=== PATIENT | male | born 1960 | race Two or more races ===

== ENCOUNTER 2023-04-22 11:21 | Inpatient (IN) | payer MEDICAID, OTHER ==
[~2023-04-22] VITALS: Ht 172.7 cm; Wt 80.4 kg
[2023-04-22 12:37] LABS: Basophils # (auto) 0 10 ^3/uL (0-0.2); Basophils % (auto) 0.6 % (0.0-2.0); Eosinophils # (auto) 0.2 10 ^3/uL (0-0.8); Eosinophils % (auto) 2.4 % (0.0-7.0); Hematocrit 42.5 % (41.0-53.0); Hemoglobin 13.9 g/dL (13.5-17.5); Lymphocytes # (auto) 2.6 10 ^3/uL (0.4-5.4); Lymphocytes % (auto) 37.5 % (10.0-50.0); Mean Corpuscular Hemoglobin 29.8 pg (28.0-32.0); Mean Corpuscular Hgb Conc. 32.7 g/dL (32.0-36.0); Mean Corpuscular Volume 91.1 fL (80.0-100.0); Monocytes # (auto) 0.5 10 ^3/uL (0-1.3); Monocytes % (auto) 6.5 % (0.0-12.0); Neutrophils # (auto) 3.7 10 ^3/uL (1.6-8.6); Nucleated Red Blood Cells % 0.1 %; Red Blood Cells 4.66 10^6/uL (4.5-5.90); Red Cell Distribution Width 14.3 % (11.8-14.3)
[2023-04-22 12:45] LABS: INR 0.97 (0.9-1.15); Prothrombin Time 10.2 sec (9.3-11.8)
[2023-04-22 12:48] LABS: Alanine Aminotransferase 34 U/L (7-40); Albumin 4.9 g/dL (3.2-4.8); Alkaline Phosphatase 116 U/L (46-116); Anion Gap 7 (5-15); Aspartate Aminotransferase 15 U/L (13-40); BUN/Creatinine Ratio 11.3 (10.0-20.0); Bilirubin, Direct 0.1 mg/dL (<0.3); Bilirubin, Total 0.4 mg/dL (0.2-1.0); Blood Alcohol < 3.0 mg/dL (<10); Blood Urea Nitrogen 8 mg/dL (9-23); Carbon Dioxide 28 mmol/L (20-30); Chloride 106 mmol/L (98-107); Glucose 108 mg/dL (74-106); Potassium 3.8 mmol/L (3.5-5.1); Sodium 141 mmol/L (136-145)
[2023-04-22 12:49] LABS: Total Protein 7.1 g/dL (5.7-8.2)
[2023-04-22 12:50] LABS: Acetaminophen < 2.0 UG/ML (10.0-20.0)
[2023-04-22 12:56] LABS: Salicylate < 3.0 mg/dL (2.8-20.0)
[2023-04-22 13:19] LABS: Lipase 30 U/L (12-53)
[2023-04-22 13:20] LABS: Magnesium 2.1 mg/dL (1.6-2.6)
[2023-04-22 14:23] LABS: Phosphorus 3.9 mg/dL (2.4-5.1)
[2023-04-22 14:59] LABS: Erythrocyte Sedimentation Rate 64 mm/hr (0-20)
[2023-04-22 15:53] VITALS: PULSE 78; RESP 17; O2SAT 98
[2023-04-22 17:15] VITALS: BP 138/54; PULSE 80; RESP 16; TEMP 98; O2SAT 96
[2023-04-22 17:32] VITALS: BP 138/54; PULSE 80; RESP 16; TEMP 98; O2SAT 96
[2023-04-22] MEDS ORDERED: DEXTROSE (50%) 50ML SYRG IV PRN (18:30)
[2023-04-22] MEDS: METOPROLOL TARTRATE 25 MG TAB PO ONE (18:45)
[2023-04-22 20:26] VITALS: PULSE 83; RESP 16; O2SAT 95
[2023-04-22 21:00] VITALS: BP 125/59; PULSE 83; RESP 16; TEMP 97.8; O2SAT 95
[2023-04-22] MEDS: ATORVASTATIN 20 MG TAB PO SCH (22:06)
[2023-04-22] MEDS: ACCU-CHEK COMFORT CURVE STRIP VI SCH (22:06)
[2023-04-22] MEDS: ACETAMINOPHEN 325 MG TAB PO PRN (22:06)
[2023-04-22] MEDS: METOPROLOL TARTRATE 25 MG TAB PO SCH (22:07)
[2023-04-22] MEDS: ASPirin 81 mg TAB PO SCH (22:10)
[2023-04-22] MEDS: InsuLIN REG 1unit/0.01ml Soln (100units/ml) SC SCH (22:15)
[2023-04-23] VITALS (7 sets, daily range): BP systolic 95–122; BP diastolic 54–80; PULSE 71–84; RESP 16–20; TEMP 97.7–98.7; O2SAT 93–100
[2023-04-23 06:06] LABS: RPR Non Reactive (Non Reactive)
[2023-04-23] MEDS ORDERED: FAMO20TA10 PO (08:46)
[2023-04-23] MEDS ORDERED: METF-370 PO (08:46)
[2023-04-23] MEDS ORDERED: CLOP75TA70 PO (08:46)
[2023-04-23] MEDS ORDERED: ATO40T PO (08:46)
[2023-04-23] MEDS ORDERED: EMPA1TAB3 PO (08:46)
[2023-04-23] MEDS ORDERED: INSLANTI SC (08:46)
[2023-04-23] MEDS ORDERED: ASPirin 81 mg TAB PO SCH (10:00)
[2023-04-23] MEDS: CLOPIDOGREL BISULFATE 75 MG TAB PO SCH (12:16)
[2023-04-23] MEDS: ENOXAPARIN SOD 40 MG/0.4 ML SYRINGE SC SCH (12:16)
[2023-04-23] MEDS: LORazepam 2MG/ML-1ML VIAL IV PRN (13:41)
[2023-04-23] MEDS: LORazepam 2MG/ML-1ML VIAL ONE (13:48)
[2023-04-23] MEDS: LORazepam 2MG/ML-1ML VIAL IV ONE (13:49)
[2023-04-24 01:00] VITALS: BP 125/74; PULSE 70; RESP 17; TEMP 98.1; O2SAT 94
[2023-04-24 05:00] VITALS: BP 115/67; PULSE 68; RESP 17; TEMP 97.8; O2SAT 96
[2023-04-24 08:56] VITALS: BP 110/65; PULSE 82; RESP 19; TEMP 98.4; O2SAT 96
[2023-04-24 12:47] VITALS: BP 104/60; PULSE 91; RESP 19; TEMP 97.7; O2SAT 98
== END 2023-04-24 15:05 | disposition home or self-care (01) | DRG 111 ==
LOC: ER 11:21 → OVERFLOW 13:41 → EAST 16:01
PROVIDERS: ADMIT Nurse Practitioner Family; ATTEND Nurse Practitioner Family
DX: R42 Dizziness and giddiness (principal); I69.351 Hemiplegia and hemiparesis following cerebral infarction affecting right dominant side; H53.8 Other visual disturbances; R26.81 Unsteadiness on feet; E11.9 Type 2 diabetes mellitus without complications; Z83.3 Family history of diabetes mellitus; Z82.49 Family history of ischemic heart disease and other diseases of the circulatory system; I69.393 Ataxia following cerebral infarction; Z90.49 Acquired absence of other specified parts of digestive tract; Z82.5 Family history of asthma and other chronic lower respiratory diseases; Z80.1 Family history of malignant neoplasm of trachea, bronchus and lung; Z79.82 Long term (current) use of aspirin; Z79.02 Long term (current) use of antithrombotics/antiplatelets; Z79.899 Other long term (current) drug therapy
CPT/HCPCS: 36415; 70450; 70551; 71045; 80048; 80061; 80076; 80320; 80329; 82962; 83690; 83735; 84100; 84443; 84484; 85025; 85610; 85652; 86592; 92610; 93005; 93306; 93886; 97163; G0378; J1815

== ENCOUNTER 2023-06-08 14:02 | Inpatient (IN) | payer MEDICAID ==
[~2023-06-08] VITALS: Ht 172.7 cm; Wt 83.0 kg
[~2023-06-08 14:02] MED LIST: ATOR-507 PO; CLOP75TA70 PO; EMPA1TAB3 PO; FAMO20TA10 PO; INSLANTI SC; METF-370 PO
[2023-06-08 15:53] LABS: Basophils # (auto) 0.1 10 ^3/uL (0-0.2); Basophils % (auto) 0.6 % (0.0-2.0); Eosinophils # (auto) 0.4 10 ^3/uL (0-0.8); Eosinophils % (auto) 4.7 % (0.0-7.0); Hematocrit 42.9 % (41.0-53.0); Hemoglobin 14.4 g/dL (13.5-17.5); Lymphocytes # (auto) 3.3 10 ^3/uL (0.4-5.4); Lymphocytes % (auto) 39.6 % (10.0-50.0); Mean Corpuscular Hemoglobin 29.6 pg (28.0-32.0); Mean Corpuscular Hgb Conc. 33.5 g/dL (32.0-36.0); Mean Corpuscular Volume 88.2 fL (80.0-100.0); Monocytes # (auto) 0.5 10 ^3/uL (0-1.3); Monocytes % (auto) 6.5 % (0.0-12.0); Neutrophils # (auto) 4.1 10 ^3/uL (1.6-8.6); Neutrophils % (auto) 48.6 % (37.0-80.0); Nucleated Red Blood Cells % 0.1 %; Red Blood Cells 4.86 10^6/uL (4.5-5.90); Red Cell Distribution Width 14.2 % (11.8-14.3); White Blood Cell 8.4 10^3/uL (4.4-10.8)
[2023-06-08 16:12] LABS: Chloride 105 mmol/L (98-107); Potassium 4.1 mmol/L (3.5-5.1); Sodium 141 mmol/L (136-145)
[2023-06-08 16:13] LABS: Anion Gap 7 (5-15); Carbon Dioxide 29 mmol/L (20-30)
[2023-06-08 16:14] LABS: Calcium 9.7 mg/dL (8.5-10.1)
[2023-06-08 16:18] LABS: BUN/Creatinine Ratio 17.2 (10.0-20.0); Blood Urea Nitrogen 16 mg/dL (9-23); Glucose 169 mg/dL (74-106)
[2023-06-08] MEDS ORDERED: DEXTROSE (50%) 50ML SYRG IV PRN (17:15)
[2023-06-08] MEDS ORDERED: MORPHINE SULFATE INJ 2 MG/ml SYRG IV PRN (17:15)
[2023-06-08] MEDS ORDERED: NITROGLYCERIN 0.4 MG SL TAB SL PRN (17:15)
[2023-06-08] MEDS ORDERED: ONDANSETRON HCL 4 MG/2 ML VIAL IV PRN (17:15)
[2023-06-08 18:14] LABS: Free T4 (Free Thyroxine) 1.07 ng/dL (0.89-1.76)
[2023-06-08] MEDS: ACETAMINOPHEN 325 MG TAB PO PRN (21:32)
[2023-06-08] MEDS: LORazepam 2MG/ML-1ML VIAL IV ONE (21:32)
[2023-06-08] MEDS: ACCU-CHEK COMFORT CURVE STRIP VI SCH (21:35)
[2023-06-08] MEDS: InsuLIN REG 1unit/0.01ml Soln (100units/ml) SC SCH (21:53)
[2023-06-08] MEDS: INSULIN LANTUS (GLARGINE) 1 /0.01ml (100units/ml) SC SCH (21:53)
[2023-06-08 21:54] VITALS: PULSE 76; RESP 18; O2SAT 96
[2023-06-08] MEDS: ATORVASTATIN 20 MG TAB PO SCH (22:23)
[2023-06-08] MEDS: FAMOTIDINE 20 MG TAB PO SCH (22:23)
[2023-06-09] VITALS (7 sets, daily range): BP systolic 113–128; BP diastolic 65–77; PULSE 62–97; RESP 15–18; TEMP 97.9–98.3; O2SAT 77–97
[2023-06-09] MEDS: CLOPIDOGREL BISULFATE 75 MG TAB PO SCH (10:17)
[2023-06-09] MEDS: ASPirin 81 mg TAB PO SCH (10:18)
[2023-06-09] MEDS: LORazepam 2MG/ML-1ML VIAL IV ONE (10:46)
[2023-06-10 01:00] VITALS: BP 137/68; PULSE 78; RESP 18; TEMP 97.6; O2SAT 93
[2023-06-10 05:00] VITALS: BP 145/78; PULSE 76; RESP 18; TEMP 98.1; O2SAT 95
[2023-06-10 07:35] VITALS: PULSE 65
[2023-06-10 09:00] VITALS: BP 131/72; PULSE 78; RESP 18; TEMP 97.7; O2SAT 97
[2023-06-10 13:00] VITALS: BP 105/75; PULSE 73; RESP 18; TEMP 97.5; O2SAT 97
[2023-06-10] MEDS ORDERED: EMPA1TAB3 PO (14:28)
[2023-06-10] MEDS ORDERED: CLOP75TA70 PO (14:28)
[2023-06-10] MEDS ORDERED: ATOR-507 PO (14:28)
[2023-06-10] MEDS ORDERED: INSLANTI SC (14:28)
[2023-06-10 16:38] VITALS: BP 101/65; PULSE 75; RESP 17; TEMP 98.3; O2SAT 98
== END 2023-06-10 16:40 | disposition home health service (06) | DRG 47 ==
LOC: ER 14:02 → TELE 17:07 → TELE-WESTW 17:07
PROVIDERS: ADMIT Hospitalist; ATTEND Hospitalist
DX: G45.9 Transient cerebral ischemic attack, unspecified (principal); I69.351 Hemiplegia and hemiparesis following cerebral infarction affecting right dominant side; I69.393 Ataxia following cerebral infarction; R26.81 Unsteadiness on feet; Z83.3 Family history of diabetes mellitus; Z82.49 Family history of ischemic heart disease and other diseases of the circulatory system
CPT/HCPCS: 36415; 70450; 70545; 70551; 80048; 82607; 82962; 83036; 84439; 84443; 84484; 85025; 93005; 93886; 96372; 97163; G0378; J1815

== ENCOUNTER 2023-06-20 09:56 | Inpatient (IN) | payer MEDICAID ==
[~2023-06-20] VITALS: Ht 172.7 cm; Wt 81.3 kg
[2023-06-20 10:35] LABS: Basophils # (auto) 0 10 ^3/uL (0-0.2); Basophils % (auto) 0.6 % (0.0-2.0); Eosinophils # (auto) 0.3 10 ^3/uL (0-0.8); Eosinophils % (auto) 4.1 % (0.0-7.0); Hematocrit 43.9 % (41.0-53.0); Hemoglobin 14.5 g/dL (13.5-17.5); Lymphocytes # (auto) 2.9 10 ^3/uL (0.4-5.4); Lymphocytes % (auto) 37.9 % (10.0-50.0); Mean Corpuscular Hemoglobin 28.9 pg (28.0-32.0); Mean Corpuscular Volume 87.8 fL (80.0-100.0); Monocytes # (auto) 0.5 10 ^3/uL (0-1.3); Neutrophils # (auto) 3.9 10 ^3/uL (1.6-8.6); Neutrophils % (auto) 51.4 % (37.0-80.0); Nucleated Red Blood Cells % 0.1 %; Red Cell Distribution Width 14.3 % (11.8-14.3); White Blood Cell 7.6 10^3/uL (4.4-10.8)
[2023-06-20 10:53] LABS: Chloride 109 mmol/L (98-107); Potassium 4.2 mmol/L (3.5-5.1); Sodium 141 mmol/L (136-145)
[2023-06-20 10:54] LABS: Anion Gap 9 (5-15); Carbon Dioxide 23 mmol/L (20-30)
[2023-06-20 10:55] LABS: Calcium 10.1 mg/dL (8.5-10.1)
[2023-06-20 11:00] LABS: BUN/Creatinine Ratio 15.5 (10.0-20.0); Blood Urea Nitrogen 13 mg/dL (9-23); Glucose 195 mg/dL (74-106)
[2023-06-20] MEDS ORDERED: MORPHINE SULFATE INJ 2 MG/ml SYRG IV PRN (15:15)
[2023-06-20] MEDS ORDERED: ACETAMINOPHEN 325 MG TAB PO PRN (15:15)
[2023-06-20] MEDS ORDERED: NITROGLYCERIN 0.4 MG SL TAB SL PRN (15:15)
[2023-06-20] MEDS ORDERED: HYDROcodone-ACET 5/325MG TAB PO PRN (15:15)
[2023-06-20] MEDS ORDERED: DEXTROSE (50%) 50ML SYRG IV PRN (15:30)
[2023-06-20] MEDS: LORazepam 2MG/ML-1ML VIAL IV ONE (16:29)
[2023-06-20] MEDS: ACCU-CHEK COMFORT CURVE STRIP VI SCH (17:00)
[2023-06-20] MEDS: InsuLIN REG 1unit/0.01ml Soln (100units/ml) SC SCH (17:00)
[2023-06-20] MEDS: ATORVASTATIN 20 MG TAB PO SCH (18:00)
[2023-06-21] MEDS: InsuLIN REG 1unit/0.01ml Soln (100units/ml) SC SCH (00:53)
[2023-06-21] MEDS: ONDANSETRON HCL 4 MG/2 ML VIAL IV PRN (00:53)
[2023-06-21] MEDS: MORPHINE SULFATE INJ 2 MG/ml SYRG IV PRN (00:54)
[2023-06-21] MEDS: FAMOTIDINE 20 MG TAB PO SCH (00:54)
[2023-06-21 08:00] VITALS: PULSE 69; RESP 13; O2SAT 94
[2023-06-21] MEDS: CLOPIDOGREL BISULFATE 75 MG TAB PO SCH (10:42)
[2023-06-21] MEDS: EMPAGLIFLOZIN 10 MG TAB PO SCH (10:43)
[2023-06-21] MEDS: ENOXAPARIN SOD 40 MG/0.4 ML SYRINGE SC SCH (10:44)
[2023-06-21 18:18] VITALS: BP 124/70; PULSE 75; RESP 18; TEMP 97.9; O2SAT 95
[2023-06-21 18:45] VITALS: TEMP 97.8
== END 2023-06-21 18:56 | disposition home or self-care (01) | DRG 861 ==
LOC: ER 09:56 → TELE 15:09
PROVIDERS: ADMIT Internal Medicine; ATTEND Internal Medicine
DX: R53.1 Weakness (principal); I66.01 Occlusion and stenosis of right middle cerebral artery; E78.5 Hyperlipidemia, unspecified; I10 Essential (primary) hypertension; E11.9 Type 2 diabetes mellitus without complications; Z79.02 Long term (current) use of antithrombotics/antiplatelets; Z79.4 Long term (current) use of insulin; Z82.49 Family history of ischemic heart disease and other diseases of the circulatory system; Z83.3 Family history of diabetes mellitus; Z86.73 Personal history of transient ischemic attack (TIA), and cerebral infarction without residual deficits; Z90.49 Acquired absence of other specified parts of digestive tract
CPT/HCPCS: 36415; 70496; 70551; 80048; 82962; 84484; 85025; 93005; 97163; G0378; J1815; J2405

== ENCOUNTER 2023-07-18 17:08 | Emergency (ER) | payer MEDICAID ==
[~2023-07-18] VITALS: Ht 172.7 cm; Wt 81.8 kg
[2023-07-18 19:15] LABS: Basophils # (auto) 0.1 10 ^3/uL (0-0.2); Basophils % (auto) 0.5 % (0.0-2.0); Eosinophils # (auto) 0.3 10 ^3/uL (0-0.8); Eosinophils % (auto) 2.6 % (0.0-7.0); Hematocrit 42.9 % (41.0-53.0); Hemoglobin 14.5 g/dL (13.5-17.5); Lymphocytes # (auto) 3.3 10 ^3/uL (0.4-5.4); Lymphocytes % (auto) 33.1 % (10.0-50.0); Mean Corpuscular Hemoglobin 30.1 pg (28.0-32.0); Mean Corpuscular Hgb Conc. 33.9 g/dL (32.0-36.0); Mean Corpuscular Volume 88.6 fL (80.0-100.0); Monocytes # (auto) 0.8 10 ^3/uL (0-1.3); Monocytes % (auto) 8.1 % (0.0-12.0); Neutrophils # (auto) 5.6 10 ^3/uL (1.6-8.6); Neutrophils % (auto) 55.7 % (37.0-80.0); Red Blood Cells 4.84 10^6/uL (4.5-5.90); Red Cell Distribution Width 13.9 % (11.8-14.3)
[2023-07-18 19:35] LABS: Alanine Aminotransferase 26 U/L (7-40); Albumin 4.9 g/dL (3.2-4.8); Alkaline Phosphatase 109 U/L (46-116); Anion Gap 10 (5-15); Aspartate Aminotransferase 9 U/L (13-40); BUN/Creatinine Ratio 12.3 (10.0-20.0); Bilirubin, Total 0.9 mg/dL (0.2-1.0); Blood Urea Nitrogen 10 mg/dL (9-23); Calcium 10.3 mg/dL (8.7-10.4); Carbon Dioxide 26 mmol/L (20-30); Chloride 104 mmol/L (98-107); Glucose 98 mg/dL (74-106); Potassium 3.7 mmol/L (3.5-5.1); Sodium 140 mmol/L (136-145); Total Protein 7.3 g/dL (5.7-8.2)
[2023-07-18] MEDS ORDERED: NAP500T GT (20:06)
[2023-07-18 22:22] VITALS: BP 137/72; PULSE 79; RESP 19; TEMP 97.9; O2SAT 97
== END 2023-07-18 22:24 | disposition home or self-care (01) ==
LOC: ER 17:08
DX: S50.01XA Contusion of right elbow, initial encounter (principal); R55 Syncope and collapse; E11.9 Type 2 diabetes mellitus without complications; Z86.73 Personal history of transient ischemic attack (TIA), and cerebral infarction without residual deficits; W18.2XXA Fall in (into) shower or empty bathtub, initial encounter; Y93.89 Activity, other specified; Y92.89 Other specified places as the place of occurrence of the external cause; Y99.8 Other external cause status
CPT/HCPCS: 36415; 70450; 73070; 74176; 80053; 82962; 84484; 85025; 93005

== ENCOUNTER 2023-09-11 01:34 | Emergency (ER) | payer MEDICAID ==
[~2023-09-11] VITALS: Ht 172.7 cm; Wt 82.0 kg
[~2023-09-11 01:34] MED LIST changes: +NAP500T GT
[2023-09-11 01:52] VITALS: BP 177/83; PULSE 87; RESP 18; TEMP 98.8; O2SAT 97
[2023-09-11] MEDS: FLUORESCEIN SOD OPTH TEST STRIP LEFTEYE ONE (03:03)
[2023-09-11] MEDS: TETRACAINE HCL 0.5% OPTH(EYE) SOLN 4ML LEFTEYE ONE (03:04)
== END 2023-09-11 03:27 | disposition home or self-care (01) ==
LOC: ER 01:34
DX: H57.8A3 Foreign body sensation, bilateral eyes (principal); E11.9 Type 2 diabetes mellitus without complications; Z86.73 Personal history of transient ischemic attack (TIA), and cerebral infarction without residual deficits; Z98.890 Other specified postprocedural states; Z79.899 Other long term (current) drug therapy

== ENCOUNTER 2024-02-09 12:35 | Emergency (ER) | payer MEDICAID ==
[~2024-02-09] VITALS: Ht 172.7 cm; Wt 79.0 kg
--- NOTE | 2024-02-09 13:17 | ED.PDOC ---
History of Present Illness HPI Comments 63Y M with PMHx DM and CVA presents to ED for chief complaint headache x1week. Additional symptoms include nausea and RLE pain. Pt states he has chronic RUE pain after the CVA, but the RLE pain is new. Pt denies chest pain, SOB, weakness, vomiting, and diarrhea. Pt states OTC pain meds have not provided reli ef. Chief Complaint: Headache Time Seen by MD: 12:52 Primary Care Provider: SAMANTA Reviewed Notes: Nurses Notes, Medications, Allergies Allergies: Coded Allergies: NO KNOWN ALLERGIES (Unverified , 04/22/23) Home Meds Active Scripts Naproxen (NAPROSYN TABLET) 500 Mg Tb, 500 MG GT BID for 10 Days, #20 TAB Prov:PABLITO CHARLES MD 07/18/23 Insulin Glargine (Lantus) 100 Unit/Ml Inj, 45 UNIT SC HS, #10 INJ Prov:BELLO GUERRERO MD 06/10/23 Clopidogrel Bisulfate (CLOPIDOGREL) 75 Mg Tab, 75 MG PO DAILY for 30 Days, #60 MG Prov:BELLO GUERRERO MD 06/10/23 Empagliflozin (Jardiance) 25 Mg Tab, 25 MG PO DAILY, #60 TAB Prov:BELLO GUERRERO MD 06/10/23 Atorvastatin Calcium (Lipitor) 40 Mg Tab, 1 TAB PO QPM, #90 TAB 1 Refill Prov:BELLO GUERRERO MD 06/10/23 Reported Medications Metformin Hydrochloride (Metformin Hcl) 500 Mg Tab, 1000 MG PO BID for 30 Days, MG 04/23/23 Famotidine (PEPCID TABLET) 20 Mg Tb, 1 TAB PO BID, #60 TAB 5 Refills 04/23/23 Information Source: Patient Mode of Arrival: Ambulatory Severity: Mild Timing: Weeks Duration: Since onset Past Medical History PAST MEDICAL HISTORY: CVA, DM Surgical History: Appendectomy, Hernia Repair Family History Family History: Family hx of DM, Family hx of HTN Social History Smoker: Non-Smoker Alcohol: Denies ETOH Use Drugs: Denies Drug Use Lives In: Home Constitutional: denies: chills, diaphoresis, fatigue, fever, malaise, sweats, weakness, others EENTM: denies: blurred vision, double vision, ear bleeding, ear discharge, ear drainage, ear pain, ear ringing, eye pain, eye redness, hearing loss, mouth pain, mouth swelling, nasal discharge, nose bleeding, nose congestion, nose pain, photophobia, tearing, throat pain, throat swelling, voice changes, others Respiratory: denies: cough, hemoptysis, orthopnea, SOB at rest, shortness of breath, SOB with excertion, stridor, wheezing, others Cardiovascular: denies: chest pain, dizzy spells, diaphoresis, Dyspnea on exertion, edema, irregular heart beat, left arm pain, lightheadedness, palpitations, PND, syncope, others Gastrointestinal: reports: nausea; denies: abdomen distended, abdominal pain, blood streaked bowels, constipated, diarrhea, dysphagia, difficulty swallowing, hematemesis, melena, poor appetite, poor fluid intake, rectal bleeding, rectal pain, vomiting, others Genitourinary: denies: burning, dysuria, flank pain, frequency, hematuria, incontinence, penile discharge, penile sore, pain, testicle pain, testicle swelling, urgency, others Neurological: reports: headache; denies: dizziness, fainting, left sided numbness, left sided weakness, numbness, paresthesia, pre-existing deficit, right sided numbness, right sided weakness, seizure, speech problems, tingling, tremors, weakness, others Musculoskeletal: reports: others (RLE pain); denies: back pain, gout, joint pain, joint swelling, muscle pain, muscle stiffness, neck pain Integumetry: denies: bruises, change in color, change in hair/nails, dryness, laceration, lesions, lumps, rash, wounds, others Allergic/Immunocompromised: denies: Difficulty Healing, Frequent Infections, Hives, Itching, others Hematologic/Lymphatic: denies: anemia, blood clots, easy bleeding, easy bruising, swollen glands, others Endocrine: denies: excessive hunger, excessive sweating, excessive thirst, excessive urination, flushing, intolerance to cold, intolerance to heat, unexplained weight gain, unexplained weight loss, others Psychiatric: denies: anxiety, bipolar disorder, depression, hopeless, panic disorder, schizophrenia, sleepless, suicidal, others All Other Systems: Reviewed and Negative Physical Exam General Appearance: No Apparent Distress, Normal HEENT: Normal ENT Inspection, Pharynx Normal, TMs Normal Neck: Full Range of Motion, Non-Tender, Normal, Normal Inspection Respiratory: Chest Non-Tender, Lungs Clear, No Accessory Muscle Use, No Respiratory Distress, Normal Breath Sounds Cardiovascular: No Edema, No JVD, No Murmur, No Gallop, Normal Peripheral Pulses, Regular Rate/Rhythm Breast Exam: Deferred Gastrointestinal: No Organomegaly, Non Tender, No Pulsatile Mass, Normal Bowel Sounds, Soft Genitalia: Deferred Pelvic: Deferred Rectal: Deferred Extremities: No calf tenderness, Normal capillary refill, Normal inspection, Normal range of motion, Non-tender, No pedal edema Musculoskeletal : Apperance: Normal Neurologic: Alert, doll wig maker rooted hair II-XII nml as Tested, No Motor Deficits, Normal Affect, Normal Mood, No Sensory Deficits Cerebellar Function: NOT DONE Reflexes: NOT DONE Skin: Dry, Normal Color, Warm Lymphatic: No Adenopathy Was a procedure done? Was a procedure done?: No Differential Dx Considerations may include: Migraine, CVA, ACS, electrolyte abnormality X-Ray, Labs, Meds, VS Vital Signs Date Time Temp Pulse Resp B/P (MAP) Pulse Ox O2 Delivery O2 Flow Rate FiO2 02/09/24 16:13 71 18 98 Room Air 02/09/24 16:13 97.6 71 18 122/62 (82) 98 97.6 02/09/24 16:07 97.6 71 18 122/62 (82) 98 97.6 02/09/24 13:03 97.9 90 18 123/80 (94) 97 Current Medications Medications (Trade) Dose Ordered Sig/Carly Route Start Time Stop Time Status Last Admin Acetaminophen (Tylenol Tablet) 650 mg ONCE ONCE PO 02/09/24 13:00 02/09/24 13:01 DC 02/09/24 16:11 Ketorolac Tromethamine (Toradol Injection) 15 mg ONCE ONCE IV 02/09/24 13:00 02/09/24 13:01 DC 02/09/24 16:24 Metoclopramide HCl (Reglan Injection) 10 mg ONCE ONCE IV 02/09/24 13:00 02/09/24 13:01 DC 02/09/24 16:23 Sodium Chloride 1,000 ml @ 1,000 mls/hr Q1H ONCE IV 02/09/24 13:00 02/09/24 13:59 DC 02/09/24 14:17 Time of 1ST Reevaluation: 13:22 Reevaluation 1ST: Unchanged Patient Education/Counseling: Diagnosis, Treatment Family Education/Counseling: No Family Present Departure 1 Departure Time of Disposition: 17:40 (Patient likely with a migraine. Patient is feeling better would like to go home. We will discharge patient home with outpatient follow up) Impression: Primary Impression: Migraine Qualified Codes: G43.109 - Migraine with aura, not intractable, without status migrainosus Disposition: HOME / SELF CARE / HOMELESS Condition: Stable Additional Instructions: You likely had a migraine. You received medications in the ER. You can take tylenol and motrin as needed for pain. You should stay well rested and well hydrated. It is important to follow up with your regular doctor within one week. If your symptoms worsen or you have any other concerns then please return to the ER. Discharged With: Self Critical Care Note Critical Care Time?: No Stability Stability form required: No Heart Score Heart Score: Heart Score Response (Comments) Value History N/A 0 EKG N/A 0 Age N/A 0 Risk Factors N/A 0 Troponin N/A 0 Total 0 I personally scribed for AVINASH TOBIAS MD ([email or web address]) on 02/09/24 at 13:17. Electronically submitted by Coby Eli ([email or web address]). AVINASH TOBIAS MD Feb 09, 2024 13:17
[2024-02-09] MEDS: SODIUM CHLORIDE 0.9% 1,000 ML IV ONE (14:17)
[2024-02-09 16:07] VITALS: BP 122/62; PULSE 71; RESP 18; TEMP 97.6; O2SAT 98
[2024-02-09] MEDS: ACETAMINOPHEN 325 MG TAB PO ONE (16:11)
[2024-02-09 16:13] VITALS: BP 122/62; PULSE 71; RESP 18; TEMP 97.6; O2SAT 98
[2024-02-09] MEDS: METOCLOPRAMIDE HCL 5MG/ml INJ 2ml VIAL IV ONE (16:23)
[2024-02-09] MEDS: KETOROLAC TROMETH 30 MG/ML 1ML VIAL IV ONE (16:24)
== END 2024-02-09 18:04 | disposition home or self-care (01) ==
LOC: ER 12:35
DX: G43.109 Migraine with aura, not intractable, without status migrainosus (principal); E11.9 Type 2 diabetes mellitus without complications; Z79.02 Long term (current) use of antithrombotics/antiplatelets; Z79.1 Long term (current) use of non-steroidal anti-inflammatories (NSAID); Z79.84 Long term (current) use of oral hypoglycemic drugs; Z86.73 Personal history of transient ischemic attack (TIA), and cerebral infarction without residual deficits; Z90.49 Acquired absence of other specified parts of digestive tract; Z98.890 Other specified postprocedural states
CPT/HCPCS: 96361; 96374; 96375; 99284; J1885; J2765; J7030

== ENCOUNTER 2024-04-07 09:26 | Emergency (ER) | payer MEDICAID ==
[~2024-04-07] VITALS: Ht 172.7 cm; Wt 104.5 kg
[2024-04-07 09:58] VITALS: BP 163/78; PULSE 84; RESP 18; TEMP 97.9; O2SAT 98
--- NOTE | 2024-04-07 10:12 | ED.PDOC ---
History of Present Illness(SKN HPI Comments A 63 YEAR OLD MALE PRESENTS TO THE ED WITH COMPLAINT OF RASH. PATIENT STATES HE HAS BEEN EXPERIENCING AN ITCHY GENERALIZED BODY RASH FOR THE PAST 3 DAYS. PATIENT DENIES FEVER, CHILLS, SHORTNESS OF BREATH, CHEST PAIN, ABDOMINAL PAIN, NAUSEA, VOMITING, HEADACHE, OR OTHER COMPLAINTS. NO OTHER SYMPTOMS OR MODIFYING FACTORS AT THIS TIME. PATIENT IS ALERT, ORIENTED X 4, AND HAS STEADY GAIT. Chief Complaint: Rash Time Seen by MD: 09:43 Primary Care Provider: SAMANTA History of Present Illness: Nurses Notes, Medications, Allergies Allergies: Coded Allergies: NO KNOWN ALLERGIES (Unverified , 04/22/23) Home Meds Active Scripts Triamcinolone Acetonide (Triamcinolone Acetonide) 0.1 % Oin, 1 APPLIC TOP BID, #80 GRAMS Prov:DANDRE ARZOLA 04/07/24 Methylprednisolone (Medrol Dosepak) 4 Mg David, 4 MG PO UD, #21 TAB UAD Prov:DANDRE ARZOLA 04/07/24 Naproxen (NAPROSYN TABLET) 500 Mg Tb, 500 MG GT BID for 10 Days, #20 TAB Prov:PABLITO CHARLES MD 07/18/23 Insulin Glargine (Lantus) 100 Unit/Ml Inj, 45 UNIT SC HS, #10 INJ Prov:BELLO GUERRERO MD 06/10/23 Clopidogrel Bisulfate (CLOPIDOGREL) 75 Mg Tab, 75 MG PO DAILY for 30 Days, #60 MG Prov:BELLO GUERRERO MD 06/10/23 Empagliflozin (Jardiance) 25 Mg Tab, 25 MG PO DAILY, #60 TAB Prov:BELLO GUERRERO MD 06/10/23 Atorvastatin Calcium (Lipitor) 40 Mg Tab, 1 TAB PO QPM, #90 TAB 1 Refill Prov:BELLO GUERRERO MD 06/10/23 Reported Medications Metformin Hydrochloride (Metformin Hcl) 500 Mg Tab, 1000 MG PO BID for 30 Days, MG 04/23/23 Famotidine (PEPCID TABLET) 20 Mg Tb, 1 TAB PO BID, #60 TAB 5 Refills 04/23/23 Information Source: Patient Mode of Arrival: Ambulatory Severity: Moderate Timing: Days Duration: Since onset, Days Prehospital treatment: None Location: Abdomen, Arm, Back, Extremities Mechanism: Spontaneous Onset Developed: Rash Occurence: Indoors Object: None Condition of Object: None Retained Foreign Body: No Wound Type: None Immunization Status of Animal: NA Tetanus: Unknown History of: None Associated Signs and Symptoms: Redness Past Medical History PAST MEDICAL HISTORY: CVA, DM Surgical History: Appendectomy, Hernia Repair Family History Family History: Reviewed,noncontributory to illness, Family hx of DM, Family hx of HTN Social History Smoker: Non-Smoker Alcohol: Denies ETOH Use Drugs: Denies Drug Use Lives In: Home Constitutional: denies: chills, diaphoresis, fatigue, fever, malaise, sweats, weakness, others EENTM: denies: blurred vision, double vision, ear bleeding, ear discharge, ear drainage, ear pain, ear ringing, eye pain, eye redness, hearing loss, mouth pain, mouth swelling, nasal discharge, nose bleeding, nose congestion, nose pain, photophobia, tearing, throat pain, throat swelling, voice changes, others Respiratory: denies: cough, hemoptysis, orthopnea, SOB at rest, shortness of breath, SOB with excertion, stridor, wheezing, others Cardiovascular: denies: chest pain, dizzy spells, diaphoresis, Dyspnea on exertion, edema, irregular heart beat, left arm pain, lightheadedness, palpitations, PND, syncope, others Gastrointestinal: denies: abdomen distended, abdominal pain, blood streaked bowels, constipated, diarrhea, dysphagia, difficulty swallowing, hematemesis, melena, nausea, poor appetite, poor fluid intake, rectal bleeding, rectal pain, vomiting, others Genitourinary: denies: burning, dysuria, flank pain, frequency, hematuria, incontinence, penile discharge, penile sore, pain, testicle pain, testicle swelling, urgency, others Neurological: denies: dizziness, fainting, headache, left sided numbness, left sided weakness, numbness, paresthesia, pre-existing deficit, right sided numbness, right sided weakness, seizure, speech problems, tingling, tremors, weakness, others Musculoskeletal: denies: back pain, gout, joint pain, joint swelling, muscle pain, muscle stiffness, neck pain, others Integumetry: reports: rash; denies: bruises, change in color, change in hair/nails, dryness, laceration, lesions, lumps, wounds, others Allergic/Immunocompromised: reports: Hives, Itching; denies: Difficulty Healing, Frequent Infections, others Hematologic/Lymphatic: denies: anemia, blood clots, easy bleeding, easy bruising, swollen glands, others Endocrine: denies: excessive hunger, excessive sweating, excessive thirst, excessive urination, flushing, intolerance to cold, intolerance to heat, unexp lained weight gain, unexplained weight loss, others Psychiatric: denies: anxiety, bipolar disorder, depression, hopeless, panic disorder, schizophrenia, sleepless, suicidal, others All Other Systems: Reviewed and Negative Physical Exam General Appearance: No Apparent Distress, Normal HEENT: Normal ENT Inspection, PERRL/EOMI, Pharynx Normal, TMs Normal Neck: Full Range of Motion, Non-Tender, Normal, Normal Inspection Respiratory: Chest Non-Tender, Lungs Clear, No Accessory Muscle Use, No Resp iratory Distress, Normal Breath Sounds Cardiovascular: No Edema, No JVD, No Murmur, No Gallop, Normal Peripheral Pulses, Regular Rate/Rhythm Breast Exam: Deferred Gastrointestinal: No Organomegaly, Non Tender, No Pulsatile Mass, Normal Bowel Sounds, Soft Genitalia: Deferred Pelvic: Deferred Rectal: Deferred Extremities: No calf tenderness, Normal capillary refill, Normal inspection, Normal range of motion, Non-tender, No pedal edema Musculoskeletal : Apperance: Normal Neurologic: Alert, knowledge management consultant II-XII nml as Tested, No Motor Deficits, Normal Affect, Normal Mood, No Sensory Deficits Cerebellar Function: Normal Reflexes: Normal Skin: Dry, Rash (ERYTHEMA PAPULAR AND MACULAR SKIN RASH ON UPPER AND LOWER EXTREMITY, ABD WALL AND BACK, NO TENDERNESS, SWELLING AND DEFORMITY. ), Warm Peripheral Pulses: 2+ carotid (R), 2+ carotid (L) Lymphatic: No Adenopathy Was a procedure done? Was a procedure done?: No Differential Diagnosis (INTG) Differential Diagnosis: N/A Differential Diagnosis: Atopic dermatitis, Contact Dermatitis, Intertrigo, Scabies, Tinea, Urticaria Differential Diagnosis: N/A Abscess: N/A Differential Diagnosis: N/A X-Ray, Labs, Meds, VS Vital Signs Date Time Temp Pulse Resp B/P (MAP) Pulse Ox O2 Delivery O2 Flow Rate FiO2 3/1/25 09:58 84 18 98 Room Air 04/07/24 09:58 97.9 84 18 163/78 (106) 98 97.9 04/07/24 09:30 97.9 84 18 163/78 (106) 98 Current Medications Medications (Trade) Dose Ordered Sig/Carly Route Start Time Stop Time Status Last Admin Methylprednisolone Sodium Succinate (Solu Medrol) 125 mg ONCE ONCE IM 04/07/24 10:30 04/07/24 10:31 DC 04/07/24 10:30 X-Ray, Labs, Meds, VS Comment EXTERNAL MEDICAL RECORDS REVIEWED: [NONE] INDEPENDENT HISTORIANS: [NONE] SOCIAL DETERMINANTS OF HEALTH: [NONE] LABS ORDERED: NONE REVIEWED AND INTERPRETED RESULTS: NONE IMAGING ORDERED: NONE TREATMENTS ORDERED: SOLU-MEDROL 125 MG IM PROCEDURES PERFORMED: NONE CRITICAL CARE TIME: NONE I HAVE DISCUSSED THE PATIENT WITH THE ATTENDING PHYSICIAN DR. NOAM LOPEZ AND HE AGREES WITH THE PATIENT'S PLAN OF CARE AND DISPOSITION. BASED ON HISTORY OF PRESENT ILLNESS, AND PHYSICAL EXAM, PATIENT WILL BE DISCHARGED HOME. DISCUSSED PLAN FOR DISCHARGE HOME WITH RX []. MEDICATION WARNINGS GIVEN. SHARED DECISION MAKING: PATIENT INSTRUCTED TO FOLLOW UP WITH PRIMARY CARE PROVIDER IN 1-2 DAYS FOR RE-EVALUATION OF SYMPTOMS. PATIENT VERBALIZES UNDERSTANDING TO RETURN TO ED FOR NEW OR WORSENING SYMPTOMS OR IF FOLLOW UP WITH PCP CANNOT BE OBTAINED. PATIENT FEELS COMFORTABLE GOING HOME AT THIS TIME. ALL QUESTIONS ADDRESSED AT TIME OF DISCHARGE. Time of 1ST Reevaluation: 10:50 Reevaluation 1ST: Improved Patient Education/Counseling: Diagnosis, Treatment, Need For Follow Up Family Education/Counseling: Diagnosis, Treatment, Need For Follow Up Medical Screening: No EMC Exist At This Time Departure 1 Departure Time of Disposition: 10:50 Impression: Primary Impression: Allergic contact dermatitis Qualified Codes: L23.9 - Allergic contact dermatitis, unspecified cause Disposition: HOME / SELF CARE / HOMELESS Condition: Stable Additional Instructions: FOLLOW-UP WITH PCP IN 1 TO 2 DAYS. TAKE MEDICATIONS PRESCRIBED. RETURN TO ED FOR ANY NEW OR WORSENING SYMPTOMS. e-Prescriptions Triamcinolone Acetonide (Triamcinolone Acetonide) 0.1 % Oin 1 APPLIC TOP BID, #80 GRAMS Prov: DANDRE ARZOLA 04/07/24 Methylprednisolone (Medrol Dosepak) 4 Mg David 4 MG PO UD, #21 TAB UAD Prov: DANDRE ARZOLA 04/07/24 Discharged With: Self Critical Care Note Critical Care Time?: No Stability Stability form required: No I personally scribed for DANDRE ARZOLA ([email or web address]) on 04/07/24 at 10:12. Electronically submitted by Scott Dahl ([email or web address]). DANDRE ARZOLA Apr 07, 2024 10:12
[2024-04-07] MEDS: methylPREDNISolone SOD SUCC 125 MG/2 ML VL IM ONE (10:30)
[2024-04-07] MEDS ORDERED: TRIA0.1O TOP (10:31)
[2024-04-07] MEDS ORDERED: METH4PAK PO (10:31)
== END 2024-04-07 10:44 | disposition home or self-care (01) ==
LOC: ER 09:26
DX: L23.9 Allergic contact dermatitis, unspecified cause (principal); E11.9 Type 2 diabetes mellitus without complications; Z79.02 Long term (current) use of antithrombotics/antiplatelets; Z79.1 Long term (current) use of non-steroidal anti-inflammatories (NSAID); Z79.84 Long term (current) use of oral hypoglycemic drugs; Z86.73 Personal history of transient ischemic attack (TIA), and cerebral infarction without residual deficits; Z90.49 Acquired absence of other specified parts of digestive tract; Z98.890 Other specified postprocedural states
CPT/HCPCS: 96372; 99283; J2919

== ENCOUNTER 2024-06-20 02:55 | Emergency (ER) | payer MEDICAID ==
[~2024-06-20] VITALS: Ht 172.7 cm; Wt 87.2 kg
[~2024-06-20 02:55] MED LIST changes: +METH4PAK PO; +TRIA0.1O TOP
[2024-06-20] MEDS: predniSONE 20 MG TAB PO ONE (03:23)
--- NOTE | 2024-06-20 03:23 | ED.PDOC ---
History of Present Illness HPI Comments 63 y/o M presents with 3-4 week history of shortness of breath and nonproductive cough, with associated bilateral rib pain. Patient endorses on symptoms worsening, today, after persisting following initial, unprovoked onset. Symptoms worsen whenever laying for prolong periods of time. Reports history of stroke in January 2023 and developing PNA afterwards in addition to DMII, and HTN. Denies any chest pain, phlegm production, fever, chills, or further associated symptoms or modifiers. Chief Complaint: Cough Time Seen by MD: 03:15 Primary Care Provider: SAMANTA Reviewed Notes: Nurses Notes, Medications, Allergies Allergies: Coded Allergies: NO KNOWN ALLERGIES (Unverified , 04/22/23) Home Meds Active Scripts Prednisone (Prednisone) 20 Mg Tab, 20 MG PO BID for 5 Days, #10 MG Prov:CELY BERNAL MD 06/20/24 Azithromycin (Azithromycin) 500 Mg Tab, 1 TAB PO DAILY for 7 Days, #7 TAB Prov:CELY BERNAL MD 06/20/24 Albuterol Sulfate (Albuterol Sulfate Hfa) 108 Mcg/Act Aer, 108 MCG IN Q6HP PRN, #1 AER 3 Refills Prov:CELY BERNAL MD 06/20/24 Triamcinolone Acetonide (Triamcinolone Acetonide) 0.1 % Oin, 1 APPLIC TOP BID, #80 GRAMS Prov:DANDRE ARZOLA 04/07/24 Methylprednisolone (Medrol Dosepak) 4 Mg David, 4 MG PO UD, #21 TAB UAD Prov:DANDRE ARZOLA 04/07/24 Naproxen (NAPROSYN TABLET) 500 Mg Tb, 500 MG GT BID for 10 Days, #20 TAB Prov:PABLITO CHARLES MD 07/18/23 Insulin Glargine (Lantus) 100 Unit/Ml Inj, 45 UNIT SC HS, #10 INJ Prov:BELLO GUERRERO MD 06/10/23 Clopidogrel Bisulfate (CLOPIDOGREL) 75 Mg Tab, 75 MG PO DAILY for 30 Days, #60 MG Prov:BELLO GUERRERO MD 06/10/23 Empagliflozin (Jardiance) 25 Mg Tab, 25 MG PO DAILY, #60 TAB Prov:BELLO GUERRERO MD 06/10/23 Atorvastatin Calcium (Lipitor) 40 Mg Tab, 1 TAB PO QPM, #90 TAB 1 Refill Prov:BELLO GUERRERO MD 06/10/23 Reported Medications Metformin Hydrochloride (Metformin Hcl) 500 Mg Tab, 1000 MG PO BID for 30 Days, MG 04/23/23 Famotidine (PEPCID TABLET) 20 Mg Tb, 1 TAB PO BID, #60 TAB 5 Refills 04/23/23 Information Source: Patient Mode of Arrival: Ambulatory Severity: Moderate Timing: Weeks Duration: Since onset Prehospital treatment: None Past Medical History PAST MEDICAL HISTORY: CVA, DM, HTN Past Medical History (Other): PNA Surgical History: Appendectomy, Hernia Repair Surgical History (Other): leg surgery Family History Family History: Reviewed,noncontributory to illness, Family hx of DM, Family hx of HTN Social History Smoker: Non-Smoker Alcohol: Denies ETOH Use Drugs: Denies Drug Use Lives In: Home All Other Systems: Reviewed and Negative (Comprehensive systems review obtained and negative except for what is stated in the HPI.) Physical Exam General Appearance: Mild Distress, Normal HEENT: Normal ENT Inspection, Pharynx Normal, TMs Normal Neck: Full Range of Motion, Non-Tender, Normal, Normal Inspection Respiratory: Chest Non-Tender, No Accessory Muscle Use, No Respiratory Distress, Wheezing (mild, scattered wheezing, bilaterally) Cardiovascular: No Edema, No JVD, No Murmur, No Gallop, Normal Peripheral Pulses, Regular Rate/Rhythm Breast Exam: Deferred Gastrointestinal: No Organomegaly, Non Tender, No Pulsatile Mass, Normal Bowel Sounds, Soft Genitalia: Deferred Pelvic: Deferred Rectal: Deferred Extremities: No calf tenderness, Normal capillary refill, Normal inspection, Normal range of motion, Non-tender, No pedal edema Musculoskeletal : Apperance: Normal Neurologic: Alert, licensed investment sales assistant II-XII nml as Tested, No Motor Deficits, Normal Affect, Normal Mood, No Sensory Deficits Cerebellar Function: Normal Reflexes: Normal Skin: Dry, Normal Color, Warm Lymphatic: No Adenopathy Was a procedure done? Was a procedure done?: No EKG EKG : Pulse Rate (adult): 72 [place]: Normal Cardiac Rhythm: NSR Block: None Hypertrophy: None ST: Normal Differential Dx Considerations may include: PNA, URI, viral syndrome, among others X-Ray, Labs, Meds, VS Vital Signs Date Time Temp Pulse Resp B/P (MAP) Pulse Ox O2 Delivery O2 Flow Rate FiO2 06/20/24 03:30 18 96 Room Air* 0 21 06/20/24 03:23 72 06/20/24 03:00 97.8 76 16 177/78 (111) 96 97.8 06/20/24 03:00 16 96 Room Air* 0 21 Lab Test 06/20/24 04:37 06/20/24 03:22 Range/Units Troponin I High Sensitivity Pending 10 </=54 ng/L White Blood Count 12.4 H 4.4-10.8 10^3/uL Red Blood Count 4.94 4.5-5.90 10^6/uL Hemoglobin 14.9 13.5-17.5 g/dL Hematocrit 44.7 41.0-53.0 % Mean Corpuscular Volume 90.5 80.0-100.0 fL Mean Corpuscular Hemoglobin 30.1 28.0-32.0 pg Mean Corpuscular Hemoglobin Concent 33.2 32.0-36.0 g/dL Red Cell Distribution Width 14.1 11.8-14.3 % Platelet Count 333 140-450 10^3/uL Mean Platelet Volume 8.8 6.9-10.8 fL Neutrophils (%) (Auto) 59.3 37.0-80.0 % Lymphocytes (%) (Auto) 28.9 10.0-50.0 % Monocytes (%) (Auto) 6.3 0.0-12.0 % Eosinophils (%) (Auto) 4.9 0.0-7.0 % Basophils (%) (Auto) 0.6 0.0-2.0 % Neutrophils # (Auto) 7.4 1.6-8.6 10 ^3/uL Lymphocytes # (Auto) 3.6 0.4-5.4 10 ^3/uL Monocytes # (Auto) 0.8 0-1.3 10 ^3/uL Eosinophils # (Auto) 0.6 0-0.8 10 ^3/uL Basophils # (Auto) 0.1 0-0.2 10 ^3/uL Nucleated Red Blood Cells 0.0 % Sodium Level 141 136-145 mmol/L Potassium Level 4.5 3.5-5.1 mmol/L Chloride Level 104 98-107 mmol/L Carbon Dioxide Level 27 20-31 mmol/L Anion Gap 10 5-15 Blood Urea Nitrogen 16 9-23 mg/dL Creatinine 1.08 0.700-1.30 mg/dL Glomerular Filtration Rate Calc 78 >90 mL/min BUN/Creatinine Ratio 14.8 10.0-20.0 Serum Glucose 139 H 74-106 mg/dL Calcium Level 9.6 8.7-10.4 mg/dL Total Bilirubin 0.6 0.2-1.0 mg/dL Aspartate Amino Transferase (AST) 18 13-40 U/L Alanine Aminotransferase (ALT) 33 7-40 U/L Alkaline Phosphatase 93 46-116 U/L B-Type Natriuretic Peptide 11.81 0-100 pg/mL Total Protein 7.4 5.7-8.2 g/dL Albumin 5.3 H 3.2-4.8 g/dL Current Medications Medications (Trade) Dose Ordered Sig/Carly Route Start Time Stop Time Status Last Admin Prednisone 40 mg ONCE ONCE PO 06/20/24 03:30 06/20/24 03:31 DC 06/20/24 03:23 Albuterol (Ventolin Medneb) 5 mg ONCE ONCE NEB 06/20/24 03:30 06/20/24 03:31 DC 06/20/24 03:27 Ipratropium [place] (Atrovent Medneb) 0.5 mg ONCE ONCE NEB 06/20/24 03:30 06/20/24 03:31 DC 06/20/24 03:27 Time of 1ST Reevaluation: 03:45 Reevaluation 1ST: Unchanged Patient Education/Counseling: Diagnosis, Treatment, Need For Follow Up Family Education/Counseling: No Family Present Departure 1 Departure Time of Disposition: 04:56 Impression: Primary Impression: Bronchospasm Additional Impression: Cough Disposition: 01 HOME / SELF CARE / HOMELESS Condition: Stable e-Prescriptions Prednisone (Prednisone) 20 Mg Tab 20 MG PO BID for 5 Days, #10 MG Prov: CELY BERNAL MD 06/20/24 Azithromycin (Azithromycin) 500 Mg Tab 1 TAB PO DAILY for 7 Days, #7 TAB Prov: CELY BERNAL MD 06/20/24 Albuterol Sulfate (Albuterol Sulfate Hfa) 108 Mcg/Act Aer 108 MCG IN Q6HP PRN, #1 AER 3 Refills Prov: CELY BERNAL MD 06/20/24 Discharged With: Self Critical Care Note Critical Care Time?: No Stability Stability form required: No Heart Score Heart Score: Heart Score Response (Comments) Value History N/A 0 EKG N/A 0 Age N/A 0 Risk Factors N/A 0 Troponin N/A 0 Total 0 I personally scribed for CELY BERNAL MD ([email or web address]) on 06/20/24 at 03:23. Electronically submitted by Cedric Pelaez ([email or web address]). CELY BERNAL MD June 20, 2024 03:23
[2024-06-20] MEDS: ALBUTEROL SULF 2.5 MG/0.5ML(0.5%) NEB SOLN NEB ONE (03:27)
[2024-06-20] MEDS: IPRATROPIUM BROM 0.5 MG/2.5ML INH SOL NEB ONE (03:27)
--- NOTE | 2024-06-20 03:46 | DVH ---
CHEST RADIOGRAPH Indication: SOB Technique: Single frontal view of the chest was obtained COMPARISON: XY CHEST XRAY 1 VIEW on DOS: 04/22/23 FINDINGS: Lines and Tubes: None Lungs: Clear Pleura: No effusion. No pneumothorax. Cardiomediastinal contours: Unremarkable Bones: Unremarkable IMPRESSION: 1. No acute disease.
[2024-06-20 03:55] LABS: Basophils # (auto) 0.1 10 ^3/uL (0-0.2); Basophils % (auto) 0.6 % (0.0-2.0); Eosinophils # (auto) 0.6 10 ^3/uL (0-0.8); Eosinophils % (auto) 4.9 % (0.0-7.0); Hematocrit 44.7 % (41.0-53.0); Hemoglobin 14.9 g/dL (13.5-17.5); Lymphocytes # (auto) 3.6 10 ^3/uL (0.4-5.4); Lymphocytes % (auto) 28.9 % (10.0-50.0); Mean Corpuscular Hemoglobin 30.1 pg (28.0-32.0); Mean Corpuscular Hgb Conc. 33.2 g/dL (32.0-36.0); Mean Corpuscular Volume 90.5 fL (80.0-100.0); Monocytes # (auto) 0.8 10 ^3/uL (0-1.3); Monocytes % (auto) 6.3 % (0.0-12.0); Neutrophils # (auto) 7.4 10 ^3/uL (1.6-8.6); Neutrophils % (auto) 59.3 % (37.0-80.0); Platelet Count (auto) 333 10^3/uL (140-450); Red Blood Cells 4.94 10^6/uL (4.5-5.90); Red Cell Distribution Width 14.1 % (11.8-14.3); White Blood Cell 12.4 10^3/uL (4.4-10.8)
[2024-06-20 04:13] LABS: Alanine Aminotransferase 33 U/L (7-40); Alkaline Phosphatase 93 U/L (46-116); Anion Gap 10 (5-15); Aspartate Aminotransferase 18 U/L (13-40); BUN/Creatinine Ratio 14.8 (10.0-20.0); Blood Urea Nitrogen 16 mg/dL (9-23); Calcium 9.6 mg/dL (8.7-10.4); Carbon Dioxide 27 mmol/L (20-31); Chloride 104 mmol/L (98-107); Potassium 4.5 mmol/L (3.5-5.1); Sodium 141 mmol/L (136-145); Total Protein 7.4 g/dL (5.7-8.2)
[2024-06-20 04:14] LABS: Albumin 5.3 g/dL (3.2-4.8); Bilirubin, Total 0.6 mg/dL (0.2-1.0); Glucose 139 mg/dL (74-106)
[2024-06-20] MEDS ORDERED: PRED20TA2 PO (04:55)
[2024-06-20] MEDS ORDERED: ALBU108A5 IN (04:55)
[2024-06-20] MEDS ORDERED: AZIT500T66 PO (04:55)
[2024-06-20 06:15] VITALS: BP 113/51; PULSE 68; RESP 15; TEMP 98.1; O2SAT 95
--- NOTE | 2024-06-21 09:50 | ECG ---
[facility] Test Date: 2024-06-20 Test Time: 03:18:56 Pat Name: OLIVIA ASHFORD Department: ER Room: Gender: M Head Orthopedic Team Physician: DREW : [id number] Requested By: CELY BERNAL Order Number: [id number] Reading MD: Sam Palacios Measurements Intervals [place] Rate: 72 P: 98 [place]: 207 QRS: 82 QRSD: 112 T: 68 QT: 426 QTc: 467 Interpretive Statements Sinus rhythm Borderline intraventricular conduction delay Electronically Signed On 06-21-2024 13:13:12 PDT by Sam Palacios Please click the below link to view image of tracing.
== END 2024-06-20 06:23 | disposition home or self-care (01) ==
LOC: ER 02:58
DX: J98.01 Acute bronchospasm (principal); I10 Essential (primary) hypertension; E11.9 Type 2 diabetes mellitus without complications; Z98.890 Other specified postprocedural states; Z90.49 Acquired absence of other specified parts of digestive tract; Z87.01 Personal history of pneumonia (recurrent); Z86.73 Personal history of transient ischemic attack (TIA), and cerebral infarction without residual deficits; Z79.02 Long term (current) use of antithrombotics/antiplatelets; Z79.1 Long term (current) use of non-steroidal anti-inflammatories (NSAID); Z79.52 Long term (current) use of systemic steroids; Z79.84 Long term (current) use of oral hypoglycemic drugs
CPT/HCPCS: 36415; 71045; 80053; 82947; 83880; 84484; 85025; 93005; 94640; 99285; J7512

== ENCOUNTER 2024-08-05 11:06 | Emergency (ER) | payer MEDICAID ==
[~2024-08-05] VITALS: Ht 350.5 cm; Wt 85.3 kg
[~2024-08-05 11:06] MED LIST changes: +ALBU108A5 IN; +AZIT500T66 PO; +PRED20TA2 PO
--- NOTE | 2024-08-05 11:47 | ED.PDOC ---
History of Present Illness(SKN HPI Comments 64y M who presents to the ED for chief compliant of rash. Pt states he has been having whole body rash for the past 1x month. Pt states he saw provider 1x month prior and was placed on creams and ointments but states they have not been helping so he came to the ED for further evaluation. Pt has noted diffusely located rash across his body with pt noted whole body pruritics. Pt otherwise denies any associated symptoms. Pt denies any other symptoms at this time. Chief Complaint: Rash Time Seen by MD: 11:30 Primary Care Provider: MG History of Present Illness: Medications, Allergies Allergies: Coded Allergies: NO KNOWN ALLERGIES (Unverified , 04/22/23) Home Meds Active Scripts Prednisone (Prednisone) 20 Mg Tab, 20 MG PO BID for 5 Days, #10 MG Prov:CELY BERNAL MD 06/20/24 Azithromycin (Azithromycin) 500 Mg Tab, 1 TAB PO DAILY for 7 Days, #7 TAB Prov:CELY BERNAL MD 06/20/24 Albuterol Sulfate (Albuterol Sulfate Hfa) 108 Mcg/Act Aer, 108 MCG IN Q6HP PRN, #1 AER 3 Refills Prov:CELY BERNAL MD 06/20/24 Triamcinolone Acetonide (Triamcinolone Acetonide) 0.1 % Oin, 1 APPLIC TOP BID, #80 GRAMS Prov:DANDRE ARZOLA 04/07/24 Methylprednisolone (Medrol Dosepak) 4 Mg David, 4 MG PO UD, #21 TAB UAD Prov:DANDRE ARZOLA 04/07/24 Naproxen (NAPROSYN TABLET) 500 Mg Tb, 500 MG GT BID for 10 Days, #20 TAB Prov:PABLITO CHARLES MD 07/18/23 Insulin Glargine (Lantus) 100 Unit/Ml Inj, 45 UNIT SC HS, #10 INJ Prov:BELLO GUERRERO MD 06/10/23 Clopidogrel Bisulfate (CLOPIDOGREL) 75 Mg Tab, 75 MG PO DAILY for 30 Days, #60 MG Prov:BELLO GUERRERO MD 06/10/23 Empagliflozin (Jardiance) 25 Mg Tab, 25 MG PO DAILY, #60 TAB Prov:BELLO GUERRERO MD 06/10/23 Atorvastatin Calcium (Lipitor) 40 Mg Tab, 1 TAB PO QPM, #90 TAB 1 Refill Prov:BELLO GUERRERO MD 06/10/23 Reported Medications Metformin Hydrochloride (Metformin Hcl) 500 Mg Tab, 1000 MG PO BID for 30 Days, MG 04/23/23 Famotidine (PEPCID TABLET) 20 Mg Tb, 1 TAB PO BID, #60 TAB 5 Refills 04/23/23 Information Source: Patient Mode of Arrival: Ambulatory Past Medical History PAST MEDICAL HISTORY: CVA, DM, HTN Surgical History: Appendectomy, Hernia Repair Family History Family History: Reviewed,noncontributory to illness, Family hx of DM, Family hx of HTN Social History Smoker: Non-Smoker Alcohol: Denies ETOH Use Drugs: Denies Drug Use Lives In: Home Constitutional: denies: chills, diaphoresis, fatigue, fever, malaise, sweats, weakness, others EENTM: denies: blurred vision, double vision, ear bleeding, ear discharge, ear drainage, ear pain, ear ringing, eye pain, eye redness, hearing loss, mouth pain, mouth swelling, nasal discharge, nose bleeding, nose congestion, nose pain, photophobia, tearing, throat pain, throat swelling, voice changes, others Respiratory: denies: cough, hemoptysis, orthopnea, SOB at rest, shortness of breath, SOB with excertion, stridor, wheezing, others Cardiovascular: denies: chest pain, dizzy spells, diaphoresis, Dyspnea on exertion, edema, irregular heart beat, left arm pain, lightheadedness, palpitations, PND, syncope, others Gastrointestinal: denies: abdomen distended, abdominal pain, blood streaked bowels, constipated, diarrhea, dysphagia, difficulty swallowing, hematemesis, melena, nausea, poor appetite, poor fluid intake, rectal bleeding, rectal pain, vomiting, others Genitourinary: denies: burning, dysuria, flank pain, frequency, hematuria, incontinence, penile discharge, penile sore, pain, testicle pain, testicle swelling, urgency, others Neurological: denies: dizziness, fainting, headache, left sided numbness, left sided weakness, numbness, paresthesia, pre-existing deficit, right sided numbness, right sided weakness, seizure, speech problems, tingling, tremors, weakness, others Musculoskeletal: denies: back pain, gout, joint pain, joint swelling, muscle pain, muscle stiffness, neck pain, others Integumetry: denies: bruises, change in color, change in hair/nails, dryness, laceration, lesions, lumps, rash, wounds, others Allergic/Immunocompromised: reports: Hives, Itching; denies: Difficulty Healing, Frequent Infections, others Hematologic/Lymphatic: denies: anemia, blood clots, easy bleeding, easy bruising, swollen glands, others Endocrine: denies: excessive hunger, excessive sweating, excessive thirst, excessive urination, flushing, intolerance to cold, intolerance to heat, unexplained weight gain, unexplained weight loss, others Psychiatric: denies: anxiety, bipolar disorder, depression, hopeless, panic disorder, schizophrenia, sleepless, suicidal, others All Other Systems: Reviewed and Negative Physical Exam General Appearance: Moderate Distress, Normal HEENT: Normal ENT Inspection, Pharynx Normal, TMs Normal Neck: Full Range of Motion, Non-Tender, Normal, Normal Inspection Respiratory: Chest Non-Tender, Lungs Clear, No Accessory Muscle Use, No Respiratory Distress, Normal Breath Sounds Cardiovascular: No Edema, No JVD, No Murmur, No Gallop, Normal Peripheral Pulses, Regular Rate/Rhythm Breast Exam: Deferred Gastrointestinal: No Organomegaly, Non Tender, No Pulsatile Mass, Normal Bowel Sounds, Soft Genitalia: Deferred Pelvic: Deferred Rectal: Deferred Extremities: No calf tenderness, Normal capillary refill, Normal inspection, Normal range of motion, Non-tender, No pedal edema Musculoskeletal : Apperance: Normal Neurologic: Alert, clinical rn manager II-XII nml as Tested, No Motor Deficits, Normal Affect, Normal Mood, No Sensory Deficits Cerebellar Function: Normal Reflexes: Normal Skin: Rash (diffusely located across body) Lymphatic: No Adenopathy Was a procedure done? Was a procedure done?: No Differential Diagnosis (INTG) Differential Diagnosis: Cellulitis, Contact Dermatitis, Drug Reaction, Psoriasis, Scabies, Urticaria X-Ray, Labs, Meds, VS Vital Signs Date Time Temp Pulse Resp B/P (MAP) Pulse Ox O2 Delivery O2 Flow Rate FiO2 08/05/24 13:30 64 16 99/46 (63) 97 08/05/24 12:48 98.7 70 16 92/64 (73) 97 98.7 08/05/24 12:48 57 17 98 Room Air 08/05/24 11:20 98.4 83 16 119/74 (89) 97 98.4 Patient alert. Mentating well. Vitals stable. Answering all questions. Has a rash for many weeks mainly in the extremities. Was given prescription of prednisone. Explained to the patient. Was told to follow up with his primary care physician. Was told to come back if there is any problem. Time of 1ST Reevaluation: 12:00 Reevaluation 1ST: Unchanged Patient Education/Counseling: Diagnosis, Treatment Family Education/Counseling: No Family Present SEPSIS Sepsis Screen Date sepsis recognized/suspect: Aug 05, 2024 Time Sepsis recognized/suspect: 1119 Recent Procedure: No On Antibiotic Therapy: No Respiratory Rate >20: No Heart Rate >90: No Temp<36 C (96.8 F) or >38.3 C: No SBP <90 or MAP <65 mmHG: No New Acute Mental Status Change: No Is the patient on CPAP, BIPAP,: No Vital Signs Date Time Temp Pulse Resp B/P (MAP) Pulse Ox O2 Delivery O2 Flow Rate FiO2 08/05/24 13:30 64 16 99/46 (63) 97 08/05/24 12:48 98.7 70 16 92/64 (73) 97 98.7 08/05/24 12:48 57 17 98 Room Air 08/05/24 11:20 98.4 83 16 119/74 (89) 97 98.4 Departure 1 Departure Time of Disposition: 13:44 Impression: Primary Impression: Eczema Qualified Codes: L30.9 - Dermatitis, unspecified Disposition: 01 HOME / SELF CARE / HOMELESS Condition: Good e-Prescriptions Prednisone (Prednisone) 10 Mg Tab 10 MG PO DAILY for 7 Days, #7 MG Prov: MINAL WILCOX MD 08/05/24 Discharged With: Self Critical Care Note Critical Care Time?: No Stability Stability form required: No Heart Score Heart Score: Heart Score Response (Comments) Value History N/A 0 EKG N/A 0 Age N/A 0 Risk Factors N/A 0 Troponin N/A 0 Total 0 I personally scribed for MINAL WILCOX MD ([email or web address]) on 08/05/24 at 11:47. Electronically submitted by Graham Fang ([email or web address]). MINAL WILCOX MD Aug 05, 2024 11:47
[2024-08-05 12:48] VITALS: TEMP 98.7
[2024-08-05 13:30] VITALS: BP 99/46; PULSE 64; RESP 16; O2SAT 97
[2024-08-05] MEDS ORDERED: PRED10TA PO (13:45)
== END 2024-08-05 14:07 | disposition home or self-care (01) ==
LOC: ER 11:06
DX: L30.9 Dermatitis, unspecified (principal); I10 Essential (primary) hypertension; E11.9 Type 2 diabetes mellitus without complications; Z79.84 Long term (current) use of oral hypoglycemic drugs; Z86.73 Personal history of transient ischemic attack (TIA), and cerebral infarction without residual deficits; Z90.49 Acquired absence of other specified parts of digestive tract; Z98.890 Other specified postprocedural states

== ENCOUNTER 2024-09-18 17:25 | Emergency (ER) | payer MEDICAID ==
[~2024-09-18] VITALS: Ht 175.3 cm; Wt 86.0 kg
[~2024-09-18 17:25] MED LIST changes: +PRED10TA PO
[2024-09-18] MEDS ORDERED: LORA10CA PO (19:02)
[2024-09-18] MEDS ORDERED: PRED20TA2 PO (19:02)
--- NOTE | 2024-09-18 19:03 | ED.PDOC ---
History of Present Illness(SKN HPI Comments 64-year-old male presents to ER with complaints of rash x1 day. Patient reports that he has been experiencing an itchy red rash to bilateral legs x1 day with associated 6/10 sore throat pain x 2 days. Notes that he followed-up with his PCP with regards to his sore throat yesterday and was prescribed a z-pack but notes he never mentioned the rash to his PCP at that time. Denies fever, body aches, chills, cough, shortness of breath, hx shingles, headache or any further symptoms/complaints Chief Complaint: Rash Time Seen by MD: 18:19 Primary Care Provider: MG History of Present Illness: Nurses Notes, Medications, Allergies Allergies: Coded Allergies: NO KNOWN ALLERGIES (Unverified , 04/22/23) Home Meds Active Scripts Loratadine (Claritin) 10 Mg Cap, 10 MG PO DAILY PRN, #30 CAP 0 Refills Prov:ELYSSA BENITEZ 09/18/24 Prednisone (Prednisone) 20 Mg Tab, 20 MG PO BID for 5 Days, #10 TAB 0 Refills Prov:ELYSSA BENITEZ 09/18/24 Prednisone (Prednisone) 10 Mg Tab, 10 MG PO DAILY for 7 Days, #7 MG Prov:MINAL WILCOX MD 08/05/24 Prednisone (Prednisone) 20 Mg Tab, 20 MG PO BID for 5 Days, #10 MG Prov:CELY BERNAL MD 06/20/24 Azithromycin (Azithromycin) 500 Mg Tab, 1 TAB PO DAILY for 7 Days, #7 TAB Prov:CELY BERNAL MD 06/20/24 Albuterol Sulfate (Albuterol Sulfate Hfa) 108 Mcg/Act Aer, 108 MCG IN Q6HP PRN, #1 AER 3 Refills Prov:CELY BERNAL MD 06/20/24 Triamcinolone Acetonide (Triamcinolone Acetonide) 0.1 % Oin, 1 APPLIC TOP BID, #80 GRAMS Prov:DANDRE ARZOLA 04/07/24 Methylprednisolone (Medrol Dosepak) 4 Mg David, 4 MG PO UD, #21 TAB UAD Prov:DANDRE ARZOLA 04/07/24 Naproxen (NAPROSYN TABLET) 500 Mg Tb, 500 MG GT BID for 10 Days, #20 TAB Prov:OBIEKWE,PABLITO R MD 07/18/23 Insulin Glargine (Lantus) 100 Unit/Ml Inj, 45 UNIT SC HS, #10 INJ Prov:BELLO GUERRERO MD 06/10/23 Clopidogrel Bisulfate (CLOPIDOGREL) 75 Mg Tab, 75 MG PO DAILY for 30 Days, #60 MG Prov:BELLO GUERRERO MD 06/10/23 Empagliflozin (Jardiance) 25 Mg Tab, 25 MG PO DAILY, #60 TAB Prov:BELLO GUERRERO MD 06/10/23 Atorvastatin Calcium (Lipitor) 40 Mg Tab, 1 TAB PO QPM, #90 TAB 1 Refill Prov:BELLO GUERRERO MD 06/10/23 Reported Medications Metformin Hydrochloride (Metformin Hcl) 500 Mg Tab, 1000 MG PO BID for 30 Days, MG 04/23/23 Famotidine (PEPCID TABLET) 20 Mg Tb, 1 TAB PO BID, #60 TAB 5 Refills 04/23/23 Information Source: Patient Mode of Arrival: Ambulatory Past Medical History PAST MEDICAL HISTORY: CVA, DM, HTN Past Medical History (Other): ECZEMA Surgical History: Appendectomy, Hernia Repair, Tonsillectomy Family History Family History: Family hx of DM, Family hx of HTN Social History Smoker: Non-Smoker Alcohol: Denies ETOH Use Drugs: Denies Drug Use Lives In: Home Constitutional: denies: chills, diaphoresis, fatigue, fever, malaise, sweats, weakness, others EENTM: reports: others (As stated in HPI) Respiratory: denies: cough, hemoptysis, orthopnea, SOB at rest, shortness of breath, SOB with excertion, stridor, wheezing, others Cardiovascular: denies: chest pain, dizzy spells, diaphoresis, Dyspnea on exertion, edema, irregular heart beat, left arm pain, lightheadedness, palpitations, PND, syncope, others Gastrointestinal: denies: abdomen distended, abdominal pain, blood streaked bowels, constipated, diarrhea, dysphagia, difficulty swallowing, hematemesis, melena, nausea, poor appetite, poor fluid intake, rectal bleeding, rectal pain, vomiting, others Genitourinary: denies: burning, dysuria, flank pain, frequency, hematuria, incontinence, penile discharge, penile sore, pain, testicle pain, testicle swelling, urgency, others Neurological: denies: dizziness, fainting, headache, left sided numbness, left sided weakness, numbness, paresthesia, pre-existing deficit, right sided numbness, right sided weakness, seizure, speech problems, tingling, tremors, weakness, others Musculoskeletal: denies: back pain, gout, joint pain, joint swelling, muscle pain, muscle stiffness, neck pain, others Integumetry: reports: others (As stated in HPI) Allergic/Immunocompromised: reports: others (As stated in HPI) Hematologic/Lymphatic: denies: anemia, blood clots, easy bleeding, easy bruising, swollen glands, others Endocrine: denies: excessive hunger, excessive sweating, excessive thirst, excessive urination, flushing, intolerance to cold, intolerance to heat, unexplained weight gain, unexplained weight loss, others Psychiatric: denies: anxiety, bipolar disorder, depression, hopeless, panic disorder, schizophrenia, sleepless, suicidal, others Physical Exam General Appearance: No Apparent Distress HEENT: PERRL/EOMI, Pharyngeal Erythema (Mild pharyngeal erythema noted bilaterally. Absent tonsils appreciated. Uvula-normal), TMs Normal Neck: Full Range of Motion, Non-Tender, Normal Respiratory: Chest Non-Tender, Lungs Clear, No Accessory Muscle Use, No Respiratory Distress, Normal Breath Sounds Cardiovascular: No Murmur, No Gallop, Normal Peripheral Pulses, Regular Rate/Rhythm Breast Exam: Deferred Gastrointestinal: NOT DONE Genitalia: Deferred Pelvic: Deferred Rectal: Deferred Extremities: Normal capillary refill, Normal range of motion Neurologic: Alert, No Motor Deficits, Normal Affect, Normal Mood, No Sensory Deficits Cerebellar Function: Normal Reflexes: Normal Skin: Dry, Warm, Other (Mild urticaria noted to bilateral thighs. No further skin changes noted) Peripheral Pulses: 2+ Radial (R), 2+ Radial (L), 2+ Brachial (R), 2+ Brachial (L) Lymphatic: No Adenopathy Was a procedure done? Was a procedure done?: No Sedation Sedation?: No Differential Diagnosis (INTG) Differential Diagnosis: Abscess Differential Diagnosis: Cellulitis, Other (URI, insect bite) X-Ray, Labs, Meds, VS Vital Signs Date Time Temp Pulse Resp B/P (MAP) Pulse Ox O2 Delivery O2 Flow Rate FiO2 8/12/25 17:27 97.6 72 16 134/57 96 97.6 Rocephin 1 g IM ordered Solu-Medrol 125 mg IM ordered Patient in no distress during ER visit/prior to discharge Advised to continue Z-David as prescribed Advised to drink plenty of fluids Advised to follow up with PCP in 1-2 days Patient verbalized understanding and agreeable with current plan of care Advised to return to ER immediately if symptoms worsen Time of 1ST Reevaluation: 18:44 Reevaluation 1ST: N/A Patient Education/Counseling: Diagnosis, Treatment, Prognosis, Need For Follow Up Family Education/Counseling: No Family Present SEPSIS Sepsis Screen Date sepsis recognized/suspect: Sep 18, 2024 Time Sepsis recognized/suspect: 1728 Recent Procedure: No On Antibiotic Therapy: No Respiratory Rate >20: No Heart Rate >90: No Temp<36 C (96.8 F) or >38.3 C: No SBP <90 or MAP <65 mmHG: No New Acute Mental Status Change: No Is the patient on CPAP, BIPAP,: No Vital Signs Date Time Temp Pulse Resp B/P (MAP) Pulse Ox O2 Delivery O2 Flow Rate FiO2 09/18/24 17:27 97.6 72 16 134/57 96 97.6 Departure 1 Departure Time of Disposition: 19:00 Impression: Primary Impression: Allergic contact dermatitis Qualified Codes: L23.9 - Allergic contact dermatitis, unspecified cause Additional Impression: Pharyngitis Qualified Codes: J02.9 - Acute pharyngitis, unspecified Disposition: HOME / SELF CARE / HOMELESS Condition: Stable e-Prescriptions Loratadine (Claritin) 10 Mg Cap 10 MG PO DAILY PRN, #30 CAP 0 Refills Prov: ELYSSA BENITEZ 09/18/24 Prednisone (Prednisone) 20 Mg Tab 20 MG PO BID for 5 Days, #10 TAB 0 Refills Prov: ELYSSA BENITEZ 09/18/24 Discharged With: Self Critical Care Note Critical Care Time?: No Stability Stability form required: No Heart Score Heart Score: Heart Score Response (Comments) Value History N/A 0 EKG N/A 0 Age N/A 0 Risk Factors N/A 0 Troponin N/A 0 Total 0 ELYSSA BENITEZ Sep 18, 2024 19:03
[2024-09-18] MEDS: methylPREDNISolone SOD SUCC 125 MG/2 ML VL IM ONE (19:05)
[2024-09-18] MEDS: cefTRIAXone SOD 1,000 MG VL IM ONE (19:07)
[2024-09-18 19:57] VITALS: BP 121/70; PULSE 64; RESP 16; TEMP 98.2; O2SAT 96
== END 2024-09-18 20:35 | disposition home or self-care (01) ==
LOC: ER 17:25
DX: L23.9 Allergic contact dermatitis, unspecified cause (principal); J02.9 Acute pharyngitis, unspecified; E11.9 Type 2 diabetes mellitus without complications; I10 Essential (primary) hypertension; Z86.73 Personal history of transient ischemic attack (TIA), and cerebral infarction without residual deficits; Z90.49 Acquired absence of other specified parts of digestive tract; Z98.890 Other specified postprocedural states
CPT/HCPCS: 96372; 99284; J0696; J2919

== ENCOUNTER 2024-10-20 14:13 | Inpatient (IN) | payer MEDICAID ==
[~2024-10-20] VITALS: Ht 172.7 cm; Wt 79.9 kg
[~2024-10-20 14:13] MED LIST changes: +LORA10CA PO
--- NOTE | 2024-10-20 14:34 | ED.PDOC ---
HPI (NEURO) HPI Comments 64 y.o male presents to the ED for a chief complaint of dizziness associated with blurred vision and unsteady gait that started this morning. Patient was ambulatory upon ED arrival with no complaint of numbness or tingling sensation. He mentions hx of CVA with right sided deficits and denies any worsening numbness to right side. No recent head injury, chest pain, SOB, nausea, vomiting noted. Chief Complaint: Dizziness Time Seen by MD: 14:19 Primary Care Provider: MG Sterling Notes: Nurses Notes, Medications, Allergies Information Source: Patient Mode of Arrival: Ambulatory Severity: Moderate Timing: Hours Duration: Since onset Onset: At rest Circumstances: Spontaneous Symptoms: Imbalance, Change of vision History of: CVA, DM, Hypertension Modifying factors: Nothing Associated Signs and Symptoms: Blurred Vision Past Medical History PAST MEDICAL HISTORY: CVA, DM, HTN Surgical History: Appendectomy, Hernia Repair, Tonsillectomy Family History Family History: Family hx of DM, Family hx of HTN Social History Smoker: Non-Smoker Alcohol: Denies ETOH Use Drugs: Denies Drug Use Lives In: Home Constitutional: denies: chills, diaphoresis, fatigue, fever, malaise, sweats, weakness, others EENTM: reports: blurred vision; denies: double vision, ear bleeding, ear discharge, ear drainage, ear pain, ear ringing, eye pain, eye redness, hearing loss, mouth pain, mouth swelling, nasal discharge, nose bleeding, nose congestion, nose pain, photophobia, tearing, throat pain, throat swelling, voice changes, others Respiratory: denies: cough, hemoptysis, orthopnea, SOB at rest, shortness of breath, SOB with excertion, stridor, wheezing, others Cardiovascular: denies: chest pain, dizzy spells, diaphoresis, Dyspnea on exertion, edema, irregular heart beat, left arm pain, lightheadedness, palpitations, PND, syncope, others Gastrointestinal: denies: abdomen distended, abdominal pain, blood streaked bowels, constipated, diarrhea, dysphagia, difficulty swallowing, hematemesis, melena, nausea, poor appetite, poor fluid intake, rectal bleeding, rectal pain, vomiting, others Genitourinary: denies: burning, dysuria, flank pain, frequency, hematuria, incontinence, penile discharge, penile sore, pain, testicle pain, testicle swelling, urgency, others Neurological: reports: dizziness; denies: fainting, headache, left sided numbness, left sided weakness, numbness, paresthesia, pre-existing deficit, right sided numbness, right sided weakness, seizure, speech problems, tingling, tremors, weakness, others Musculoskeletal: denies: back pain, gout, joint pain, joint swelling, muscle pain, muscle stiffness, neck pain, others Integumetry: denies: bruises, change in color, change in hair/nails, dryness, laceration, lesions, lumps, rash, wounds, others Allergic/Immunocompromised: denies: Difficulty Healing, Frequent Infections, Hives, Itching, others Hematologic/Lymphatic: denies: anemia, blood clots, easy bleeding, easy bruising, swollen glands, others Endocrine: denies: excessive hunger, excessive sweating, excessive thirst, excessive urination, flushing, intolerance to cold, intolerance to heat, unexplained weight gain, unexplained weight loss, others Psychiatric: denies: anxiety, bipolar disorder, depression, hopeless, panic disorder, schizophrenia, sleepless, suicidal, others All Other Systems: Reviewed and Negative Physical Exam General Appearance: Moderate Distress HEENT: Normal ENT Inspection, Pharynx Normal, TMs Normal Neck: Full Range of Motion, Non-Tender, Normal, Normal Inspection Respiratory: Chest Non-Tender, Lungs Clear, No Accessory Muscle Use, No Respiratory Distress, Normal Breath Sounds Cardiovascular: No Edema, No JVD, No Murmur, No Gallop, Normal Peripheral P ulses, Regular Rate/Rhythm Breast Exam: Deferred Gastrointestinal: No Organomegaly, Non Tender, No Pulsatile Mass, Normal Bowel Sounds, Soft Genitalia: Deferred Pelvic: Deferred Rectal: Deferred Extremities: No calf tenderness, Normal capillary refill, Normal inspection, Normal range of motion, Non-tender, No pedal edema Musculoskeletal : Apperance: Normal Neurologic: Alert, commercial drone software developer II-XII nml as Tested, No Motor Deficits, Normal Affect, Normal Mood, No Sensory Deficits Cerebellar Function: NOT DONE Reflexes: NOT DONE Skin: Dry, Normal Color, Warm Peripheral Pulses: 3+ Radial (R), 3+ Radial (L) Lymphatic: No Adenopathy Was a procedure done? Was a procedure done?: No Differential Diagnosis (SZ) Seizure: Psychogenic Seizure, Closed Head Injury, CVA/TIA CVA: CVA, Electrolyte Imbalance, TIA X-Ray, Labs, Meds, VS Vital Signs Date Time Temp Pulse Resp B/P (MAP) Pulse Ox O2 Delivery O2 Flow Rate FiO2 10/20/24 15:00 69 15 94 Room Air* 0 21 10/20/24 15:00 97.9 69 15 120/56 (77) 94 97.9 10/20/24 14:21 78 10/20/24 14:18 98.2 79 18 146/72 97 98.2 Lab Test 10/20/24 14:27 10/20/24 14:20 Range/Units White Blood Count 8.9 4.4-10.8 10^3/uL Red Blood Count 4.88 4.5-5.90 10^6/uL Hemoglobin 15.2 13.5-17.5 g/dL Hematocrit 44.7 41.0-53.0 % Mean Corpuscular Volume 91.6 80.0-100.0 fL Mean Corpuscular Hemoglobin 31.0 28.0-32.0 pg Mean Corpuscular Hemoglobin Concent 33.9 32.0-36.0 g/dL Red Cell Distribution Width 14.1 11.8-14.3 % Platelet Count 327 140-450 10^3/uL Mean Platelet Volume 8.9 6.9-10.8 fL Neutrophils (%) (Auto) 69.9 37.0-80.0 % Lymphocytes (%) (Auto) 22.3 10.0-50.0 % Monocytes (%) (Auto) 6.3 0.0-12.0 % Eosinophils (%) (Auto) 0.9 0.0-7.0 % Basophils (%) (Auto) 0.6 0.0-2.0 % Neutrophils # (Auto) 6.2 1.6-8.6 10 ^3/uL Lymphocytes # (Auto) 2.0 0.4-5.4 10 ^3/uL Monocytes # (Auto) 0.6 0-1.3 10 ^3/uL Eosinophils # (Auto) 0.1 0-0.8 10 ^3/uL Basophils # (Auto) 0.1 0-0.2 10 ^3/uL Nucleated Red Blood Cells 0.1 % Sodium Level 141 136-145 mmol/L Potassium Level 4.6 3.5-5.1 mmol/L Chloride Level 104 98-107 mmol/L Carbon Dioxide Level 23 20-31 mmol/L Anion Gap 14 5-15 Blood Urea Nitrogen 20 9-23 mg/dL Creatinine 1.59 H 0.700-1.30 mg/dL Glomerular Filtration Rate Calc 49 >90 mL/min BUN/Creatinine Ratio 12.6 10.0-20.0 Serum Glucose 219 H 74-106 mg/dL Calcium Level 9.9 8.7-10.4 mg/dL Troponin I High Sensitivity 12 </=54 ng/L POC Glucose 204 H 70-106 mg/dl Patient alert. History of stroke. He does have good mobility. Vitals stable. Blurring of vision. CT of the head reviewed does not show any acute changes. He will need MRI. Blood sugar elevated. Establish intravenous access. Was given fluids. Explained to the patient. Continue monitoring. Time of 1ST Reevaluation: 14:29 Reevaluation 1ST: Unchanged Patient Education/Counseling: Diagnosis, Treatment, Prognosis Family Education/Counseling: No Family Present Departure 1 Departure Time of Disposition: 15:49 Impression: Primary Impression: TIA (transient ischemic attack) Disposition: 09 ADMITTED INPATIENT Admit to: Med Surg Condition: Guarded Critical Care Note Critical Care Time?: No Stability Stability form required: No I personally scribed for MINAL WICLOX MD ([email or web address]) on 10/20/24 at 14:34. Electronically submitted by Lucy Song ([facility]). MINAL WILCOX MD Oct 20, 2024 14:34
[2024-10-20 15:00] VITALS: PULSE 69; RESP 15; O2SAT 94
[2024-10-20 15:52] LABS: Hematocrit 44.7 % (41.0-53.0); Hemoglobin 15.2 g/dL (13.5-17.5); Mean Corpuscular Hemoglobin 31.0 pg (28.0-32.0); Mean Corpuscular Volume 91.6 fL (80.0-100.0); Nucleated Red Blood Cells % 0.1 %
[2024-10-20 15:57] LABS: Chloride 104 mmol/L (98-107); Potassium 4.6 mmol/L (3.5-5.1); Sodium 141 mmol/L (136-145)
[2024-10-20 15:58] LABS: Anion Gap 14 (5-15); Carbon Dioxide 23 mmol/L (20-31)
[2024-10-20 15:59] LABS: Calcium 9.9 mg/dL (8.7-10.4)
[2024-10-20 16:03] LABS: BUN/Creatinine Ratio 12.6 (10.0-20.0); Blood Urea Nitrogen 20 mg/dL (9-23)
--- NOTE | 2024-10-20 16:06 | DVH ---
EXAM: CT HEAD WITHOUT CONTRAST INDICATION: cva TECHNIQUE: CT of the head without intravenous contrast. Radiation Dose : 1. Head: CT Dose: CTDI volume is 55.09 mGy. Dose-length product is 993.42 mGy*cm The dose indicators for CT are the volume Computed Tomography (CT) Dose Index (CTDIvol) and the Dose Length Product (DLP), and are measured in units of mGy and mGy-cm, respectively. These indicators are not patient dose, but values generated from the CT scanner acquisition factors. The report includes radiation exposure data for exposures received during this examination. COMPARISON: CT BRAIN/HEAD WO on DOS: 09/07/24, CT BRAIN on DOS: 08/25/24, CT BRAIN on DOS: 12/03/23, CT ANGIO HEAD on DOS: 08/21/23, CT BRAIN on DOS: 08/21/23 FINDINGS: There is no evidence of acute intracranial hemorrhage, extra-axial collection, mass effect, midline s hift, herniation or hydrocephalus. The ventricles, sulci and cisterns are age appropriate. The dozier-white differentiation is intact. Patchy periventricular and subcortical white matter hypoattenuation is nonspecific but may be related to small vessel ischemic disease. The visualized paranasal sinuses and mastoid air cells are clear. The surrounding soft tissues and osseous structures are unremarkable. IMPRESSION: No acute intracranial abnormality. Radiation optimization: All CT scans at this facility use at least one of these dose optimization dae hniques: automated exposure control mA and/or kV adjustment per patient size (includes targeted exam s where dose is matched to clinical indication) or iterative reconstruction.
[2024-10-20 16:07] LABS: Glucose 219 mg/dL (74-106)
--- NOTE | 2024-10-20 16:07 | DVH ---
CHEST RADIOGRAPH Indication: sob Technique: Single frontal view of the chest was obtained COMPARISON: XY CHEST PORTABLE on DOS: 06/20/24, XR CHEST 2 VIEW on DOS: 06/14/24, XR CHEST 1 VIEW on DOS : 08/21/23, CR CHEST 2 VIEW on DOS: 08/19/23, XR CHEST 2 VIEWS on DOS: 08/06/23 FINDINGS: Lines and Tubes: None Lungs: Clear Pleura: No effusion. No pneumothorax. Cardiomediastinal contours: Unremarkable Bones: Unremarkable IMPRESSION: No acute disease.
[2024-10-20 18:17] LABS: Urine Protein, UAD Negative (Negative)
[2024-10-20] MEDS ORDERED: DEXTROSE (50%) 50ML SYRG IV PRN (20:15)
[2024-10-20] MEDS ORDERED: HYDROcodone-ACET 5/325MG TAB PO PRN (20:15)
[2024-10-20] MEDS ORDERED: ONDANSETRON HCL 4 MG/2 ML VIAL IV PRN (20:15)
[2024-10-20] MEDS ORDERED: DOCUSATE SOD 100 MG CAP PO PRN (20:15)
[2024-10-20] MEDS ORDERED: NITROGLYCERIN 0.4 MG SL TAB SL PRN (21:45)
[2024-10-20] MEDS ORDERED: MORPHINE SULFATE INJ 2 MG/ml SYRG IV PRN (21:45)
--- NOTE | 2024-10-20 21:47 | DVHHP2 ---
History of Present Illness Reason for Visit: TIA (transient ischemic attack) History of Present Illness The patient is a 64-year-old male with past medical history of CVA with right- sided deficit, DM, hyperlipidemia, and hypertension who presented to [facility] ED with complaint of dizziness. The patient reports he has been experiencing dizziness associated with blurred vision and unsteady gait that started this morning. Patient was seen and evaluated in the ED, laboratory data shows WBC 8.9, platelets 327, sodium 141, potassium 4.6, BUN 20, creatinine 1.59, glucose 209, calcium 9.9, troponin 12, blood pressure 147/66, heart rate 66, temperature 98.0 F, O2 saturation 96% on room air. Head CT showed no acute intracranial abnormality. Please see medication orders section in the computer. On my assessment, patient denied chest pain, no headache, no dizziness at this moment, no headache, no numbness or tingling sensation, no diaphoresis, no shortness of breaths, no abdominal pain, no nausea, no vomiting, no fever, no chills. Patient was admitted for further evaluation and medical management. Past Medical History CVA, DM, HTN, HLD Past Surgical History Appendectomy, Hernia Repair, Tonsillectomy Family History Reviewed, noncontributory to the management of this case. Past Social History The patient lives at home, denies smoking, alcohol or illicit drugs abuse. Review of Systems Constitutional: No: Fever, Chills, Sweats, Weakness, Malaise, Other Eyes: Other (Blurred vision); No: Pain, Vision change, Conjunctivae inflammation, Eyelid inflammation, Redness ENT: No: Ear pain, Ear discharge, Nose pain, Nose discharge, Nose congestion, Mouth pain, Mouth swelling, Throat pain, Throat swelling, Other Respiratory: No: Cough, Dry, Shortness of breath, SOB with excertion, Wheezing, Hemoptysis, Pleuritic Pain, Sputum, Wheezing, Other Cardiovascular: No: Chest Pain, Palpitations, Orthopnea, Paroxysmal Noc. Dyspnea, Edema, Lt Headedness, Other Gastrointestinal: No: Nausea, Vomiting, Abdominal Pain, Diarrhea, Constipation, Melena, Hematochezia, Other Genitourinary: No Dysuria, No Frequency, No Incontinence, No Hematuria, No Retention, No Other Musculoskeletal: No: other, neck pain, shoulder pain, arm pain, back pain, hand pain, leg pain, foot pain Skin: No: Rash, Lesions, Jaundice, Bruising, Other Neurological: Other (Dizziness); No: Weakness, Numbness, Incoordination, Change in speech, Confusion, Seizures Allergies: Coded Allergies: NO KNOWN ALLERGIES (Unverified , 04/22/23) Medications Current Medications Medications Dose Ordered Sig/Carly Route Start Time Stop Time Status Last Admin Dose Admin Atorvastatin Calcium 40 mg HS PO 10/20/24 22:00 Clopidogrel Bisulfate 75 mg DAILY PO 10/21/24 10:00 Famotidine 20 mg DAILY IV 10/21/24 10:00 Hydralazine HCl 10 mg Q6HP PRN IV 10/20/24 20:15 Diagnostic Test (Pha) 1 strip IQ4HR 10/21/24 00:00 Insulin Human Regular IQ4HR SC 10/21/24 00:00 Dextrose 50 ml UD PRN IV 10/20/24 20:15 Sodium Chloride 10 ml Q8HR IV 10/20/24 22:00 Acetaminophen/ Hydrocodone Bitart 1 tab Q4HP PRN PO 10/20/24 20:15 Ondansetron HCl 4 mg Q4HP PRN IV 10/20/24 20:15 Docusate Sodium 100 mg BIDPRN PRN PO 10/20/24 20:15 Acetaminophen 650 mg Q6HP PRN PO 10/20/24 20:15 Exam Vital Signs Vital Signs Date Time Temp Pulse Resp B/P (MAP) Pulse Ox O2 Delivery O2 Flow Rate FiO2 10/20/24 19:30 98.0 66 17 147/66 (93) 96 98.0 10/20/24 15:00 Room Air* 0 21 General Appearance: Alert, Oriented X3, Cooperative, No acute distress HEENT: Atraumatic, PERRLA, EOMI, Mucous membr. moist/pink Respiratory: Normal air movement Cardiovascular: Regular rate, Normal S1, Normal S2, No murmurs Abdominal: Normal bowel sounds, Soft, No tenderness, No hepatospenomegaly, No masses Extremities: No clubbing, No cyanosis, No edema, Normal pulses, No tenderness/swelling Skin: No rashes, No significant lesion Neuro: Normal speech, Normal tone, Sensation intact, Cranial nerves 3-12 NL, Reflexes 2+, Other (Generalized weakness) Psych/Mental Status: Mental status NL, Mood NL Labs/Xrays Labs Test 10/20/24 17:00 10/20/24 14:27 10/20/24 14:20 Range/Units Urine Color Yellow Yellow Urine Clarity Clear Clear Urine pH 5.0 5.0-9.0 Urine Specific [place] 1.034 1.001-1.035 Urine Protein Negative Negative Urine Ketones Trace Negative Urine Blood Negative Negative /uL Urine Nitrite Negative Negative Urine Bilirubin Negative Negative Urine Urobilinogen Normal Negative mg/dL Urine Leukocyte Esterase Negative Negative /uL Urine RBC <1 0 - 3 /hpf Urine Microscopic WBC 2 0-3 /HPF Urine Squamous Epithelial Cells None seen <5 /hpf Urine Bacteria None seen None Seen /hpf Urine Glucose 4+ H Normal mg/dL White Blood Count 8.9 4.4-10.8 10^3/uL Red Blood Count 4.88 4.5-5.90 10^6/uL Hemoglobin 15.2 13.5-17.5 g/dL Hematocrit 44.7 41.0-53.0 % Mean Corpuscular Volume 91.6 80.0-100.0 fL Mean Corpuscular Hemoglobin 31.0 28.0-32.0 pg Mean Corpuscular Hemoglobin Concent 33.9 32.0-36.0 g/dL Red Cell Distribution Width 14.1 11.8-14.3 % Platelet Count 327 140-450 10^3/uL Mean Platelet Volume 8.9 6.9-10.8 fL Neutrophils (%) (Auto) 69.9 37.0-80.0 % Lymphocytes (%) (Auto) 22.3 10.0-50.0 % Monocytes (%) (Auto) 6.3 0.0-12.0 % Eosinophils (%) (Auto) 0.9 0.0-7.0 % Basophils (%) (Auto) 0.6 0.0-2.0 % Neutrophils # (Auto) 6.2 1.6-8.6 10 ^3/uL Lymphocytes # (Auto) 2.0 0.4-5.4 10 ^3/uL Monocytes # (Auto) 0.6 0-1.3 10 ^3/uL Eosinophils # (Auto) 0.1 0-0.8 10 ^3/uL Basophils # (Auto) 0.1 0-0.2 10 ^3/uL Nucleated Red Blood Cells 0.1 % Sodium Level 141 136-145 mmol/L Potassium Level 4.6 3.5-5.1 mmol/L Chloride Level 104 98-107 mmol/L Carbon Dioxide Level 23 20-31 mmol/L Anion Gap 14 5-15 Blood Urea Nitrogen 20 9-23 mg/dL Creatinine 1.59 H 0.700-1.30 mg/dL Glomerular Filtration Rate Calc 49 >90 mL/min BUN/Creatinine Ratio 12.6 10.0-20.0 Serum Glucose 219 H 74-106 mg/dL Calcium Level 9.9 8.7-10.4 mg/dL Troponin I High Sensitivity 12 </=54 ng/L POC Glucose 204 H 70-106 mg/dl PATIENT: OLIVIA ASHFORD ACCT: [id number] UNIT: [id number] : 1960 LOC: ER ROOM / BED: / AGE / SEX: 64 / M ADM STATUS: REG ER SERVICE [id number] ORDERING PHYSICIAN: MINAL WILCOX MD PROCEDURE(s): HWOCT - HEAD WITHOUT CONTRAST REASON: cva ORDER NUMBER(s): [id number], ACCESSION NUMBER(s): [id number] EXAM: CT HEAD WITHOUT CONTRAST INDICATION: cva TECHNIQUE: CT of the head without intravenous contrast. Radiation Dose: 1. Head: CT Dose: CTDI volume is 55.09 mGy. Dose-length product is 993.42 mGy*cm The dose indicators for CT are the volume Computed Tomography (CT) Dose Index (CTDIvol) and the Dose Length Product (DLP), and are measured in units of mGy and mGy-cm, respectively. These indicators are not patient dose, but values generated from the CT scanner acquisition factors. The report includes radiation exposure data for exposures received during this examination. COMPARISON: CT BRAIN/HEAD WO on DOS: 09/07/24, CT BRAIN on DOS: 08/25/24, CT BRAIN on DOS: 12/03/23, CT ANGIO HEAD on DOS: 08/21/23, CT BRAIN on DOS: 08/21/23 FINDINGS: There is no evidence of acute intracranial hemorrhage, extra-axial collection, mass effect, midline shift, herniation or hydrocephalus. The ventricles, sulci and cisterns are age appropriate. The dozier-white differentiation is intact. Patchy periventricular and subcortical white matter hypoattenuation is nonspecific but may be related to small vessel ischemic disease. The visualized paranasal sinuses and mastoid air cells are clear. The surrounding soft tissues and osseous structures are unremarkable. IMPRESSION: No acute intracranial abnormality. ORDERING PHYSICIAN: MINAL WILCOX MD PROCEDURE(s): CXRP - CHEST PORTABLE REASON: sob ORDER NUMBER(s): [id number], ACCESSION NUMBER(s): [id number] CHEST RADIOGRAPH Indication: sob Technique: Single frontal view of the chest was obtained COMPARISON: XY CHEST PORTABLE on DOS: 06/20/24, XR CHEST 2 VIEW on DOS: 06/14/24, XR CHEST 1 VIEW on DOS: 08/21/23, CR CHEST 2 VIEW on DOS: 08/19/23, XR CHEST 2 VIEWS on DOS: 08/06/23 FINDINGS: Lines and Tubes: None Lungs: Clear Pleura: No effusion. No pneumothorax. Cardiomediastinal contours: Unremarkable Bones: Unremarkable IMPRESSION: No acute disease. SEPSIS Sepsis Screen Date sepsis recognized/suspect: Oct 20, 2024 Time Sepsis recognized/suspect: 0 Recent Procedure: No On Antibiotic Therapy: No Respiratory Rate >20: No Heart Rate >90: No Temp<36 C (96.8 F) or >38.3 C: No SBP <90 or MAP <65 mmHG: No New Acute Mental Status Change: No Is the patient on CPAP, BIPAP,: No Physician Orders Electrocardigram (10/20/24 14:27) Head Without Contrast (10/20/24 15:33) Chest Portable (10/20/24 15:33) Atorvastatin (Lipitor) (10/20/24 22:00) Clopidogrel Bisulfate (Plavix) (10/21/24 10:00) Famotidine Injection (Pepcid Injection) (10/21/24 10:00) Hydralazine Injection (Apresoline Inject (10/20/24 20:15) Consistent Carb(Ccho)Diabetes (10/21/24 Breakfast) Glucose Blood (Accu-Chek Comfort Curve T (10/21/24 00:00) Insulin R (Human) (Insulin R) (10/21/24 00:00) Dextrose 50% Syringe (10/20/24 20:15) Allergies (10/20/24 20:07) Code Status (10/20/24 20:07) Sodium Chloride Lock (Saline Lock Ns) (10/20/24 22:00) Oxygen Per Hour (10/20/24 20:07) Hydrocodone-Acet 5/325mg Tab ([place] 5/32 (10/20/24 20:15) Ondansetron Hcl (Zofran) (10/20/24 20:15) Docusate Sodium Capsule (Colace Capsule) (10/20/24 20:15) Complete Blood Count (10/21/24 04:00) Comprehensive Metabolic Panel (10/21/24 04:00) Condition: Serious (10/20/24 20:07) Acetaminophen Tablet (Tylenol Tablet) (10/20/24 20:15) Bedrest With Bathroom Privileg (10/20/24 20:07) Maintain Bed Rest (10/20/24 20:07) Sequential Compression Device (10/20/24 ) Vital Signs Date Time Temp Pulse Resp B/P (MAP) Pulse Ox O2 Delivery O2 Flow Rate FiO2 10/20/24 19:30 98.0 66 17 147/66 (93) 96 98.0 10/20/24 18:00 63 14 120/60 (80) 96 10/20/24 16:30 60 15 98/50 (66) 95 10/20/24 15:00 69 15 94 Room Air* 0 21 10/20/24 15:00 97.9 69 15 120/56 (77) 94 97.9 10/20/24 14:21 78 10/20/24 14:18 98.2 79 18 146/72 97 98.2 Laboratory Tests Test 10/20/24 14:27 White Blood Count 8.9 10^3/uL (4.4-10.8) Assessment/Plan Assessment/Plan TIA (transient ischemic attack) Dizziness Generalized weakness Diabetes mellitus with hyperglycemia Plan 1. Admit to telemetry unit 2. Breathing treatment 3. Pain control management 4. Management of fluids and electrolytes 5. Consultation for hospitalist 6. Diagnostic tests chest x-ray 7. DVT prophylaxis-on aspirin 8. Repeat labs CBC, CMP in a.m. 9. Continue with current medical management 10. Treatment plan discussed with patient and RN. Patient verbalized understanding. Plan discussed with: Patient, Other (RN) My Orders Orders - KETURAH HER DNP Procedure Category Date Status Time Atorvastatin (Lipitor) PHA 10/20/24 In Process 22:00 Clopidogrel Bisulfate PHA 10/21/24 In Process (Plavix) 10:00 Famotidine Injection PHA 10/21/24 In Process (Pepcid Injection) 10:00 Hydralazine Injection PHA 10/20/24 In Process (Apresoline Inject 20:15 Consistent DIET 10/21/24 Transmitted Carb(Ccho)Diabetes Breakfast Glucose Blood PHA 10/21/24 In Process (Accu-Chek Comfort 00:00 Insulin R (Human) PHA 10/21/24 In Process (Insulin R) 00:00 Dextrose 50% Syringe PHA 10/20/24 In Process 20:15 Allergies [place] 10/20/24 In Process 20:07 Code Status CODE 10/20/24 Transmitted 20:07 Sodium Chloride Lock PHA 10/20/24 In Process (Saline Lock Ns) 22:00 Oxygen Per Hour RT 10/20/24 Transmitted 20:07 Hydrocodone-Acet PHA 10/20/24 In Process 5/325mg Tab ([place] 20:15 Ondansetron Hcl PHA 10/20/24 In Process (Zofran) 20:15 Docusate Sodium PHA 10/20/24 In Process Capsule (Colace 20:15 Complete Blood Count LAB 10/21/24 Verified 04:00 Comprehensive LAB 10/21/24 Verified Metabolic Panel 04:00 Condition: Serious [place] 10/20/24 In Process 20:07 Acetaminophen Tablet PHA 10/20/24 In Process (Tylenol Tablet) 20:15 Bedrest With Bathroom [place] 10/20/24 In Process Privileg 20:07 Maintain Bed Rest [place] 10/20/24 In Process 20:07 Sequential [place] 10/20/24 In Process Compression Device Problem List: (1) TIA (transient ischemic attack) (2) Dizziness (3) Generalized weakness (4) Diabetes mellitus with hyperglycemia Date of Service: Oct 20, 2024 Billing Provider: KETURAH HER DNP Common Visit Codes: [id number] INP/OBS CARE (HIGH) KETURAH HER DNP Oct 20, 2024 21:46
[2024-10-20] MEDS: ACETAMINOPHEN 325 MG TAB PO PRN (22:17)
[2024-10-20] MEDS: ATORVASTATIN 20 MG TAB PO SCH (22:17)
[2024-10-20] MEDS: SODIUM CHLOR 0.9% PF (SALINE LOCK) 10ML VIAL/SYR IV SCH (22:20)
[2024-10-21] VITALS (8 sets, daily range): BP systolic 104–144; BP diastolic 63–81; PULSE 55–66; RESP 16–20; TEMP 97.6–98.5; O2SAT 94–98
[2024-10-21] MEDS: ACCU-CHEK COMFORT CURVE STRIP VI SCH (00:27)
[2024-10-21] MEDS: InsuLIN REG 1unit/0.01ml Soln (100units/ml) SC SCH (00:32)
[2024-10-21 07:31] LABS: Hematocrit 41.1 % (41.0-53.0); Hemoglobin 14.3 g/dL (13.5-17.5); Mean Corpuscular Hemoglobin 31.6 pg (28.0-32.0); Mean Corpuscular Volume 91.1 fL (80.0-100.0); Nucleated Red Blood Cells % 0.2 %
[2024-10-21 07:39] LABS: Alanine Aminotransferase 35 U/L (7-40); Albumin 4.7 g/dL (3.2-4.8); Alkaline Phosphatase 76 U/L (46-116); Anion Gap 13 (5-15); BUN/Creatinine Ratio 17.8 (10.0-20.0); Blood Urea Nitrogen 21 mg/dL (9-23); Calcium 9.6 mg/dL (8.7-10.4); Carbon Dioxide 26 mmol/L (20-31); Chloride 105 mmol/L (98-107); Glucose 85 mg/dL (74-106); Potassium 4.0 mmol/L (3.5-5.1); Sodium 144 mmol/L (136-145); Total Protein 6.9 g/dL (5.7-8.2)
[2024-10-21 07:40] LABS: Bilirubin, Total 0.6 mg/dL (0.2-1.0)
[2024-10-21] MEDS: ATORVASTATIN 20 MG TAB ONE ×3 (08:04→15:01)
[2024-10-21] MEDS: ACETAMINOPHEN 325 MG TAB PO ONE (08:05)
--- NOTE | 2024-10-21 08:50 | DVH ---
CLINICAL INFORMATION: Possible stroke. TECHNIQUE: Axial imaging was obtained through the brain without contrast. Coronal and sagittal reform atted images were obtained, reviewed, and stored. Images were reviewed in brain and bone windows. Al l CT scans at this medical facility are performed using dose modulation techniques as appropriate to a performed exam including the following: Automated exposure control was utilized; adjustment of the MA and/or KV according to patient size; and use of iterative reconstruction technique. CTDIvol = 56.7 7 mGy DLP = 1022.4 mGy-cm COMPARISON: CT HEAD WITHOUT CONTRAST on DOS: 10/20/24, CT BRAIN/HEAD WO on DOS: 09/07/24, CT BRAIN on DO S: 08/25/24 FINDINGS: No acute intracranial hemorrhage. There is a new area of hypoattenuation in the right occip ital lobe, also involving portions of the posterior right temporal lobe measuring up to 5.7 cm in gre atest dimension, likely evolving changes from acute infarct. Chronic lacunar infarct in the left basa l ganglia appears unchanged. Chronic lacunar infarct in the left thalamus is unchanged. Subtle chroni c lacunar infarct in the right thalamus is unchanged. The ventricles and sulci are within normal limi ts in size for age. Basal cisterns are patent. The calvarium is unremarkable. Mild mucosal thickenin g of the paranasal sinuses. Mastoid air cells are clear. IMPRESSION: 1. Findings consistent with acute right occipital lobe infarct. 2. No acute intracranial hemorrhage. 3. Additional nonacute findings as described above.
[2024-10-21] MEDS ORDERED: ATORVASTATIN 20 MG TAB PO ONE (09:15)
--- NOTE | 2024-10-21 09:37 | BSKYNEURO ---
[facility] Note # Demographics Consult Type: Acute Stroke Level 1 (0-4.5 hrs) Patient Location: Inpatient First Name: OLIVIA ROGERS Last Name: MAKEDA Date of : 1960 Age: 64 Gender: Male Facility: [facility] Time of Initial Page (): 10/21/2024 09:04 First Contact with Site (): 10/21/2024 09:05 # HPI History: 64-year-old man with a previous history of stroke admitted with some vision changes. initial non contrast CT head was negative. this morning patient symptoms seem to worsen so in-house stroke alert was called. # Scores Time of exam and NIHSS (): 10/21/2024 09:13 Level of Consciousness 1a: [0] = Alert; keenly responsive LOC Questions 1b: [0] = Answers both questions correctly LOC Commands 1c: [0] = Performs both tasks correctly Best Gaze 2: [0] = Normal Visual 3: [1] = Partial hemianopia Facial Palsy 4: [0] = Normal symmetrical movements Motor Arm Left 5a: [0] = No drift Motor Arm Right 5b: [0] = No drift Motor Leg Left 6a: [0] = No drift Motor Leg Right 6b: [0] = No drift Limb Ataxia 7: [0] = Absent Sensory 8: [0] = Normal Best Language 9: [0] = No aphasia Dysarthria 10: [0] = Normal Extinction and Inattention 11: [0] = No abnormality NIHSS Total: 1 # PMH-FH-SH Past Medical History: - stroke - Diabetes - hyperlipidemia Medications: - diabetic medication - lipid lowering agent Allergies: - NKDA # Data Time Head CT personally read by me (): 10/21/2024 09:[address]: - early ischemic change - no bleed right occipital lobe # Assessment Impression: - Ischemic Stroke (Acute) right occipital lobe # Plan Thrombolytic/Intervention: NOT IV Thrombolysis or IA Intervention candidate Thrombolytic Exclusion: > 4.5 hours Labs: - lipid panel - hemoglobin A1c - TSH Imaging: (urgency: routine): - MRI Brain without contrast Diagnostic Test: - echo with bubble study Therapy/Evaluation: - PT/OT evaluation - speech/swallow consultation Medication: - clopidogrel (Plavix) 75 mg daily - aspirin 81 mg daily - statin with goal of LDL < 70 Other: - If patient has any neurological deterioration please call back immediately - I have discussed my recommendations with the referring provider Additional Recommendations: if in-house cardiac work up negative, recommend loop recorder prior to discharge for long-term cardiac monitoring looking for paroxysmal atrial fibrillation # Demographics First Name: OLIVIA ROGERS Last Name: MAKEDA Facility: [facility] Yes IMMANUEL MCCLELLAND Jr., MD Oct 21, 2024 09:37
[2024-10-21 10:00] LABS: Triglycerides 129 mg/dL (< 150)
[2024-10-21 10:02] LABS: Cholesterol 141 mg/dL (< 200); HDL Cholesterol 42 mg/dL (40-59)
--- NOTE | 2024-10-21 10:59 | DVH ---
CLINICAL INDICATION: STROKE COMPARISON: CT HEAD WITHOUT CONTRAST on DOS: 10/20/24, CT BRAIN/HEAD WO on DOS: 09/07/24, CT BRAIN on DO S: 08/25/24 TECHNIQUE: Multisequence multiplanar MRI images of the brain were obtained without contrast. FINDINGS: There is restricted diffusion involving the right occipital lobe and adjacent portions of the medial posterior temporal lobe, extending up to 6.6 cm in greatest dimension, consistent with acu te infarct and correlating with the findings seen on same-day CT. There is associated FLAIR hyperinte nsity involving a similar distribution of the right occipital and temporal lobes. No other areas of a cute infarct are seen. There are additional areas of FLAIR hyperintense signal in the periventricular and subcortical white matter, which are nonspecific, but most likely sequelae of chronic small-vesse l ischemic disease. Small chronic infarct in the left basal ganglia. Small chronic lacunar infarcts a re seen in the bilateral thalami. No evidence of acute intracranial hemorrhage. No mass or midline sh ift. Ventricles and sulci are within normal limits. Basal cisterns are patent. Cerebellum, brainstem, and midline structures are within normal limits. Mild mucosal thickening of the paranasal sinuses. O rbits are grossly unremarkable. IMPRESSION: 1. Acute infarct involving the right occipital lobe and adjacent portions of the posterior medial rig ht temporal lobe. 2. Additional nonacute findings as detailed above.
[2024-10-21] MEDS ORDERED: SODIUM CHLORIDE 0.9% 250 ML IV ONE (11:15)
[2024-10-21] MEDS: SODIUM CHLORIDE 0.9% 250 ML IV ONE ×2 (11:18→11:52)
--- NOTE | 2024-10-21 11:22 | DVH ---
CT angio head and neck HISTORY: STROKE TECHNIQUE: Serial axial images were performed to the neck and brain following bolus contrast administ ration of 100 mL of Omnipaque 350. Multiplanar MIP reconstructed imaging was provided and reviewed at the workstation FINDINGS: Neck: There is calcified nonocclusive plaque in the common carotid artery bulb and proximal external and in ternal carotid artery on the left. On the right the common carotid artery is normal. There is some minimal calcified plaque present in t he proximal internal and external carotid arteries. Head: Flow seen through the distal internal carotid arteries and their respective anterior and middle cereb ral artery branches. Flow seen through the basilar artery and posterior cerebral arteries. IMPRESSION: 1. No hemodynamically significant stenosis in the cervical or intracranial vasculature. Vessels are s een in the right occipital CVA zone either due to recanalization or recruited vessels. 2. There is some calcified plaque present in both carotid bulbs and proximal internal carotid arterie s, greater on the left than the right Computed Tomographic Radiation Dosimetry Report: Total CTDI vol = 23.29mGy Total DLP = 916 mGy-cm All CT scans at this medical facility are performed using dose modulation techniques as appropriate t o a performed exam including the following: Automated exposure control was utilized; adjustment of the MA and/or KvP according to patient size; a nd use of iterative reconstruction technique.
[2024-10-21] MEDS: InsuLIN REG 1unit/0.01ml Soln (100units/ml) ONE (11:50)
[2024-10-21] MEDS: FAMOTIDINE (10MG/ML) 2ML VL IV SCH (11:51)
[2024-10-21] MEDS: ATORVASTATIN 20 MG TAB PO ONE (11:51)
[2024-10-21] MEDS: CLOPIDOGREL BISULFATE 75 MG TAB PO SCH (11:52)
--- NOTE | 2024-10-21 22:56 | DVHPN2 ---
Subjective The patient seen and examined at bedside. He said he cannot see on left eye. Reviewed: Care Plan, H&P, Labs, Medications, Previous Orders, Radiology Changes from previous H/P or p: No Changes Eyes: No Pain, No Vision change, No Conjunctivae inflammation, No Eyelid inflammation; Other (Blurred vision); No Redness ENT: No Ear pain, No Ear discharge, No Nose pain, No Nose discharge, No Nose congestion, No Mouth pain, No Mouth swelling, No Throat pain, No Throat swelling, No Other Cardiovascular: No Chest Pain, No Palpitations, No Orthopnea, No Paroxysmal Noc. Dyspnea, No Edema, No Lt Headedness, No Other Respiratory: No Cough, No Dry, No Shortness of breath, No SOB with excertion, No Wheezing, No Hemoptysis, No Pleuritic Pain, No Sputum, No Other Gastrointestinal: No Nausea, No Vomiting, No Abdominal Pain, No Diarrhea, No Constipation, No Melena, No Hematochezia, No Other Genitourinary: No Dysuria, No Frequency, No Incontinence, No Hematuria, No Retention, No Other Musculoskeletal: No other, No neck pain, No shoulder pain, No arm pain, No back pain, No hand pain, No leg pain, No foot pain Skin: No Rash, No Lesions, No Jaundice, No Bruising, No Other Objective Vitals Vital Signs Date Time Temp Pulse Resp B/P (MAP) Pulse Ox O2 Delivery O2 Flow Rate FiO2 10/21/24 21:00 97.6 61 20 123/75 (91) 97 97.6 10/21/24 20:00 Room Air* 0 21 Intake/Output Intake and Output 10/21/24 07:00 Intake Total 120 ml Balance 120 ml Intake Oral 120 ml # Voids 1 General Appearance: Alert, Oriented X3, Cooperative, No acute distress HEENT: Atraumatic, Mucous membr. moist/pink Neck: Supple Lungs: Clear to auscultation, Normal air movement Cardiovascular: Regular rate, Normal S1, Normal S2, No murmurs, Gallops, Rubs Abdomen: Normal bowel sounds, Soft, No tenderness Neuro: Other (lost vision on left eye) Psych/Mental Status: Mental status NL Medications Current Medications Medications Dose Ordered Sig/Carly Route Start Time Stop Time Status Last Admin Dose Admin Clopidogrel Bisulfate 75 mg DAILY PO 10/21/24 10:00 10/21/24 11:52 75 MG Famotidine 20 mg DAILY IV 10/21/24 10:00 10/21/24 11:51 20 MG Hydralazine HCl 10 mg Q6HP PRN IV 10/20/24 20:15 Diagnostic Test (Pha) 1 strip IQ4HR 10/21/24 00:00 10/21/24 19:20 1 STRIP Insulin Human Regular IQ4HR SC 10/21/24 00:00 10/21/24 19:26 3 UNITS Dextrose 50 ml UD PRN IV 10/20/24 20:15 Sodium Chloride 10 ml Q8HR IV 10/20/24 22:00 10/21/24 21:50 10 ML Acetaminophen/ Hydrocodone Bitart 1 tab Q4HP PRN PO 10/20/24 20:15 Ondansetron HCl 4 mg Q4HP PRN IV 10/20/24 20:15 Docusate Sodium 100 mg BIDPRN PRN PO 10/20/24 20:15 Acetaminophen 650 mg Q6HP PRN PO 10/20/24 20:15 10/20/24 22:17 650 MG Nitroglycerin 0.4 mg Q5MINP PRN SL 10/20/24 21:45 Morphine Sulfate 2 mg Q30M PRN IV 10/20/24 21:45 Aspirin 81 mg DAILY PO 10/21/24 10:00 Atorvastatin Calcium 40 mg HS PO 10/22/24 22:00 Laboratory Results Laboratory Tests 10/21/24 05:41 Chemistry Test 10/21/24 05:41 Albumin 4.7 g/dL (3.2-4.8) Calcium Level 9.6 mg/dL (8.7-10.4) Total Protein 6.9 g/dL (5.7-8.2) Lipid panel Test 10/21/24 09:03 Cholesterol Level 141 mg/dL (< 200) HDL Cholesterol 42 mg/dL (40-59) Triglycerides Level 129 mg/dL (< 150) LFT Test 10/21/24 05:41 Alanine Aminotransferase (ALT) 35 U/L (7-40) Alkaline Phosphatase 76 U/L (46-116) Aspartate Amino Transferase (AST) 22 U/L (13-40) Total Bilirubin 0.6 mg/dL (0.2-1.0) Urinalysis Test 10/20/24 17:00 Urine Color Yellow (Yellow) Urine Clarity Clear (Clear) Urine pH 5.0 (5.0-9.0) Urine Specific [place] 1.034 (1.001-1.035) Urine Protein Negative (Negative) Urine Ketones Trace (Negative) Urine Blood Negative /uL (Negative) Urine Nitrite Negative (Negative) Urine Bilirubin Negative (Negative) Urine Urobilinogen Normal mg/dL (Negative) Urine Leukocyte Esterase Negative /uL (Negative) Urine RBC <1 /hpf (0 - 3) Urine Microscopic WBC 2 /HPF (0-3) Urine Squamous Epithelial Cells None seen /hpf (<5) Urine Bacteria None seen /hpf (None Seen) Urine Glucose 4+ mg/dL (Normal) H Labs and/or images reviewed: Labs reviewed by me Assessment/Plan Assessment/Plan Acute CVA at the right occipital lobe and adjacent portions of the posterior medial right temporal lobe. Left eye vision loss Chronic left basal ganglia CVA Dizziness Generalized weakness Diabetes mellitus with hyperglycemia Continuing current management Continuing with Plavix Continuing with aspirin Waiting for Neurology to see the patient I will order 2D echo. The patient might need TERRELL Patient needs to see sand shoveler as outpatient NARESH after discharge Continuing sliding scale insulin This medical document was created using an electronic medical record system with [employer] direct computerized dictation system. Although this document has been carefully reviewed, there may still be some phonetic and typographical errors. These areas are purely typographical due to imperfections of the software programs, and do not reflect any compromise in the patient's medical care. Plan discussed with: Patient My Orders Orders - ANTWAN MÁRQUEZ MD Procedure Category Date Status Time Cardiac DIET 10/21/24 Transmitted Diet-2gna,Lofat,Lochol Dinner Date of Service: Oct 21, 2024 Billing Provider: ANTWAN MÁRQUEZ MD Common Visit Codes: [id number] INP/OBS CARE(HIGH) ANTWAN MÁRQUEZ MD Oct 21, 2024 22:56
[2024-10-22] VITALS (8 sets, daily range): BP systolic 114–157; BP diastolic 61–88; PULSE 53–84; RESP 12–20; TEMP 97.6–98.7; O2SAT 94–99
[2024-10-22 06:27] LABS: Hematocrit 41.9 % (41.0-53.0); Hemoglobin 14.6 g/dL (13.5-17.5); Mean Corpuscular Hemoglobin 31.9 pg (28.0-32.0); Mean Corpuscular Volume 91.4 fL (80.0-100.0); Nucleated Red Blood Cells % 0.0 %
[2024-10-22 06:38] LABS: Anion Gap 11 (5-15); Carbon Dioxide 25 mmol/L (20-31); Chloride 106 mmol/L (98-107); Potassium 3.8 mmol/L (3.5-5.1); Sodium 142 mmol/L (136-145)
[2024-10-22 06:39] LABS: Calcium 9.1 mg/dL (8.7-10.4)
[2024-10-22 06:44] LABS: BUN/Creatinine Ratio 16.1 (10.0-20.0); Blood Urea Nitrogen 15 mg/dL (9-23)
[2024-10-22 06:48] LABS: Glucose 94 mg/dL (74-106)
--- NOTE | 2024-10-22 11:06 | DVHPN2 ---
Subjective The patient seen and examined at bedside. He said he cannot see on left eye. He said his problem with the eye is worsening today. Reviewed: Care Plan, H&P, Labs, Medications, Previous Orders, Radiology Changes from previous H/P or p: No Changes Eyes: No Pain, No Vision change, No Conjunctivae inflammation, No Eyelid inflammation; Other (Blurred vision); No Redness ENT: No Ear pain, No Ear discharge, No Nose pain, No Nose discharge, No Nose congestion, No Mouth pain, No Mouth swelling, No Throat pain, No Throat swelling, No Other Cardiovascular: No Chest Pain, No Palpitations, No Orthopnea, No Paroxysmal Noc. Dyspnea, No Edema, No Lt Headedness, No Other Respiratory: No Cough, No Dry, No Shortness of breath, No SOB with excertion, No Wheezing, No Hemoptysis, No Pleuritic Pain, No Sputum, No Other Gastrointestinal: No Nausea, No Vomiting, No Abdominal Pain, No Diarrhea, No Constipation, No Melena, No Hematochezia, No Other Genitourinary: No Dysuria, No Frequency, No Incontinence, No Hematuria, No Retention, No Other Musculoskeletal: No other, No neck pain, No shoulder pain, No arm pain, No back pain, No hand pain, No leg pain, No foot pain Skin: No Rash, No Lesions, No Jaundice, No Bruising, No Other Objective Vitals Vital Signs Date Time Temp Pulse Resp B/P (MAP) Pulse Ox O2 Delivery O2 Flow Rate FiO2 10/22/24 09:00 97.9 60 12 126/71 (89) 97 97.9 10/21/24 20:00 Room Air* 0 21 Intake/Output Intake and Output 10/22/24 07:00 Intake Total 2000 ml Balance 2000 ml Intake Oral 2000 ml # Voids 4 General Appearance: Alert, Oriented X3, Cooperative, No acute distress HEENT: Atraumatic, Mucous membr. moist/pink Neck: Supple Lungs: Clear to auscultation, Normal air movement Cardiovascular: Regular rate, Normal S1, Normal S2, No murmurs, Gallops, Rubs Abdomen: Normal bowel sounds, Soft, No tenderness Neuro: Other (lost vision on left eye) Psych/Mental Status: Mental status NL Medications Current Medications Medications Dose Ordered Sig/Carly Route Start Time Stop Time Status Last Admin Dose Admin Clopidogrel Bisulfate 75 mg DAILY PO 10/21/24 10:00 10/22/24 08:58 75 MG Famotidine 20 mg DAILY IV 10/21/24 10:00 10/22/24 08:57 20 MG Hydralazine HCl 10 mg Q6HP PRN IV 10/20/24 20:15 Diagnostic Test (Pha) 1 strip IQ4HR 10/21/24 00:00 10/22/24 08:00 1 STRIP Insulin Human Regular IQ4HR SC 10/21/24 00:00 10/22/24 08:00 9 UNITS Dextrose 50 ml UD PRN IV 10/20/24 20:15 Sodium Chloride 10 ml Q8HR IV 10/20/24 22:00 10/22/24 04:41 10 ML Acetaminophen/ Hydrocodone Bitart 1 tab Q4HP PRN PO 10/20/24 20:15 Ondansetron HCl 4 mg Q4HP PRN IV 10/20/24 20:15 Docusate Sodium 100 mg BIDPRN PRN PO 10/20/24 20:15 Acetaminophen 650 mg Q6HP PRN PO 10/20/24 20:15 10/20/24 22:17 650 MG Nitroglycerin 0.4 mg Q5MINP PRN SL 10/20/24 21:45 Morphine Sulfate 2 mg Q30M PRN IV 10/20/24 21:45 Aspirin 81 mg DAILY PO 10/21/24 10:00 10/22/24 08:58 81 MG Atorvastatin Calcium 40 mg HS PO 10/22/24 22:00 Laboratory Results Laboratory Tests 10/22/24 05:34 Chemistry Test 10/22/24 05:34 Calcium Level 9.1 mg/dL (8.7-10.4) Urinalysis Test 10/20/24 17:00 Urine Color Yellow (Yellow) Urine Clarity Clear (Clear) Urine pH 5.0 (5.0-9.0) Urine Specific [place] 1.034 (1.001-1.035) Urine Protein Negative (Negative) Urine Ketones Trace (Negative) Urine Blood Negative /uL (Negative) Urine Nitrite Negative (Negative) Urine Bilirubin Negative (Negative) Urine Urobilinogen Normal mg/dL (Negative) Urine Leukocyte Esterase Negative /uL (Negative) Urine RBC <1 /hpf (0 - 3) Urine Microscopic WBC 2 /HPF (0-3) Urine Squamous Epithelial Cells None seen /hpf (<5) Urine Bacteria None seen /hpf (None Seen) Urine Glucose 4+ mg/dL (Normal) H Labs and/or images reviewed: Labs reviewed by me Assessment/Plan Assessment/Plan Acute CVA at the right occipital lobe and adjacent portions of the posterior medial right temporal lobe. Left eye vision loss Chronic left basal ganglia CVA Dizziness Generalized weakness Diabetes mellitus with hyperglycemia Continuing current management Continuing with Plavix Continuing with aspirin Waiting for Neurology to see the patient I will order 2D echo. The patient might need TERRELL Patient needs to see yard spotter as outpatient NARESH after discharge Continuing sliding scale insulin Restart diet with cardiac carb controlled diet we will reorder a stat CT head to see if any change from his last CT Still waiting for Dr. Reynolds, neurologist to see the patient. This medical document was created using an electronic medical record system with [employer] direct computerized dictation system. Although this document has been carefully reviewed, there may still be some phonetic and typographical errors. These areas are purely typographical due to imperfections of the software programs, and do not reflect any compromise in the patient's medical care. Plan discussed with: Patient, Other (Rn) My Orders Orders - ANTWAN MÁRQUEZ MD Procedure Category Date Status Time Cardiac DIET 10/21/24 Transmitted Diet-2gna,Lofat,Lochol Dinner Complete Blood Count LAB 10/23/24 Verified 05:00 Complete Blood Count LAB 10/24/24 Verified 05:00 Complete Blood Count LAB 10/25/24 Verified 05:00 Complete Blood Count LAB 10/26/24 Verified 05:00 Basic Metabolic Panel LAB 10/23/24 Verified 05:00 Basic Metabolic Panel LAB 10/24/24 Verified 05:00 Basic Metabolic Panel LAB 10/25/24 Verified 05:00 Basic Metabolic Panel LAB 10/26/24 Verified 05:00 Date of Service: Oct 22, 2024 Billing Provider: ANTWAN MÁRQUEZ MD Common Visit Codes: [id number] INP/OBS CARE(HIGH) ANTWAN MÁRQUEZ MD Oct 22, 2024 11:06
[2024-10-22 11:11] LABS: Hepatitis B Surface Antigen Negative (Negative); Hepatitis C Antibody Negative (Negative)
--- NOTE | 2024-10-22 12:41 | ECG ---
[facility] Test Date: 2024-10-20 Test Time: 14:21:33 Pat Name: OLIVIA ASHFORD Department: [facility] ED Patient ID: [facility]-[id number] Room: 0275T Gender: M Pencil Maker: dayo : 1960 Requested By: MINAL WILCOX Order Number: [id number] Reading MD: Sam Palacios Measurements Intervals [place] Rate: 78 P: 58 TX: 188 QRS: 45 QRSD: 108 T: 47 QT: 470 QTc: 536 Interpretive Statements Sinus rhythm Prolonged QT interval Electronically Signed On 10-24-2024 9:31:31 PDT by Sam Palacios Please click the below link to view image of tracing.
--- NOTE | 2024-10-22 13:16 | DVHSR ---
APPROVED REPORT EXAM: Two-dimensional and M-mode echocardiogram with Doppler and color Doppler. Blood Pressure: 137/83 mmHg INDICATION CVA RISK FACTORS Height: 5'8", Weight: 192 DIMENSIONS LVDd5.1 (3.8-5.7cm)LA (2D)3.9 (1.9-4.0cm)Aortic Root3.5 (2.0-3.7cm) LVDs3.4 (2.5-4.0cm)LA (MM) (1.9-4.0cm)Aortic Cusp Exc1.8 (1.5-2.0cm) EF (%) 60.0 (55-70%)Rt. Atrium4.4 (1.9-4.0cm)Asc. Aorta cm IVSd1.1 (0.7-1.1cm)RV (D)4.3 (1.8-2.4cm) PWd0.9 (0.7-1.1cm) Mitral Valve MitralMitral Stenosis E wave0.84m/sMV Mean GR.mmHg A wave1.12m/sMV Peak GR.mmHg E/A ratio0.82D MVAcm2 DECEL [id number] 1/2 Timems Aortic Valve Aortic ValveAortic Stenosis V10.89m/Adelita Mean GR.5mmHg V21.58m/Adelita Peak GR.10mmHg LVOT Diameter2.2 (1.8-2.4cm)Doppler AVA2.14cm2 AI P 1/2 Mvpq449.68ms Pulmonic Valve V21.15m/s Tricuspid Valve TR Velocity2.40m/s [id number] Conclusion lvef 55-60% mild aortic regurg normal rv function normal atria no severe valve abnormality noted
--- NOTE | 2024-10-22 15:41 | DVH ---
CLINICAL HISTORY: WORSENING BLURRED VISION TECHNIQUE: Helical scanning was performed of the head from the skull base to the vertex. Multiplanar reconstructions were performed. This exam was performed according to our departmental dose optimizat ion program. Up-to-date CT equipment and radiation dose reduction techniques are utilized as appropri ate. CTDI 58.8 DLP 139 COMPARISON: CT ANGIO HEAD/NECK on DOS: 10/21/24, MRI BRAIN HEAD WO CONTRAST on DOS: 10/21/24, CT STROKE CTH on DOS: 10/21/24, CT HEAD WITHOUT CONTRAST on DOS: 10/20/24, CT BRAIN/HEAD WO on DOS: 09/07/24 FINDINGS: There is a moderate sized acute right ELECTRICIAN WIRING territory infarct with sided toxic edema and sulcal phase b een involving the right occipital and medial temporal lobes. There is no evidence for hemorrhagic tra nsformation. No new infarct is seen. The ventricular caliber is normal. Small brain volume whilst. Is an old left anterior basal ganglia infarct. There are all bilateral carole lamic infarcts. The basilar submissive not face. The paranasal sinuses demonstrate mild scattered micro periosteal th ickening. IMPRESSION: Moderate sized acute right ELECTRICIAN WIRING territory infarct. No evidence for hemorrhagic transformation.
[2024-10-22] MEDS: hydrALAZINE HCL 20 MG/ML VL IV PRN (17:24)
[2024-10-22] MEDS: ATORVASTATIN 20 MG TAB PO SCH (22:03)
[2024-10-22] MEDS: LORazepam 0.5 MG TAB PO ONE (23:47)
--- NOTE | 2024-10-22 23:55 | DVHINCON2 ---
Date of service: Oct 22, [address] Joy Reason for Consultation Stroke History of Present Illness Mr. Rodriguez is a 64 years old right-handed gentleman with a history of hypertension, diabetes, chronic stroke with residual right-sided weakness. He came [facility] on 11/06[facility]2024 with a chief complaint of dizziness/unsteady gait, vision changes. At this time, the patient alert, oriented to person, place, he knows year and the month, he is not a very good historian I saw him on 04/21/2024 for unsteady gait, history of stroke At home, he developed a weird feeling, he has no memory, he could see everything but not understand what he saw, also had dizziness/unsteady gait, general weakness. In the hospital, MRI confirmed acute stroke in the right occipital and posterior medial right temporal lobe He has history of chronic stroke with residual right-sided weakness, be further described, his baseline is able to walk without a cane. About 1 week ago, he has constant global pounding headache, mostly 5-7/10, with associated-sensitive to lights, but in no nausea, no new numbness or weakness, however for the last 3 days, he has experienced new unsteadiness, and that he tends to drift to the right side when he walks and he started use a cane. He denies vision changes In 01/2023, the patient had acute slurred speech, right-sided weakness (able to move the arm the leg, but was not able to walk), he was treated in the local hospital in the [place], and he was said to have stroke, at home he takes Plavix 75 mg daily and a statin medication. He has mild residual right-sided weakness He does not know if he snores CBC, 10/22/2024: Unremarkable CMP, 10/21/2024: Unremarkable TG/CHO L/LDL/HDL, 04/22/2023: 121/178/87/41, 10/21/2024: 129/144/86/42 TSH, 04/2023: 0.61 Echocardiogram, 10/22/2024: vef 55-60% mild aortic regurg normal rv function normal atria no severe valve abnormality noted CT head, 04/22/23: No acute intracranial abnormality (I see old lacunar stroke in the left basal ganglia region) Head CT, 10/22/2024: Moderate sized acute right CHAR PULLER territory infarct. No evidence for hemorrhagic transformation. (old left anterior basal ganglia infarct) CTA head, neck, 10/21/2024: 1. No hemodynamically significant stenosis in the cervical or intracranial vasculature. Vessels are seen in the right occipital CVA zone either due to recanalization or recruited vessels. 2. There is some calcified plaque present in both carotid bulbs and proximal internal carotid arteries, greater on the left than the right MRI head, 10/21/2024: 1. Acute infarct involving the right occipital lobe and adjacent portions of the posterior medial right temporal lobe. 2. Additional nonacute findings as detailed above Past Medical History Hypertension, diabetes, stroke, Past Surgical History Appendectomy, hernia repair Family History: Chronic obstructive pulmonary disease G8 FATHER Diabetes mellitus G8 FATHER FHx: lung cancer G8 FATHER Family History Hypertension, diabetes, COPD Social History He was a tobacco smoker, he was a drug abuser, but denies a history of alcohol abuse Allergies: Coded Allergies: NO KNOWN ALLERGIES (Unverified , 04/22/23) Home Meds Active Scripts Loratadine (Claritin) 10 Mg Cap, 10 MG PO DAILY PRN, #30 CAP 0 Refills Prov:ELYSSA BENITEZ 09/18/24 Prednisone (Prednisone) 20 Mg Tab, 20 MG PO BID for 5 Days, #10 TAB 0 Refills Prov:ELYSSA BENITEZ 09/18/24 Prednisone (Prednisone) 10 Mg Tab, 10 MG PO DAILY for 7 Days, #7 MG Prov:MINAL WILCOX MD 08/05/24 Prednisone (Prednisone) 20 Mg Tab, 20 MG PO BID for 5 Days, #10 MG Prov:CELY BERNAL MD 06/20/24 Azithromycin (Azithromycin) 500 Mg Tab, 1 TAB PO DAILY for 7 Days, #7 TAB Prov:CELY BERNAL MD 06/20/24 Albuterol Sulfate (Albuterol Sulfate Hfa) 108 Mcg/Act Aer, 108 MCG IN Q6HP PRN, #1 AER 3 Refills Prov:CELY BERNAL MD 06/20/24 Triamcinolone Acetonide (Triamcinolone Acetonide) 0.1 % Oin, 1 APPLIC TOP BID, #80 GRAMS Prov:DANDRE ARZOLA 04/07/24 Methylprednisolone (Medrol Dosepak) 4 Mg David, 4 MG PO UD, #21 TAB UAD Prov:DANDRE ARZOLA 04/07/24 Naproxen (NAPROSYN TABLET) 500 Mg Tb, 500 MG GT BID for 10 Days, #20 TAB Prov:PABLITO CHARLES MD 07/18/23 Insulin Glargine (Lantus) 100 Unit/Ml Inj, 45 UNIT SC HS, #10 INJ Prov:BELLO GUERRERO MD 06/10/23 Clopidogrel Bisulfate (CLOPIDOGREL) 75 Mg Tab, 75 MG PO DAILY for 30 Days, #60 MG Prov:BELLO GUERRERO MD 06/10/23 Empagliflozin (Jardiance) 25 Mg Tab, 25 MG PO DAILY, #60 TAB Prov:BELLO GUERRERO MD 06/10/23 Atorvastatin Calcium (Lipitor) 40 Mg Tab, 1 TAB PO QPM, #90 TAB 1 Refill Prov:BELLO GUERRERO MD 06/10/23 Reported Medications Metformin Hydrochloride (Metformin Hcl) 500 Mg Tab, 1000 MG PO BID for 30 Days, MG 04/23/23 Famotidine (PEPCID TABLET) 20 Mg Tb, 1 TAB PO BID, #60 TAB 5 Refills 04/23/23 Current Medications Current Medications Medications (Trade) Dose Ordered Sig/Carly Route PRN Reason Start Time Stop Time Status Last Admin Atorvastatin Calcium (Lipitor) 40 mg HS PO 10/22/24 22:00 10/22/24 22:03 Review of Systems As above, the other systems are negative Vital Signs Vital Signs Date Time Temp Pulse Resp B/P (MAP) Pulse Ox O2 Delivery O2 Flow Rate FiO2 10/22/24 20:55 98.7 74 20 135/72 (93) 97 98.7 10/22/24 20:00 Room Air* 0 21 Physical Exam GENERAL EXAM: General: the patient is well developed and nourished. No acute distress. HEENT: Normocephalic, neck is supple, no carotid bruits. No mass. RESPIRATORY: Normal respiratory effort with symmetrical lung expansion. Lungs clear to auscultation. CARDIOVASCULAR: Regular rate and rhythm with no murmurs. S1, S2. ABDOMEN: Soft, nontender, normal bowel sound NEUROLOGICAL: MENTAL STATUS: Awake and alert. Oriented to person, place, time and general circumstances. Able to give personal history SPEECH, LANGUAGE, HIGHER CORTICAL FUNCTION: no aphasia or dysathria. CRANIAL NERVES: #2: Intact visual marquez to confrontation. The optic discs were sharp #3,4,6: Pupils are equal, round and reactive. EOMs full and conjugate. No nystagmus. #5: Facial sensation intact in all three divisions bilaterally. Mandibular strength intact. #7: Facial muscles symmetrical and strength intact. #8: Hearing grossly normal to voice. #9,10: Uvula and soft palate rise in the midline. Swallow and voice are normal. #11: Trapezius and sternomastoid strength intact bilaterally. #12: Tongue midline. No fasciculations or atrophy. SENSATION: Sensation to touch and pinprick is diminished in the left upper extremity MOTOR: Normal tone in the upper and lower extremity. Normal muscle bulk. No fasciculations. No abnormal movements or posturing. Muscle strength of the major groups in the upper extremities is 3/5. Muscle strength of the major groups in the lower extremities is 4/5. REFLEXES: Deep tendon reflexes normal and symmetrical. No pathological reflexes. CEREBELLAR/COORDINATION: Finger to nose is normal bilaterally. GAIT/STATION: Mildly unsteady Labs/Diagnostic Data Labs Test 10/22/24 23:31 10/22/24 05:34 10/21/24 09:03 10/21/24 05:41 Range/Units POC Glucose 241 H 70-106 mg/dl White Blood Count 6.9 4.4-10.8 10^3/uL Red Blood Count 4.59 4.5-5.90 10^6/uL Hemoglobin 14.6 13.5-17.5 g/dL Hematocrit 41.9 41.0-53.0 % Mean Corpuscular Volume 91.4 80.0-100.0 fL Mean Corpuscular Hemoglobin 31.9 28.0-32.0 pg Mean Corpuscular Hemoglobin Concent 34.9 32.0-36.0 g/dL Red Cell Distribution Width 14.2 11.8-14.3 % Platelet Count 253 140-450 10^3/uL Mean Platelet Volume 8.7 6.9-10.8 fL Neutrophils (%) (Auto) 55.0 37.0-80.0 % Lymphocytes (%) (Auto) 33.4 10.0-50.0 % Monocytes (%) (Auto) 8.5 0.0-12.0 % Eosinophils (%) (Auto) 2.4 0.0-7.0 % Basophils (%) (Auto) 0.7 0.0-2.0 % Neutrophils # (Auto) 3.8 1.6-8.6 10 ^3/uL Lymphocytes # (Auto) 2.3 0.4-5.4 10 ^3/uL Monocytes # (Auto) 0.6 0-1.3 10 ^3/uL Eosinophils # (Auto) 0.2 0-0.8 10 ^3/uL Basophils # (Auto) 0.1 0-0.2 10 ^3/uL Nucleated Red Blood Cells 0.0 % Sodium Level 142 136-145 mmol/L Potassium Level 3.8 3.5-5.1 mmol/L Chloride Level 106 98-107 mmol/L Carbon Dioxide Level 25 20-31 mmol/L Anion Gap 11 5-15 Blood Urea Nitrogen 15 9-23 mg/dL Creatinine 0.93 0.700-1.30 mg/dL Glomerular Filtration Rate Calc 93 >90 mL/min BUN/Creatinine Ratio 16.1 10.0-20.0 Serum Glucose 94 74-106 mg/dL Calcium Level 9.1 8.7-10.4 mg/dL Triglycerides Level 129 < 150 mg/dL Cholesterol Level 141 < 200 mg/dL LDL Cholesterol 86 < 100 mg/dL HDL Cholesterol 42 40-59 mg/dL Total Bilirubin 0.6 0.2-1.0 mg/dL Aspartate Amino Transferase (AST) 22 13-40 U/L Alanine Aminotransferase (ALT) 35 7-40 U/L Alkaline Phosphatase 76 46-116 U/L Total Protein 6.9 5.7-8.2 g/dL Albumin 4.7 3.2-4.8 g/dL Hepatitis B Surface Antigen Negative Negative Hepatitis C Antibody Negative Negative Test 10/20/24 17:00 10/20/24 14:27 Range/Units Urine Color Yellow Yellow Urine Clarity Clear Clear Urine pH 5.0 5.0-9.0 Urine Specific [place] 1.034 1.001-1.035 Urine Protein Negative Negative Urine Ketones Trace Negative Urine Blood Negative Negative /uL Urine Nitrite Negative Negative Urine Bilirubin Negative Negative Urine Urobilinogen Normal Negative mg/dL Urine Leukocyte Esterase Negative Negative /uL Urine RBC <1 0 - 3 /hpf Urine Microscopic WBC 2 0-3 /HPF Urine Squamous Epithelial Cells None seen <5 /hpf Urine Bacteria None seen None Seen /hpf Urine Glucose 4+ H Normal mg/dL Troponin I High Sensitivity 12 </=54 ng/L Assessment Acute right MCA territory stroke Chronic stroke with residual right-sided weakness and gait disturbance ? Sleep-related breathing disorder Plan/Recommendation Monitoring Supportive treatment Telemetry TERRELL Aspirin 81 mg daily for 21 days Plavix 75 mg daily Lipitor 40 mg daily DVT prophylaxis GI prophylaxis Up to chair Physical therapy More sleep symptoms from the family Stroke risk factors discussed Prognosis: Poor This medical document was created using an electronic medical record system with [employer] dictation system. Although this document has been carefully reviewed, there may still be some phonetic and typographical errors. These areas are purely typographical due to imperfections of the software programs, and do not reflect any compromise in the patient's medical care. Plan discussed with: Patient, Other GILBERTO MILLER MD Oct 22, 2024 23:55
[2024-10-23] VITALS (8 sets, daily range): BP systolic 104–159; BP diastolic 64–87; PULSE 61–85; RESP 16–18; TEMP 97.6–99.1; O2SAT 94–97
[2024-10-23 06:12] LABS: Anion Gap 12 (5-15); Carbon Dioxide 23 mmol/L (20-31); Chloride 103 mmol/L (98-107); Potassium 3.7 mmol/L (3.5-5.1); Sodium 138 mmol/L (136-145)
[2024-10-23 06:13] LABS: Calcium 9.8 mg/dL (8.7-10.4)
[2024-10-23 06:18] LABS: BUN/Creatinine Ratio 13.2 (10.0-20.0); Blood Urea Nitrogen 12 mg/dL (9-23)
[2024-10-23 06:23] LABS: Glucose 149 mg/dL (74-106)
[2024-10-23 06:27] LABS: Hematocrit 42.5 % (41.0-53.0); Hemoglobin 14.9 g/dL (13.5-17.5); Mean Corpuscular Hemoglobin 31.3 pg (28.0-32.0); Mean Corpuscular Volume 89.7 fL (80.0-100.0); Nucleated Red Blood Cells % 0.1 %
--- NOTE | 2024-10-23 10:30 | DVHPN2 ---
Subjective The patient seen and examined at bedside. He said he cannot see on left eye. He said his problem with the eye is the same like yesterday. Reviewed: Care Plan, H&P, Labs, Medications, Previous Orders, Radiology Changes from previous H/P or p: No Changes Eyes: No Pain, No Vision change, No Conjunctivae inflammation, No Eyelid inflammation; Other (Blurred vision); No Redness ENT: No Ear pain, No Ear discharge, No Nose pain, No Nose discharge, No Nose congestion, No Mouth pain, No Mouth swelling, No Throat pain, No Throat swelling, No Other Cardiovascular: No Chest Pain, No Palpitations, No Orthopnea, No Paroxysmal Noc. Dyspnea, No Edema, No Lt Headedness, No Other Respiratory: No Cough, No Dry, No Shortness of breath, No SOB with excertion, No Wheezing, No Hemoptysis, No Pleuritic Pain, No Sputum, No Other Gastrointestinal: No Nausea, No Vomiting, No Abdominal Pain, No Diarrhea, No Constipation, No Melena, No Hematochezia, No Other Genitourinary: No Dysuria, No Frequency, No Incontinence, No Hematuria, No Retention, No Other Musculoskeletal: No other, No neck pain, No shoulder pain, No arm pain, No back pain, No hand pain, No leg pain, No foot pain Skin: No Rash, No Lesions, No Jaundice, No Bruising, No Other Objective Vitals Vital Signs Date Time Temp Pulse Resp B/P (MAP) Pulse Ox O2 Delivery O2 Flow Rate FiO2 10/23/24 08:44 98.5 80 18 141/87 (105) 97 98.5 10/23/24 08:00 Room Air* 0 21 Intake/Output Intake and Output 10/23/24 07:00 Intake Total 1240 ml Balance 1240 ml Intake Oral 1240 ml # Voids 6 # Bowel Movements 1 General Appearance: Alert, Oriented X3, Cooperative, No acute distress HEENT: Atraumatic, Mucous membr. moist/pink Neck: Supple Lungs: Clear to auscultation, Normal air movement Cardiovascular: Regular rate, Normal S1, Normal S2, No murmurs, Gallops, Rubs Abdomen: Normal bowel sounds, Soft, No tenderness Neuro: Other (lost vision on left eye) Psych/Mental Status: Mental status NL Medications Current Medications Medications Dose Ordered Sig/Carly Route Start Time Stop Time Status Last Admin Dose Admin Clopidogrel Bisulfate 75 mg DAILY PO 10/21/24 10:00 10/23/24 09:45 75 MG Famotidine 20 mg DAILY IV 10/21/24 10:00 10/22/24 08:57 20 MG Hydralazine HCl 10 mg Q6HP PRN IV 10/20/24 20:15 10/22/24 17:24 10 MG Diagnostic Test (Pha) 1 strip IQ4HR 10/21/24 00:00 10/23/24 07:26 1 STRIP Insulin Human Regular IQ4HR SC 10/21/24 00:00 10/23/24 05:14 3 UNITS Dextrose 50 ml UD PRN IV 10/20/24 20:15 Sodium Chloride 10 ml Q8HR IV 10/20/24 22:00 10/23/24 05:15 10 ML Acetaminophen/ Hydrocodone Bitart 1 tab Q4HP PRN PO 10/20/24 20:15 Ondansetron HCl 4 mg Q4HP PRN IV 10/20/24 20:15 Docusate Sodium 100 mg BIDPRN PRN PO 10/20/24 20:15 Acetaminophen 650 mg Q6HP PRN PO 10/20/24 20:15 10/22/24 17:24 650 MG Nitroglycerin 0.4 mg Q5MINP PRN SL 10/20/24 21:45 Morphine Sulfate 2 mg Q30M PRN IV 10/20/24 21:45 Atorvastatin Calcium 40 mg HS PO 10/22/24 22:00 10/22/24 22:03 40 MG Aspirin 81 mg DAILY PO 10/24/24 10:00 11/11/24 09:59 Laboratory Results Laboratory Tests 10/23/24 04:52 Chemistry Test 10/23/24 04:52 Calcium Level 9.8 mg/dL (8.7-10.4) Urinalysis Test 10/20/24 17:00 Urine Color Yellow (Yellow) Urine Clarity Clear (Clear) Urine pH 5.0 (5.0-9.0) Urine Specific [place] 1.034 (1.001-1.035) Urine Protein Negative (Negative) Urine Ketones Trace (Negative) Urine Blood Negative /uL (Negative) Urine Nitrite Negative (Negative) Urine Bilirubin Negative (Negative) Urine Urobilinogen Normal mg/dL (Negative) Urine Leukocyte Esterase Negative /uL (Negative) Urine RBC <1 /hpf (0 - 3) Urine Microscopic WBC 2 /HPF (0-3) Urine Squamous Epithelial Cells None seen /hpf (<5) Urine Bacteria None seen /hpf (None Seen) Urine Glucose 4+ mg/dL (Normal) H Labs and/or images reviewed: Labs reviewed by me Assessment/Plan Assessment/Plan Acute CVA at the right occipital lobe and adjacent portions of the posterior medial right temporal lobe. Left eye vision loss Chronic left basal ganglia CVA Dizziness Generalized weakness Diabetes mellitus with hyperglycemia Continuing current management Continuing with Plavix Continuing with aspirin Waiting for Neurology to see the patient Reviewed 2D echo. Lvef 55-60%, mild aortic regurgitation, normal rv function,normal atria,no severe valve abnormality noted Per neurologist, Dr Reynolds, patient will need TERRELL Consult Cardiology for TERRELL. Patient needs to see railroad brakeman as outpatient NARESH after discharge Continuing sliding scale insulin Restart diet with cardiac carb controlled diet we will reorder a stat CT head to see if any change from his last CT Still waiting for Dr. Reynolds, neurologist to see the patient. This medical document was created using an electronic medical record system with [employer] direct computerized dictation system. Although this document has been carefully reviewed, there may still be some phonetic and typographical errors. These areas are purely typographical due to imperfections of the software programs, and do not reflect any compromise in the patient's medical care. Plan discussed with: Patient My Orders Orders - ANTWAN MÁRQUEZ MD Procedure Category Date Status Time Head Without Contrast CT 10/22/24 Resulted 15:05 Date of Service: Oct 23, 2024 Billing Provider: ANTWAN MÁRQUEZ MD Common Visit Codes: [id number] INP/OBS CARE(HIGH) ANTWAN MÁRQUEZ MD Oct 23, 2024 10:30
--- NOTE | 2024-10-23 11:56 | DVHINCON2 ---
Date Seen: Oct 23, 2024 Referring Physician MD Rodolfo Reason for Consultation TERRELL History of Present Illness This is a 64-year-old man who presented to the emergency room with a chief complaint of dizziness associated with blurry vision and an unsteady gait. He has been diagnosed with an acute right MCA territory stroke. Cardiology has been consulted by Neurology team for a transesophageal echocardiogram to rule o ut cardioembolic source. The patient underwent a 12 lead electrocardiogram revealing a sinus rhythm. Troponin level is negative. Significant medical history includes history of cerebrovascular accident with right-sided hemiparesis on Plavix and statin therapy, hypertension, and insulin-dependent diabetes mellitus. Past Medical History Past medical history reviewed. No other significant than mentioned above. Past Surgical History Past surgical history reviewed. No other significant than mentioned above. Family History: Chronic obstructive pulmonary disease G8 FATHER Diabetes mellitus G8 FATHER FHx: lung cancer G8 FATHER Family History Family history reviewed. Social History Denies the use of illicit drugs, alcohol, or tobacco use. Allergies: Coded Allergies: NO KNOWN ALLERGIES (Unverified , 04/22/23) Home Meds Active Scripts Loratadine (Claritin) 10 Mg Cap, 10 MG PO DAILY PRN, #30 CAP 0 Refills Prov:ELYSSA BENITEZ 09/18/24 Prednisone (Prednisone) 20 Mg Tab, 20 MG PO BID for 5 Days, #10 TAB 0 Refills Prov:ELYSSA BENITEZ 09/18/24 Prednisone (Prednisone) 10 Mg Tab, 10 MG PO DAILY for 7 Days, #7 MG Prov:MINAL WILCOX MD 08/05/24 Prednisone (Prednisone) 20 Mg Tab, 20 MG PO BID for 5 Days, #10 MG Prov:CELY BERNAL MD 06/20/24 Azithromycin (Azithromycin) 500 Mg Tab, 1 TAB PO DAILY for 7 Days, #7 TAB Prov:CELY BERNAL MD 06/20/24 Albuterol Sulfate (Albuterol Sulfate Hfa) 108 Mcg/Act Aer, 108 MCG IN Q6HP PRN, #1 AER 3 Refills Prov:CELY BERNAL MD 06/20/24 Triamcinolone Acetonide (Triamcinolone Acetonide) 0.1 % Oin, 1 APPLIC TOP BID, #80 GRAMS Prov:DANDRE ARZOLA 04/07/24 Methylprednisolone (Medrol Dosepak) 4 Mg David, 4 MG PO UD, #21 TAB UAD Prov:DANDRE ARZOLA 04/07/24 Naproxen (NAPROSYN TABLET) 500 Mg Tb, 500 MG GT BID for 10 Days, #20 TAB Prov:PABLITO CHARLES MD 07/18/23 Insulin Glargine (Lantus) 100 Unit/Ml Inj, 45 UNIT SC HS, #10 INJ Prov:BELLO GUERRERO MD 06/10/23 Clopidogrel Bisulfate (CLOPIDOGREL) 75 Mg Tab, 75 MG PO DAILY for 30 Days, #60 MG Prov:BELLO GUERRERO MD 06/10/23 Empagliflozin (Jardiance) 25 Mg Tab, 25 MG PO DAILY, #60 TAB Prov:BELLO GUERRERO MD 06/10/23 Atorvastatin Calcium (Lipitor) 40 Mg Tab, 1 TAB PO QPM, #90 TAB 1 Refill Prov:BELLO GUERRERO MD 06/10/23 Reported Medications Metformin Hydrochloride (Metformin Hcl) 500 Mg Tab, 1000 MG PO BID for 30 Days, MG 04/23/23 Famotidine (PEPCID TABLET) 20 Mg Tb, 1 TAB PO BID, #60 TAB 5 Refills 04/23/23 Home Meds Home medications reviewed. Current Medications Current Medications Medications (Trade) Dose Ordered Sig/Carly Route PRN Reason Start Time Stop Time Status Last Admin Atorvastatin Calcium (Lipitor) 40 mg HS PO 10/22/24 22:00 10/22/24 22:03 Aspirin 81 mg DAILY PO 10/24/24 10:00 11/11/24 09:59 Review of Systems Constitutional: No symptom reported Ears, Nose, & Throat: No symptom reported Eyes: No symptom reported Neurological: Dizziness, unsteady gait, blurry vision Pulmonary/Respiratory: No symptom reported Cardiovascular: No symptom reported Gastrointestinal: No symptom reported Genitourinary: No symptom reported Musculoskeletal: No symptom reported Skin: No symptom reported Psychiatric: No symptom reported Endocrine: No symptom reported Hemotologic/Lymphatic: No symptom reported Vital Signs Vital Signs Date Time Temp Pulse Resp B/P (MAP) Pulse Ox O2 Delivery O2 Flow Rate FiO2 10/23/24 08:44 98.5 80 18 141/87 (105) 97 98.5 10/23/24 08:00 Room Air* 0 21 Physical Exam General Appearance: Cooperative. Well developed. Well nourished. In no acute distress Head Exam: Normal inspection Neck Exam: Normal inspection. Non-tender. Normal alignment Pulmonary/Respiratory: Chest non-tender. Clear bilateral breath sounds Cardiovascular/Chest: Regular rate and rhythm. S1, S2. NSR. No murmurs. No JVD. Peripheral Pulses: 2+ Radial (R). 2+ Radial (L). 2+ Pedal (R). 2+ Pedal (L) Abdominal Exam: Normal bowel sounds. Soft. Nontender. No hepatospenomegaly. No masses Ankle Exam: Negative ankle edema Lower extremities: Negative lower extremity edema Neuro/Mental Status: A&O x2. Poor historian. Uneasy/anxious Thoughts/Psych: Normal thought pattern. Anxious Appearance: In no acute distress Skin Exam: Normal inspection. Normal color. Warm. Dry Labs/Diagnostic Data Labs Test 10/23/24 07:24 10/23/24 04:52 10/21/24 09:03 10/21/24 05:41 Range/Units POC Glucose 124 H 70-106 mg/dl White Blood Count 8.1 4.4-10.8 10^3/uL Red Blood Count 4.74 4.5-5.90 10^6/uL Hemoglobin 14.9 13.5-17.5 g/dL Hematocrit 42.5 41.0-53.0 % Mean Corpuscular Volume 89.7 80.0-100.0 fL Mean Corpuscular Hemoglobin 31.3 28.0-32.0 pg Mean Corpuscular Hemoglobin Concent 34.9 32.0-36.0 g/dL Red Cell Distribution Width 13.6 11.8-14.3 % Platelet Count 290 140-450 10^3/uL Mean Platelet Volume 8.9 6.9-10.8 fL Neutrophils (%) (Auto) 65.6 37.0-80.0 % Lymphocytes (%) (Auto) 23.7 10.0-50.0 % Monocytes (%) (Auto) 9.1 0.0-12.0 % Eosinophils (%) (Auto) 0.9 0.0-7.0 % Basophils (%) (Auto) 0.7 0.0-2.0 % Neutrophils # (Auto) 5.3 1.6-8.6 10 ^3/uL Lymphocytes # (Auto) 1.9 0.4-5.4 10 ^3/uL Monocytes # (Auto) 0.7 0-1.3 10 ^3/uL Eosinophils # (Auto) 0.1 0-0.8 10 ^3/uL Basophils # (Auto) 0.1 0-0.2 10 ^3/uL Nucleated Red Blood Cells 0.1 % Sodium Level 138 136-145 mmol/L Potassium Level 3.7 3.5-5.1 mmol/L Chloride Level 103 98-107 mmol/L Carbon Dioxide Level 23 20-31 mmol/L Anion Gap 12 5-15 Blood Urea Nitrogen 12 9-23 mg/dL Creatinine 0.91 0.700-1.30 mg/dL Glomerular Filtration Rate Calc 95 >90 mL/min BUN/Creatinine Ratio 13.2 10.0-20.0 Serum Glucose 149 H 74-106 mg/dL Calcium Level 9.8 8.7-10.4 mg/dL Triglycerides Level 129 < 150 mg/dL Cholesterol Level 141 < 200 mg/dL LDL Cholesterol 86 < 100 mg/dL HDL Cholesterol 42 40-59 mg/dL Total Bilirubin 0.6 0.2-1.0 mg/dL Aspartate Amino Transferase (AST) 22 13-40 U/L Alanine Aminotransferase (ALT) 35 7-40 U/L Alkaline Phosphatase 76 46-116 U/L Total Protein 6.9 5.7-8.2 g/dL Albumin 4.7 3.2-4.8 g/dL Hepatitis B Surface Antigen Negative Negative Hepatitis C Antibody Negative Negative Test 10/20/24 17:00 10/20/24 14:27 Range/Units Urine Color Yellow Yellow Urine Clarity Clear Clear Urine pH 5.0 5.0-9.0 Urine Specific [place] 1.034 1.001-1.035 Urine Protein Negative Negative Urine Ketones Trace Negative Urine Blood Negative Negative /uL Urine Nitrite Negative Negative Urine Bilirubin Negative Negative Urine Urobilinogen Normal Negative mg/dL Urine Leukocyte Esterase Negative Negative /uL Urine RBC <1 0 - 3 /hpf Urine Microscopic WBC 2 0-3 /HPF Urine Squamous Epithelial Cells None seen <5 /hpf Urine Bacteria None seen None Seen /hpf Urine Glucose 4+ H Normal mg/dL Troponin I High Sensitivity 12 </=54 ng/L Assessment Acute right MCA territory stroke rule out cardioembolic source History of CVA with right-sided hemiparesis Insulin-dependent diabetes mellitus Hypertension Plan/Recommendation (Dr. Palacios) Scheduled for a transesophageal echocardiogram to rule out cardioembolic source. Risks and benefits of the procedure were discussed with the patient, niece, and next of kin (father) at bedside. All questions answered. Given the patient's poor mentation status, consents will be obtained from next of kin. NPO after midnight. Consider an outpatient event monitor to rule out cardiac arrhythmias. Continue neurological recommendations. In the setting of an unremarkable TERRELL, there is no further cardiac workup indicated at this time. Thank you for allowing us to participate in this patient's care. Please call if you have any questions or concerns. This medical document was created using an electronic medical record system with voice recognition software and computerized dictation system. Although this document has been carefully reviewed, there might still be some phonetic and typ ographical errors. Occasional wrong-word or ``sound-alike substitutions may have occurred due to the inherent limitations of voice recognition software. These areas are purely typographical due to imperfections of the software programs and do not reflect any compromise in the patient's medical care. Please read the chart carefully and recognize, using context, where these subs titutions have occurred. Plan discussed with: Patient, Other (Father, niece, primary RN) NYHA Physical activity limitations: NA Date of Service: Oct 23, 2024 Billing Provider: LUISA NEWMAN Cardiology Common Codes: [id number] INP/OBS CARE (High) LUISA NEWMAN Oct 23, 2024 11:56
[2024-10-23] MEDS: TEMAZEPAM 15 MG CAP PO ONE (22:41)
[2024-10-24] VITALS (11 sets, daily range): BP systolic 104–130; BP diastolic 48–59; PULSE 50–70; RESP 12–18; TEMP 97.4–98; O2SAT 94–100
[2024-10-24 07:13] LABS: Hematocrit 40.1 % (41.0-53.0); Hemoglobin 13.9 g/dL (13.5-17.5); Mean Corpuscular Hemoglobin 31.6 pg (28.0-32.0); Mean Corpuscular Volume 90.8 fL (80.0-100.0); Nucleated Red Blood Cells % 0.1 %
[2024-10-24 07:21] LABS: INR 1.03 (0.9-1.15); Partial Thromboplastin Time 27.6 SEC (24.5-34.5); Prothrombin Time 10.9 sec (9.3-11.8)
[2024-10-24 07:22] LABS: Chloride 104 mmol/L (98-107); Potassium 3.9 mmol/L (3.5-5.1); Sodium 140 mmol/L (136-145)
[2024-10-24 07:23] LABS: Anion Gap 12 (5-15); Calcium 9.3 mg/dL (8.7-10.4); Carbon Dioxide 24 mmol/L (20-31)
[2024-10-24 07:29] LABS: BUN/Creatinine Ratio 16.7 (10.0-20.0); Blood Urea Nitrogen 15 mg/dL (9-23)
[2024-10-24 07:30] LABS: Glucose 153 mg/dL (74-106)
--- NOTE | 2024-10-24 08:09 | ECG ---
[facility] Test Date: 2024-10-24 Test Time: 05:57:48 Pat Name: OLIVIA ASHFORD Department: Room: 0275T A Gender: M Functional Mental Disability Teacher: VALERIE : 1960 Requested By: ANTWAN MÁRQUEZ Order Number: [id number] Reading MD: Sam Palacios Measurements Intervals [place] Rate: 53 P: 106 [place]: 205 QRS: 62 QRSD: 114 T: 57 QT: 507 QTc: 477 Interpretive Statements Sinus rhythm Borderline intraventricular conduction delay Borderline prolonged QT interval Electronically Signed On 10-24-2024 9:02:18 PDT by Sam Palacios Please click the below link to view image of tracing.
[2024-10-24 08:34] LABS: Urine Protein, UAD Negative (Negative)
--- NOTE | 2024-10-24 11:02 | DVHPN2 ---
Subjective The patient seen and examined at bedside. He said he cannot see on left eye. He said his problem with the eye is the same like yesterday. Waiting for TERRELL. Reviewed: Care Plan, H&P, Labs, Medications, Previous Orders, Radiology Changes from previous H/P or p: No Changes Eyes: No Pain, No Vision change, No Conjunctivae inflammation, No Eyelid inflammation; Other (Blurred vision); No Redness ENT: No Ear pain, No Ear discharge, No Nose pain, No Nose discharge, No Nose congestion, No Mouth pain, No Mouth swelling, No Throat pain, No Throat swelling, No Other Cardiovascular: No Chest Pain, No Palpitations, No Orthopnea, No Paroxysmal Noc. Dyspnea, No Edema, No Lt Headedness, No Other Respiratory: No Cough, No Dry, No Shortness of breath, No SOB with excertion, No Wheezing, No Hemoptysis, No Pleuritic Pain, No Sputum, No Other Gastrointestinal: No Nausea, No Vomiting, No Abdominal Pain, No Diarrhea, No Constipation, No Melena, No Hematochezia, No Other Genitourinary: No Dysuria, No Frequency, No Incontinence, No Hematuria, No Retention, No Other Musculoskeletal: No other, No neck pain, No shoulder pain, No arm pain, No back pain, No hand pain, No leg pain, No foot pain Skin: No Rash, No Lesions, No Jaundice, No Bruising, No Other Objective Vitals Vital Signs Date Time Temp Pulse Resp B/P (MAP) Pulse Ox O2 Delivery O2 Flow Rate FiO2 10/24/24 08:47 97.4 59 18 106/59 (75) 96 97.4 10/23/24 20:00 Room Air* 0 21 Intake/Output Intake and Output 10/24/24 07:00 Intake Total 1660 ml Balance 1660 ml Intake Oral 1660 ml # Voids 6 General Appearance: Alert, Oriented X3, Cooperative, No acute distress HEENT: Atraumatic, Mucous membr. moist/pink Neck: Supple Lungs: Clear to auscultation, Normal air movement Cardiovascular: Regular rate, Normal S1, Normal S2, No murmurs, Gallops, Rubs Abdomen: Normal bowel sounds, Soft, No tenderness Neuro: Other (lost vision on left eye) Psych/Mental Status: Mental status NL Medications Current Medications Medications Dose Ordered Sig/Carly Route Start Time Stop Time Status Last Admin Dose Admin Clopidogrel Bisulfate 75 mg DAILY PO 10/21/24 10:00 10/23/24 09:45 75 MG Famotidine 20 mg DAILY IV 10/21/24 10:00 10/24/24 09:10 20 MG Hydralazine HCl 10 mg Q6HP PRN IV 10/20/24 20:15 10/22/24 17:24 10 MG Diagnostic Test (Pha) 1 strip IQ4HR 10/21/24 00:00 10/24/24 08:00 1 STRIP Insulin Human Regular IQ4HR SC 10/21/24 00:00 10/24/24 05:10 3 UNITS Dextrose 50 ml UD PRN IV 10/20/24 20:15 Sodium Chloride 10 ml Q8HR IV 10/20/24 22:00 10/24/24 05:10 10 ML Acetaminophen/ Hydrocodone Bitart 1 tab Q4HP PRN PO 10/20/24 20:15 Ondansetron HCl 4 mg Q4HP PRN IV 10/20/24 20:15 Docusate Sodium 100 mg BIDPRN PRN PO 10/20/24 20:15 Acetaminophen 650 mg Q6HP PRN PO 10/20/24 20:15 10/22/24 17:24 650 MG Nitroglycerin 0.4 mg Q5MINP PRN SL 10/20/24 21:45 Morphine Sulfate 2 mg Q30M PRN IV 10/20/24 21:45 Atorvastatin Calcium 40 mg HS PO 10/22/24 22:00 10/23/24 21:43 40 MG Aspirin 81 mg DAILY PO 10/24/24 10:00 11/11/24 09:59 Laboratory Results Laboratory Tests 10/24/24 04:47 Chemistry Test 10/24/24 04:47 Calcium Level 9.3 mg/dL (8.7-10.4) Coagulation Test 10/24/24 04:47 Prothrombin Time 10.9 sec (9.3-11.8) Prothrombin Time INR 1.03 (0.9-1.15) Activated Partial Thromboplast Time 27.6 SEC (24.5-34.5) Urinalysis Test 10/24/24 08:00 Urine Color Yellow (Yellow) Urine Clarity Clear (Clear) Urine pH 5.0 (5.0-9.0) Urine Specific [place] 1.027 (1.001-1.035) Urine Protein Negative (Negative) Urine Ketones Negative (Negative) Urine Blood Negative /uL (Negative) Urine Nitrite Negative (Negative) Urine Bilirubin Negative (Negative) Urine Urobilinogen Normal mg/dL (Negative) Urine Leukocyte Esterase Negative /uL (Negative) Urine RBC None seen /hpf (0 - 3) Urine Microscopic WBC 1 /HPF (0-3) Urine Squamous Epithelial Cells None seen /hpf (<5) Urine Uric Acid Crystals Few /hpf (None Seen) Urine Bacteria None seen /hpf (None Seen) Urine Mucus Few (None Seen) Urine Glucose 4+ mg/dL (Normal) H Labs and/or images reviewed: Labs reviewed by me Assessment/Plan Assessment/Plan Acute CVA at the right occipital lobe and adjacent portions of the posterior medial right temporal lobe. Left eye vision loss Chronic left basal ganglia CVA Dizziness Generalized weakness Diabetes mellitus with hyperglycemia Continuing current management Continuing with Plavix Continuing with aspirin Waiting for Neurology to see the patient Reviewed 2D echo. Lvef 55-60%, mild aortic regurgitation, normal rv function,normal atria,no severe valve abnormality noted Per neurologist, Dr Reynolds, patient will need TERRELL Consult Cardiology for TERRELL. Patient needs to see toll gate tender as outpatient NARESH after discharge Continuing sliding scale insulin Restart diet with cardiac carb controlled diet Will follow up with TERRELL today. This medical document was created using an electronic medical record system with [employer] direct computerized dictation system. Although this document has been carefully reviewed, there may still be some phonetic and typographical errors. These areas are purely typographical due to imperfections of the software programs, and do not reflect any compromise in the patient's medical care. Plan discussed with: Patient, Other (Rn) My Orders Orders - ANTWAN MÁRQUEZ MD Procedure Category Date Status Time Type And Screen BBK 10/24/24 In Process 03:51 Electrocardigram EKG 10/24/24 Resulted 03:53 Date of Service: Oct 24, 2024 Billing Provider: ANTWAN MÁRQUEZ MD Common Visit Codes: [id number] INP/OBS CARE(HIGH) ANTWAN MÁRQUEZ MD Oct 24, 2024 11:02
[2024-10-24] MEDS: LIDOCAINE VISCOUS 2% 15ML UD PO ONE (13:52)
[2024-10-24] MEDS: fentaNYL CITRATE 100 MCG/2 ML VL IV ONE (13:52)
[2024-10-24] MEDS: MIDAZOLAM HCL 2MG/2ML 2ml VIAL (1mg/ml) IV ONE (13:55)
--- NOTE | 2024-10-24 14:15 | DVHOP2 ---
Operative Report - 2 Report Details Date: 10/24/24 Preop Diagnosis: CVA Postop Diagnosis: CVA Surgeon: Ike Palacios MD Anesthesiologist: Conscious sedation Anesthesia: Mac, Local Consent: The patient was informed of the risks and benefits of the procedure. These include but are not limited to complications of anesthesia, postoperative infection, incomplete relief of symptoms, recurrence of symptoms, damage to blood vessels, nerves and tendons, deep venous thrombosis, pulmonary embolism and possible need for repeat surgery in the future. Complications: No complications Findings: Normal TERRELL Indications for Surgery: CVA Name of Procedure Performed Transesophageal echocardiogram Procedure Details Procedure Details: Prior full informed consent obtained the patient was prepped and draped in usual fashion placed in left lateral and semi-Gil positions. We transesophageal probe was passed after the patient had gargled with lidocaine gel. Conscious sedation given. The probe was passed without difficulty. Standard views obtained. Transgastric views also obtained and a bubble study was also obtained. Conclusions 1. Technically good study. Sinus rhythm. Normal chamber sizes. Valves appear to be structurally normal. Left ventricular systolic performance is preserved at 60% with normal RV function. There is trace aortic and tricuspid regurgitation. Mild mitral insufficiency. No intra-atrial shunting noted. No pericardial effusion. No masses or vegetations discernible. The appendage is clean. No significant anomalies noted. No intra-atrial shunting noted. Bubble study did not reveal crossover. Condition Good Disposition Still a Patient Date of Service: Oct 24, 2024 Billing Provider: IKE PALACIOS Sr., MD Cardiology Common Codes: [id number] INP/OBS CARE (High) Cardiology Procedure Codes: 32672-JRM W/IMG DOC INCL PROB ACQ IKE PALACIOS Sr., MD Oct 24, 2024 14:15
[2024-10-25] VITALS (7 sets, daily range): BP systolic 119–142; BP diastolic 65–82; PULSE 59–74; RESP 16–18; TEMP 98–98.2; O2SAT 97–100
[2024-10-25] MEDS: TEMAZEPAM 15 MG CAP PO ONE (00:10)
[2024-10-25 06:21] LABS: Hematocrit 46.3 % (41.0-53.0); Hemoglobin 15.7 g/dL (13.5-17.5); Mean Corpuscular Hemoglobin 30.9 pg (28.0-32.0); Mean Corpuscular Volume 91.4 fL (80.0-100.0); Nucleated Red Blood Cells % 0.1 %
[2024-10-25 06:27] LABS: Anion Gap 12 (5-15); Carbon Dioxide 25 mmol/L (20-31); Chloride 103 mmol/L (98-107); Potassium 4.2 mmol/L (3.5-5.1); Sodium 140 mmol/L (136-145)
[2024-10-25 06:28] LABS: Calcium 9.9 mg/dL (8.7-10.4)
[2024-10-25 06:33] LABS: BUN/Creatinine Ratio 12.5 (10.0-20.0); Blood Urea Nitrogen 12 mg/dL (9-23)
[2024-10-25 06:37] LABS: Glucose 125 mg/dL (74-106)
[2024-10-25] MEDS: IOHEXOL 350 MG/ML 100ML IJ ONE (08:13)
[2024-10-25] MEDS ORDERED: CLOP75TA70 PO ×2 (11:50)
--- NOTE | 2024-10-25 11:52 | DVHDS2 ---
Discharge Summary Date of Admission Oct 20, 2024 at 21:45 Date of Discharge: Oct 25, 2024 Admitting Diagnosis Acute CVA at the right occipital lobe and adjacent portions of the posterior medial right temporal lobe. Left eye vision loss Chronic left basal ganglia CVA Dizziness Generalized weakness Diabetes mellitus with hyperglycemia Labs/Diagnostic Data: Laboratory Results Test 10/25/24 08:03 10/25/24 05:16 10/24/24 08:00 10/24/24 04:47 POC Glucose 299 mg/dl (70-106) White Blood Count 7.7 10^3/uL (4.4-10.8) Red Blood Count 5.06 10^6/uL (4.5-5.90) Hemoglobin 15.7 g/dL (13.5-17.5) Hematocrit 46.3 % (41.0-53.0) Mean Corpuscular Volume 91.4 fL (80.0-100.0) Mean Corpuscular Hemoglobin 30.9 pg (28.0-32.0) Mean Corpuscular Hemoglobin Concent 33.9 g/dL (32.0-36.0) Red Cell Distribution Width 13.7 % (11.8-14.3) Platelet Count 278 10^3/uL (140-450) Mean Platelet Volume 9.0 fL (6.9-10.8) Neutrophils (%) (Auto) 50.1 % (37.0-80.0) Lymphocytes (%) (Auto) 37.7 % (10.0-50.0) Monocytes (%) (Auto) 8.4 % (0.0-12.0) Eosinophils (%) (Auto) 3.1 % (0.0-7.0) Basophils (%) (Auto) 0.7 % (0.0-2.0) Neutrophils # (Auto) 3.9 10 ^3/uL (1.6-8.6) Lymphocytes # (Auto) 2.9 10 ^3/uL (0.4-5.4) Monocytes # (Auto) 0.7 10 ^3/uL (0-1.3) Eosinophils # (Auto) 0.2 10 ^3/uL (0-0.8) Basophils # (Auto) 0.1 10 ^3/uL (0-0.2) Nucleated Red Blood Cells 0.1 % Sodium Level 140 mmol/L (136-145) Potassium Level 4.2 mmol/L (3.5-5.1) Chloride Level 103 mmol/L (98-107) Carbon Dioxide Level 25 mmol/L (20-31) Anion Gap 12 (5-15) Blood Urea Nitrogen 12 mg/dL (9-23) Creatinine 0.96 mg/dL (0.700-1.30) Glomerular Filtration Rate Calc 89 mL/min (>90) BUN/Creatinine Ratio 12.5 (10.0-20.0) Serum Glucose 125 mg/dL (74-106) Calcium Level 9.9 mg/dL (8.7-10.4) Urine Color Yellow (Yellow) Urine Clarity Clear (Clear) Urine pH 5.0 (5.0-9.0) Urine Specific [place] 1.027 (1.001-1.035) Urine Protein Negative (Negative) Urine Ketones Negative (Negative) Urine Blood Negative /uL (Negative) Urine Nitrite Negative (Negative) Urine Bilirubin Negative (Negative) Urine Urobilinogen Normal mg/dL (Negative) Urine Leukocyte Esterase Negative /uL (Negative) Urine RBC None seen /hpf (0 - 3) Urine Microscopic WBC 1 /HPF (0-3) Urine Squamous Epithelial Cells None seen /hpf (<5) Urine Uric Acid Crystals Few /hpf (None Seen) Urine Bacteria None seen /hpf (None Seen) Urine Mucus Few (None Seen) Urine Glucose 4+ mg/dL (Normal) Prothrombin Time 10.9 sec (9.3-11.8) Prothrombin Time INR 1.03 (0.9-1.15) Activated Partial Thromboplast Time 27.6 SEC (24.5-34.5) Test 10/21/24 09:03 10/21/24 05:41 10/20/24 14:27 Triglycerides Level 129 mg/dL (< 150) Cholesterol Level 141 mg/dL (< 200) LDL Cholesterol 86 mg/dL (< 100) HDL Cholesterol 42 mg/dL (40-59) Total Bilirubin 0.6 mg/dL (0.2-1.0) Aspartate Amino Transferase (AST) 22 U/L (13-40) Alanine Aminotransferase (ALT) 35 U/L (7-40) Alkaline Phosphatase 76 U/L (46-116) Total Protein 6.9 g/dL (5.7-8.2) Albumin 4.7 g/dL (3.2-4.8) Hepatitis B Surface Antigen Negative (Negative) Hepatitis C Antibody Negative (Negative) Troponin I High Sensitivity 12 ng/L (</=54) Other Laboratory Tests 10/25/24 05:16 Brief Hx & Hospital Course: This is a 64 years old male with past medical history of CVA with right-sided deficits, diabetes, hyperlipidemia, hypertension come to emergency department because of dizziness. Patient reports experience dizziness associated with blurred vision and unsteady gait started on the morning of admission. Patient had CT showed no acute intracranial abnormality. The patient was admitted. MRI was done. This showed: Acute infarct involving the right occipital lobe and adjacent portions of the posterior medial right temporal lobe. The patient also reports worsening blurred vision to the point that he can not see on his left eye. Neurology saw the patient. Recommend to start the patient on Plavix. The patient had a 2D echo done showed no acute process : lvef 55-60% ,mild aortic regurgitation. normal rv function, normal atria. Neurologist recommend:TERRELL no severe valve abnormality noted TERRELL was done by acid dumper showed Normal chamber sizes. Valves appear to be structurally normal. Left ventricular systolic performance is preserved at 60% with normal RV function. There is trace aortic and tricuspid regurgitation. Mild mitral insufficiency. No intra- atrial shunting noted. No pericardial effusion.No masses or vegetations discernible. The appendage is clean. No significant anomalies noted. No intra- atrial shunting noted. Bubble study did not reveal crossover. The patient was advised to see fire management specialist as soon as possible when he gets discharge. I am discharge the patient home today. Activity as tolerated. Diet low-salt low- cholesterol diet. Follow up with primary care physician 1-2 weeks. Follow up with fire management specialist as soon as he can. Further workup to see if any affect on his retina such as microvascular disease due to diabetes. Physical exam: HEENT: Normocephalic atraumatic pupils equal react to light and accommodation. Extraocular muscles intact, conjunctiva pink, oropharynx moist, no thrush, no exudate. Lymphatic: No lymphadenopathy Cardiovascular exam: S1, S2 was heard. No murmurs, rubs, gallops Lung: Clear on auscultation bilaterally, no wheeze, rale, rhonchi. GI: Abdominal soft, nondistended, nontenderness, positive bowel sounds. Extremity: No crepitus, cyanosis, edema. Pedal pulses present bilateral. Full range of motion. Skin: Normal turgor, no rash. Psych: Alert, oriented x3. Neurology: No focal deficits, cranial nerve II to XII grossly intact. This medical document was created using an electronic medical record system with [employer] computerized dictation system. Although this document has been carefully reviewed, there may still be some phonetic and typographical errors. These areas are purely typographical due to imperfections of the software programs, and do not reflect any compromise in the patient's medical care. Condition at Discharge: Stable Final Diagnosis/Problems List Acute CVA at the right occipital lobe and adjacent portions of the posterior medial right temporal lobe. Left eye vision loss Chronic left basal ganglia CVA Dizziness Generalized weakness Diabetes mellitus with hyperglycemia Discharge Disposition: Home Discharge Instruct/Medications Diet: Cardiac 2g Na,low cholest Activity: No Restrictions, As Tolerated Follow Up/Referral: pcp 1-2 weeks Opthalmologist as soon as he can for evaluation of vision lost Medications: see med list Scheduled Atorvastatin Calcium (Lipitor), 1 TAB PO QPM Azithromycin (Azithromycin), 1 TAB PO DAILY Clopidogrel Bisulfate (Clopidogrel), 75 MG PO DAILY Empagliflozin (Jardiance), 25 MG PO DAILY Famotidine (Pepcid Tablet), 1 TAB PO BID, (Reported) Insulin Glargine (Lantus), 45 UNIT SC HS Metformin Hydrochloride (Metformin Hcl), 1,000 MG PO BID, (Reported) Methylprednisolone (Medrol Dosepak), 4 MG PO UD Naproxen (Naprosyn Tablet), 500 MG GT BID Triamcinolone Acetonide (Triamcinolone Acetonide), 1 APPLIC TOP BID Scheduled PRN Albuterol Sulfate (Albuterol Sulfate Hfa), 108 MCG IN Q6HP PRN Loratadine (Claritin), 10 MG PO DAILY PRN Lorazepam (Ativan), 0.5 MG PO Q8HPRN PRN Discontinued Medications Prednisone (Prednisone), 20 MG PO BID Prednisone (Prednisone), 10 MG PO DAILY Prednisone (Prednisone), 20 MG PO BID Discharge Statement: "Patient was advised to return to the ER or call 911 if any headaches, dizziness, shortness of breath, chest pain, abdominal pain, bleeding, fevers, or worsening of medical condition. Patient was counseled about treatment plan, medications, possible side effects, patientverbalized understanding. All questions were answered to the best of my ability. This discharge took greater then 30 minutes in planning, reviewing documentation, counseling the patient, and discussing with other team members." ASSESSMENT ASSESSMENT Assessment CVA Date of Service: Oct 25, 2024 Billing Provider: ANTWAN MÁRQUEZ MD Common Visit Codes: 92678-LJA/OBS DISCH DAY >30min ANTWAN MÁRQUEZ MD Oct 25, 2024 11:52
[2024-10-25] MEDS ORDERED: LORA-655 PO ×2 (13:28)
== END 2024-10-25 14:36 | disposition home or self-care (01) | DRG 45 ==
LOC: ER 14:13 → OVERFLOW 21:45 → TELE-WESTW 23:34
PROVIDERS: ADMIT Internal Medicine; ATTEND Internal Medicine
PROC: B245ZZ4 Ultrasonography of Left Heart, Transesophageal (ICD-10-PCS; principal; 2024-10-24)
DX: I63.511 Cerebral infarction due to unspecified occlusion or stenosis of right middle cerebral artery (principal); N17.0 Acute kidney failure with tubular necrosis; I69.351 Hemiplegia and hemiparesis following cerebral infarction affecting right dominant side; E11.65 Type 2 diabetes mellitus with hyperglycemia; I10 Essential (primary) hypertension; H54.62 Unqualified visual loss, left eye, normal vision right eye; R29.701 NIHSS score 1; F17.200 Nicotine dependence, unspecified, uncomplicated; E78.5 Hyperlipidemia, unspecified; Z82.5 Family history of asthma and other chronic lower respiratory diseases; Z83.3 Family history of diabetes mellitus; Z82.49 Family history of ischemic heart disease and other diseases of the circulatory system; Z80.1 Family history of malignant neoplasm of trachea, bronchus and lung; Z79.899 Other long term (current) drug therapy; Z79.82 Long term (current) use of aspirin; Z79.4 Long term (current) use of insulin; Z79.02 Long term (current) use of antithrombotics/antiplatelets; Z90.49 Acquired absence of other specified parts of digestive tract
CPT/HCPCS: 36415; 70450; 70496; 70498; 70551; 71045; 80048; 80053; 80061; 81001; 82962; 84484; 85025; 85610; 85730; 86803; 86850; 86900; 86901; 87340; 92610; 93005; 93306; 93312; 97110; 97116; 97163; 97530; 99152; G0378; J1815; J2250; J3490

== ENCOUNTER 2024-10-25 19:34 | Emergency (ER) | payer MEDICAID ==
[~2024-10-25] VITALS: Ht 172.7 cm; Wt 88.6 kg
[~2024-10-25 19:34] MED LIST changes: +LORA-655 PO
--- NOTE | 2024-10-25 20:31 | ED.PDOC ---
History of Present Illness HPI Comments 64-year-old male who came to ER for eye problems. Patient has a history of hypertension and diabetes. Was admitted for 5 days, and was discharged this morning for CVA. Is advised to follow up with the [employer] architect regarding blurring of vision. However at home, noted sudden onset worsening of vision, with noted episode of total vision loss. Patient appears confused and disoriented disoriented at this time of care. Does not recall that he was admitted here, and just got discharged this morning. REVIEW OF SYSTEMS: General: No fever, no chills, or fatigue HEENT: No sore throat, no earache, no congestion, no neck pain. (+) blurred vision (states he is able to see shadows) Cardiac: No chest pain. No palpitations. Lungs: No shortness of breath, no cough. GI: No nausea, no vomiting, no diarrhea, no constipation, no abdominal pain : No dysuria, frequency, or urgency. No hematuria. Musculoskeletal: No joint pain , no joint swelling, no extremity edema. Skin: No rash, no itching. Neuro: No headache, no dizziness, no weakness EXAM: General: Awake, alert and oriented. No acute distress. Skin: Skin in warm, dry and intact. Appropriate color for ethnicity. HEENT: The head is normocephalic and atraumatic. Conjunctivae are clear without exudates or hemorrhage. Sclera is non-icteric. EOM are intact. No signs of nystagmus. Eyelids are normal in appearance without swelling or lesions. Oral mucosa is pink and moist. Patient is able to differentiate colors. Visual acuity L: 20/70 R: 20/100 with glasses IOP: L: 18mmhg R: 16mmhg Neck: The neck is supple with normal range of motion. No JVD. Cardiac: Heart rate and rhythm are normal. No murmurs, gallops, or rubs are auscultated. Respiratory: No signs of respiratory distress. Lung sounds are clear in all l obes bilaterally without rales, rhonchi, or wheezes. Abdominal: Abdomen is soft, non-tender without distention. Bowel sounds are present and normoactive in all four quadrants. Extremities: Upper and lower extremities are atraumatic in appearance without d eformity or edema. Neurological: The patient is awake, alert and oriented to person, place, with normal speech. Speech is clear. There is no facial asymmetry. Shuffling gait Chief Complaint: Eye Problem Time Seen by MD: 20:30 Primary Care Provider: MG Sterling Notes: Nurses Notes Allergies: Coded Allergies: NO KNOWN ALLERGIES (Unverified , 04/22/23) Home Meds Active Scripts Lorazepam (Ativan) 0.5 Mg Tab, 0.5 MG PO Q8HPRN PRN, #20 TAB Prov:ANTWAN MÁRQUEZ MD 10/25/24 Clopidogrel Bisulfate (CLOPIDOGREL) 75 Mg Tab, 75 MG PO DAILY for 30 Days, #60 MG 5 Refills Prov:ANTWAN MÁRQUEZ MD 10/25/24 Loratadine (Claritin) 10 Mg Cap, 10 MG PO DAILY PRN, #30 CAP 0 Refills Prov:ELYSSA BENITEZ 09/18/24 Azithromycin (Azithromycin) 500 Mg Tab, 1 TAB PO DAILY for 7 Days, #7 TAB Prov:CELY BERNAL MD 06/20/24 Albuterol Sulfate (Albuterol Sulfate Hfa) 108 Mcg/Act Aer, 108 MCG IN Q6HP PRN, #1 AER 3 Refills Prov:CELY BERNAL MD 06/20/24 Triamcinolone Acetonide (Triamcinolone Acetonide) 0.1 % Oin, 1 APPLIC TOP BID, #80 GRAMS Prov:DANDRE ARZOLA 04/07/24 Methylprednisolone (Medrol Dosepak) 4 Mg David, 4 MG PO UD, #21 TAB UAD Prov:DANDRE ARZOLA 04/07/24 Naproxen (NAPROSYN TABLET) 500 Mg Tb, 500 MG GT BID for 10 Days, #20 TAB Prov:PABLITO CHARLES MD 07/18/23 Insulin Glargine (Lantus) 100 Unit/Ml Inj, 45 UNIT SC HS, #10 INJ Prov:BELLO GUERRERO MD 06/10/23 Empagliflozin (Jardiance) 25 Mg Tab, 25 MG PO DAILY, #60 TAB Prov:BELLO GUERRERO MD 06/10/23 Atorvastatin Calcium (Lipitor) 40 Mg Tab, 1 TAB PO QPM, #90 TAB 1 Refill Prov:BELLO GUERRERO MD 06/10/23 Reported Medications Metformin Hydrochloride (Metformin Hcl) 500 Mg Tab, 1000 MG PO BID for 30 Days, MG 04/23/23 Famotidine (PEPCID TABLET) 20 Mg Tb, 1 TAB PO BID, #60 TAB 5 Refills 04/23/23 Discontinued Scripts Prednisone (Prednisone) 20 Mg Tab, 20 MG PO BID for 5 Days, #10 TAB 0 Refills Prov:ELYSSA BENITEZ 09/18/24 Prednisone (Prednisone) 10 Mg Tab, 10 MG PO DAILY for 7 Days, #7 MG Prov:MINAL WILCOX MD 08/05/24 Prednisone (Prednisone) 20 Mg Tab, 20 MG PO BID for 5 Days, #10 MG Prov:CELY BERNAL MD 06/20/24 Information Source: Patient Mode of Arrival: Ambulatory Severity: Moderate Past Medical History PAST MEDICAL HISTORY: CVA, DM, HTN Surgical History: Appendectomy, Hernia Repair, Tonsillectomy Family History Family History: Family hx of DM, Family hx of HTN Social History Smoker: Non-Smoker Alcohol: Denies ETOH Use Drugs: Denies Drug Use Lives In: Home Was a procedure done? Was a procedure done?: No Differential Dx Considerations may include: Hypertension, hyperglycemia, CVA, X-Ray, Labs, Meds, VS Vital Signs Date Time Temp Pulse Resp B/P (MAP) Pulse Ox O2 Delivery O2 Flow Rate FiO2 10/25/24 19:34 98.1 90 18 171/59 97 98.1 Lab Test 10/25/24 20:35 Range/Units White Blood Count 9.3 4.4-10.8 10^3/uL Red Blood Count 4.83 4.5-5.90 10^6/uL Hemoglobin 14.7 13.5-17.5 g/dL Hematocrit 44.6 41.0-53.0 % Mean Corpuscular Volume 92.3 80.0-100.0 fL Mean Corpuscular Hemoglobin 30.4 28.0-32.0 pg Mean Corpuscular Hemoglobin Concent 32.9 32.0-36.0 g/dL Red Cell Distribution Width 13.7 11.8-14.3 % Platelet Count 295 140-450 10^3/uL Mean Platelet Volume 8.8 6.9-10.8 fL Neutrophils (%) (Auto) 66.2 37.0-80.0 % Lymphocytes (%) (Auto) 23.5 10.0-50.0 % Monocytes (%) (Auto) 8.5 0.0-12.0 % Eosinophils (%) (Auto) 1.2 0.0-7.0 % Basophils (%) (Auto) 0.6 0.0-2.0 % Neutrophils # (Auto) 6.2 1.6-8.6 10 ^3/uL Lymphocytes # (Auto) 2.2 0.4-5.4 10 ^3/uL Monocytes # (Auto) 0.8 0-1.3 10 ^3/uL Eosinophils # (Auto) 0.1 0-0.8 10 ^3/uL Basophils # (Auto) 0.1 0-0.2 10 ^3/uL Nucleated Red Blood Cells 0.1 % Sodium Level 138 136-145 mmol/L Potassium Level 4.1 3.5-5.1 mmol/L Chloride Level 101 98-107 mmol/L Carbon Dioxide Level 24 20-31 mmol/L Anion Gap 13 5-15 Blood Urea Nitrogen 12 9-23 mg/dL Creatinine 1.19 0.700-1.30 mg/dL Glomerular Filtration Rate Calc 69 >90 mL/min BUN/Creatinine Ratio 10.1 10.0-20.0 Serum Glucose 222 H 74-106 mg/dL Calcium Level 9.7 8.7-10.4 mg/dL Time of 1ST Reevaluation: 20:26 Reevaluation 1ST: Unchanged Patient Education/Counseling: Need For Follow Up Family Education/Counseling: Need For Follow Up SEPSIS Sepsis Screen Date sepsis recognized/suspect: Oct 25, 2024 Time Sepsis recognized/suspect: 1933 Recent Procedure: No On Antibiotic Therapy: No Respiratory Rate >20: No Heart Rate >90: No Temp<36 C (96.8 F) or >38.3 C: No SBP <90 or MAP <65 mmHG: No New Acute Mental Status Change: No Is the patient on CPAP, BIPAP,: No Physician Orders Head Without Contrast (10/25/24 20:22) Imaging Transfer Request (10/25/24 22:27) Vital Signs Date Time Temp Pulse Resp B/P (MAP) Pulse Ox O2 Delivery O2 Flow Rate FiO2 10/25/24 19:34 98.1 90 18 171/59 97 98.1 Laboratory Tests Test 10/25/24 20:35 White Blood Count 9.3 10^3/uL (4.4-10.8) Departure 1 Departure Time of Disposition: 23:35 Impression: Primary Impression: Vision loss Disposition: 02 SHORT TERM HOSPITAL Condition: Stable Comments Discussed with Dr. Schmitz at [facility] at 23:35 who accepts patient for transfer for ophthalmology evaluation. I reviewed the following notes from the pt's past medical encounters: Recent admission for TIA Additional information was gathered from interviewing the following independent historians: Patient's father at bedside Decision regarding hospitalization or escalation of hospital level of care: Risk and benefits of admission for further treatment of patient's condition was considered. Due to patient's current clinical condition, high risk of decline and poor outcome if discharged and need for further inpatient management and monitoring, patient will be admitted to the hospital. Critical Care Note Critical Care Time?: No Stability Stability form required: No Heart Score Heart Score: Heart Score Response (Comments) Value History N/A 0 EKG N/A 0 Age N/A 0 Risk Factors N/A 0 Troponin N/A 0 Total 0 I personally scribed for ABIMAEL ROCA MD ([email or web address]) on 10/25/24 at 20:31. Electronically submitted by Leland Sow ([email or web address]). ABIMAEL ROCA MD Oct 25, 2024 20:31
[2024-10-25 20:55] LABS: Chloride 101 mmol/L (98-107); Potassium 4.1 mmol/L (3.5-5.1); Sodium 138 mmol/L (136-145)
[2024-10-25 20:56] LABS: Anion Gap 13 (5-15); Carbon Dioxide 24 mmol/L (20-31)
[2024-10-25 20:57] LABS: Calcium 9.7 mg/dL (8.7-10.4)
[2024-10-25 20:58] LABS: Hematocrit 44.6 % (41.0-53.0); Hemoglobin 14.7 g/dL (13.5-17.5); Mean Corpuscular Hemoglobin 30.4 pg (28.0-32.0); Mean Corpuscular Volume 92.3 fL (80.0-100.0); Nucleated Red Blood Cells % 0.1 %
[2024-10-25 21:02] LABS: BUN/Creatinine Ratio 10.1 (10.0-20.0); Blood Urea Nitrogen 12 mg/dL (9-23)
[2024-10-25 21:11] LABS: Glucose 222 mg/dL (74-106)
--- NOTE | 2024-10-25 22:17 | DVH ---
EXAM: CT HEAD WITHOUT CONTRAST INDICATION: recent tia, worsening blurred vision TECHNIQUE: CT of the head without intravenous contrast. Radiation Dose Information: CT Dose: CTDI volume is 55.26 mGy. Dose-length product is 1089.05 mGy*cm The dose indicators for CT are the volume Computed Tomography (CT) Dose Index (CTDIvol) and the Dose Length Product (DLP), and are measured in units of mGy and mGy-cm, respectively. These indicators are not patient dose, but values generated from the CT scanner acquisition factors. The report includes radiation exposure data for exposures received during this examination. COMPARISON: CT HEAD WITHOUT CONTRAST on DOS: 10/22/24, MRI BRAIN HEAD WO CONTRAST on DOS: 10/21/24, CT STROKE CTH on DOS: 10/21/24 FINDINGS: There is no evidence of acute intracranial hemorrhage, extra-axial collection, mass effect, midline s hift, herniation or hydrocephalus. Area of encephalomalacia right posterior parietal occipital lobe unchanged from 10/22/2024. This is n ew when compared to 11/2023. Small bilateral lacunar infarcts in the thalamus unchanged from 10/21/2024. This is new when compare d to 07/18/2023. Area of encephalomalacia suggest old infarct left basal ganglion unchanged from 07/18/2023. The ventricles, sulci and cisterns are age appropriate. The dozier-white differentiation is intact. Patchy periventricular and subcortical white matter hypoattenuation is nonspecific but may be related to small vessel ischemic disease. The visualized paranasal sinuses and mastoid air cells are clear. The surrounding soft tissues and osseous structures are unremarkable. IMPRESSION: 1. No acute intracranial hemorrhage. 2. Stable lacunar infarcts in the thalamus bilaterally when compared to 10/21/2024 new when compared to 07/18/2023. 3. Ischemic infarct in the right occipital lobe unchanged from 10/22/2024 but new when compared to . 4. Stable small area of encephalomalacia left basal ganglion unchanged from 10/21/2024. Also seen and unchanged from the study of 07/18 2023.
[2024-10-26 01:00] VITALS: PULSE 83; RESP 14; O2SAT 94
[2024-10-26 01:15] VITALS: BP 130/63; PULSE 76; RESP 18; TEMP 98.2; O2SAT 97
== END 2024-10-26 01:17 | disposition short-term general hospital (02) ==
LOC: ER 19:37
DX: H54.7 Unspecified visual loss (principal); I10 Essential (primary) hypertension; E11.9 Type 2 diabetes mellitus without complications; Z86.73 Personal history of transient ischemic attack (TIA), and cerebral infarction without residual deficits; Z98.890 Other specified postprocedural states; Z79.84 Long term (current) use of oral hypoglycemic drugs; Z79.52 Long term (current) use of systemic steroids; Z79.02 Long term (current) use of antithrombotics/antiplatelets; Z79.1 Long term (current) use of non-steroidal anti-inflammatories (NSAID); Z90.49 Acquired absence of other specified parts of digestive tract; Z90.89 Acquired absence of other organs
CPT/HCPCS: 36415; 70450; 80048; 85025